=== PATIENT | male | born 1945 | race Caucasian/White ===

== ENCOUNTER 2016-12-04 13:04 | Observation (INO) | payer MEDICARE ==
[~2016-12-04] VITALS: Ht 175.3 cm; Wt 83.6 kg
[~2016-12-04 13:04] MED LIST: ASPI325T32 PO; CRES20T PO; FLUO20TA28 PO; LANS30TA4 PO; LOSA25TA21 PO; METH750T3 PO; METO25TA6 PO; NIAC500T21 PO; NITR0.4T6 SL; POTA2TAB5 PO; RIVA1PAT9 TRANSDERM
[2016-12-04] MEDS ORDERED: Haloperidol 5 mg/mL Inj ONE ×2 (13:51→15:28)
[2016-12-04 13:56] VITALS: BP 167/88; PULSE 69; RESP 20; O2SAT 98
[2016-12-04] MEDS ORDERED: 0.9% Sodium Chloride 1,000 ML IV ONE (14:05)
--- NOTE | 2016-12-04 14:23 | ED.REPORT ---
HPI-General Illness Date of Service Dec 04, 2016 ED Provider: Gary Villareal MD Pateint is a 71 year old male with a hx of dementia, CAD, AAA, hyperlipidemia, and HTN who presents to the ED s/p a found him walking down [address]. was unsure if the patient was at baseline and brought him here. was contacted and reports he is at baseline. Per , he has been slowly declining and has even become aggressive at home. He takes rivastigmine daily but was not given his medications today. Unable to obtain further history from this patient secondary to his mental status and dementia. Nursing Notes Stated Complaint: DEMENTIA Chief Complaint: Psychiatric Complaint Nursing Notes Reviewed: Yes Allergies: Coded Allergies: codeine (Verified Allergy, Unknown, 02/23/15) Scheduled Aspirin (Aspirin) 81 Mg Tablet 81 MG PO DAILY Fluoxetine (Fluoxetine) 20 Mg Tablet 40 MG PO DAILY Lansoprazole ODT (Prevacid ODT) 30 Mg Tab.rap.dr 30 MG PO DAILY Losartan Potassium (Losartan Potassium) 25 Mg Tablet 25 MG PO DAILY Metoprolol Succinate ER (Metoprolol Succinate ER) 50 Mg Tab.er.24h 50 MG PO DAILY Niacin ER (Niacin ER) 1,000 Mg Tablet 3,000 MG PO HS [place]-3/Dha/Epa/Fish Oil (Fish Oil 1,000 mg Softgel) 1 Each Capsule 1 EACH PO DAILY Potassium Gluconate (Potassium Gluconate) 90 Mg Tablet 270 MG PO DAILY Rivastigmine Patch (Exelon Patch) 9.5 Mg Patch 9.5 MG TRANSDERM DAILY Rosuvastatin Calcium (Crestor) 20 Mg Tablet 20 MG PO DAILY Scheduled PRN Methocarbamol (Methocarbamol) 750 Mg Tablet 750 MG PO QID PRN PRN For Spasm Nitroglycerin SL (Nitroglycerin SL) 0.4 Mg Tab.subl 0.4 MG SL Q5MIN PRN PRN For Chest Pain General Time Seen by MD: 14:04 Chief Complaint Altered mental status Hx Obtained From: Spouse, Police Arrived By: Police Sudden in Onset?: No Severity: Current: No pain currently Severity: Maximum: No pain Similar Sx Previous: Yes Past Medical History Past Medical History Notes: Patient states his chronic baseline heart rate is in the 40s. Past Medical History Coronary artery disease status post CABG for three-vessel disease in August 2009 at [facility]. Hypercholesterolemia Expressive aphasia Peripheral vascular disease history of AAA (unknown size, actively monitored by pcp) Mild dementia Reports: GERD, Hyperlipidemia, Hypertension Past Surgical History CABG 3 utilizing left internal mammary artery graft to left anterior descending, saphenous vein graft to the mus intermedius, radial artery graft to the right posterior descending in August 2009 Status post cardiac catheterization for possible ST segment elevation [place] - but it did not demonstrate any obvious acute ischemic substrate (he did have "mild to moderate distal left main disease and mild LAD disease, and PEREZ graft to his LAD was atretic probably related to a low-flow state chronically per the summary report") in August 2011 Retinal detachment repair Smoking History Former Smoker Social History Alcohol Use: "Social" Ambulatory Status Independent Unable to Obtain History Past medical history, Past surgical history, Family history, Smoking history, Social history, Occupation Review of Systems Unable to Obtain ROS Patient condition, Mental status Physical Exam Nursing note and vitals reviewed. Constitutional: Well-developed, well-nourished. Not diaphoretic. Head: Normocephalic and atraumatic. Mouth/Throat: Oropharynx is clear and moist. No oropharyngeal exudate. Eyes: Pupils are equal, round, and reactive to light. Neck: Supple, no tracheal deviation. Cardiovascular: Normal rate, regular rhythm. Equal and intact distal pulses throughout. Pulmonary/Chest: Effort normal and breath sounds normal. No respiratory distress. Abdominal: Soft. No distension. There is no tenderness, rebound, or guarding. Bowel sounds present. Musculoskeletal: Range of motion grossly intact, moving all extremities. No edema or tenderness appreciated. Neurological: Alert. Grossly nonfocal exam. Strength and sensation seems intact and equal to bilateral upper and lower extremities. Normal gait. Slurred speech (at baseline per ). Skin: Warm and dry, no rashes or pallor appreciated. Psychiatric: Unable to assess secondary to patient's mental status. Vital Signs Vital Signs Date Time Temp Pulse Resp B/P Pulse Ox O2 Delivery O2 Flow Rate FiO2 12/04/16 13:56 69 20 167/88 98 Room Air Interpretation & Diagnostics Lab Results Interpretation Result Diagram: 12/04/16 1423 12/04/16 1423 Test 12/04/16 14:23 White Blood Count 5.6th/mm3 (3.8-10.1) Red Blood Count 4.74mil/mm3 (4.40-5.80) Hemoglobin 15.2g/dL (13.8-17.2) Hematocrit 42.8% (41.0-50.0) Mean Corpuscular Volume 90.3fL (81-100) Mean Corpuscular Hemoglobin 32.1pg (27.0-35.0) Mean Corpuscular Hemoglobin Concent 35.5% (32.0-37.0) Red Cell Distribution Width 13.1% (12.3-15.4) Platelet Count 109bil/L (150-400) Neutrophils (%) (Auto) 71.2% (40-74) Lymphocytes (%) (Auto) 15.9% (14-46) Monocytes (%) (Auto) 10.8% (4-12) Eosinophils (%) (Auto) 1.3% (0-5) Basophils (%) (Auto) 0.4% (0-3) Sodium Level 138mEq/L (134-144) Potassium Level 4.2mEq/L (3.5-5.2) Chloride Level 99mEq/L (97-108) Carbon Dioxide Level 22mmol/L (18-29) Blood Urea Nitrogen 16mg/dL (8-27) Creatinine 0.91mg/dL (0.76-1.27) Estimat Glomerular Filtration Rate 87mL/min (>59) Glucose Level 125mg/dL (60-99) Lactic Acid Level 1.4mmol/L (0.4-2.0) Calcium Level 9.4mg/dL (8.5-10.1) Magnesium Level 1.7mg/dL (1.6-2.6) Total Bilirubin 0.9mg/dL (0.0-1.2) Aspartate Amino Transf (AST/SGOT) 22U/L (0-50) Alanine Aminotransferase (ALT/SGPT) 16U/L (0-44) Alkaline Phosphatase 74U/L (25-160) Total Protein 7.2g/dL (6.4-8.4) Albumin 4.9g/dL (3.4-5.0) Alcohols < 10mg/dL (0-10) ECG Interpretation ECG Interpretation: sinus rate 61 Nonspecific untraventricular conduciton delay Inferior infarct, old Time: 14:50 Interpreted by: ED physician X-Ray Chest Interpretation Chest Xray Interpretation: IMPRESSION: No acute pulmonary process. Right apex is obscured as above. Dictated by: Maryana Gurrola M.D. on 12/04/2016 at 14:27 Approved by: Maryana Gurrola M.D. on 12/04/2016 at 14:28 View: Portable, 1 view Interpretation / Wet Read by: Interpret - Radiologist CT Head Interpretation IMPRESSION: No acute intracranial abnormality. Dictated by: Shaggy Steel M.D. on 12/04/2016 at 15:08 Approved by: Shaggy Steel M.D. on 12/04/2016 at 15:09 Study: Head CT no contrast Interpretation / Wet Read by: Interpret - Radiologist Re-Eval/Medical Decision Med Decision/Clinical Course In summary, 71-year-old male with a history of dementia presenting to the ED after being found wandering in the streets and brought in by the Laboratory Technician after concerned that he would be an imminent threat to himself or others. arrives to the ED shortly after his arrival and states that he is at his baseline with respect to his neurologic status and slurred speech, however has been having some waxing and waning aggression and altered mental status over the past several days. Concern for delirium versus metabolic abnormality versus acute intracranial abnormality. Head CT negative for acute abnormality. Laboratory studies unremarkable, including a normal CMP, CBC (with the exception of platelets of 109) blood alcohol negative; urinalysis pending at this time. Chest x-ray with no evidence of a pneumonia. is concerned that she will no longer be able to care for him at home and he is not taking adequate care of himself. Given the above, plan admission for further management and evaluation of his delirium and failure to thrive. Of note, upon his arrival, he was not cooperative with staff, aggressive, and despite extensive verbal de-escalation, the patient required Haldol, Ativan, and Benadryl. He responded well to this and was sleeping afterwards. Family agreeable to the plan as stated, no further questions. Source of Hx: Old records Time of Eval: 14:30 Re-Evaluation/Progress Note: Discussed plan for admission with pt's . understands and agrees with plan. All questions addressed at this time. Consultation : Referral / Consult Name: Oswaldo Harris MD Consulted With: Hospitalist Call Returned at: 15:07 Roll Operator: Will see patient, Agrees with eval, Agrees with plan, Accepts admit Note: Discussed pt's case. Accepts admit. Counseled Regarding: Diagnosis, Need for admission Discharge & Departure Primary Impression: Delirium Additional Impression: Failure to thrive Failure to thrive age range: in adult Qualified Code: R62.7 - Adult failure to thrive Disposition: ADMITTED TO HOSPITAL Discharge Condition All VS Reviewed: Yes Condition: Stable Referrals: Lennox Nguyễn MD (PCP) Scribe Attestation Portions of this note were transcribed by Yana Kinsey. I, Dr. Villareal personally performed the history, physical exam and medical decision-making; I reviewed and confirmed the accuracy of the information in the transcribed note. Signed by: Av Elizondo, 12/04/16 copies to: Lennox Nguyễn MD, William B MD Dec 04, 2016 14:23 YANA KINSEY Dec 04, 2016 14:29
[2016-12-04 14:30] LABS: BASOPHILS % (AUTO) 0.4 % (0-3); EOSINOPHILS % (AUTO) 1.3 % (0-5); MONOCYTES % (AUTO) 10.8 % (4-12); Mean Corpuscular Hemoglobin 32.1 pg (27.0-35.0); Mean Corpuscular Volume 90.3 fL (81-100); NEUTROPHILS % (AUTO) 71.2 % (40-74); Platelet Count 109 bil/L (150-400)
--- NOTE | 2016-12-04 14:30 | DRSVH ---
PROCEDURE: X-RAY CHEST ONE VIEW, PORTABLE ([id number]) INDICATIONS: dementia, Altered mental status TECHNIQUE: One view of the chest was acquired. COMPARISON: [facility], , CHEST 1VW (PORTABLE), 07/28/2014, 16:09. FINDINGS: Surgical changes and devices: Sternal wires consistent with previous sternotomy. Lungs and pleura: No pleural effusions or pneumothorax. Lungs are clear. It is noted that the righ t apex remains obscured secondary to patient positioning. Mediastinum: Mediastinal contours appear normal. Heart size is normal. Bones and chest wall: No suspicious bony lesions. Overlying soft tissues appear unremarkable. IMPRESSION: No acute pulmonary process. Right apex is obscured as above. Dictated by: Maryana Gurrola M.D. on 12/04/2016 at 14:27 Approved by: Maryana Gurrola M.D. on 12/04/2016 at 14:28
[2016-12-04 14:54] LABS: Magnesium 1.7 mg/dL (1.6-2.6)
--- NOTE | 2016-12-04 15:10 | DRSVH ---
PROCEDURE: CT BRAIN WITHOUT CONTRAST ([id number]) INDICATIONS: AMS TECHNIQUE: Noncontrast 4.5 mm thick angled axial sections acquired from the foramen magnum to the vertex, with c oronal reformats. COMPARISON: [facility], CT, CT BRAIN WO CON, 02/23/2015, 16:59. FINDINGS: Image quality: Limited by positioning factors. CSF spaces: Basal cisterns are patent. No extra-axial fluid collections. The ventricles are symmet sunshine in size and shape. Brain: No intracranial bleeds or masses. There is cerebral volume loss for age, with resultant vent ricular and sulcal prominence. There are periventricular and deep white matter chronic small vessel ischemic changes. There is intracranial internal carotid artery atherosclerosis. Skull and face: Calvarium and visualized facial bones appear intact, without suspicious lesions. Sinuses: Visualized sinuses and mastoids are clear. IMPRESSION: No acute intracranial abnormality. Dictated by: Shaggy Steel M.D. on 12/04/2016 at 15:08 Approved by: Shaggy Steel M.D. on 12/04/2016 at 15:09
[2016-12-04] MEDS ORDERED: NIAC100045 PO (15:15)
[2016-12-04] MEDS ORDERED: METO-272 PO (15:15)
[2016-12-04] MEDS ORDERED: RIVA1PAT3 TRANSDERM (15:15)
[2016-12-04] MEDS ORDERED: OMEG-38 PO (15:15)
[2016-12-04] MEDS ORDERED: ASPI-973 PO (15:15)
[2016-12-04] MEDS ORDERED: Polyethylene Glycol (PEG) 17 Gm Powder PO PRN (15:40)
[2016-12-04] MEDS ORDERED: Ondansetron 2 mg/mL 2 mL Inj IVPUSH PRN (15:40)
[2016-12-04] MEDS ORDERED: Alum-Mag Hydrox-Simeth 30 mL Suspension PO PRN (15:40)
--- NOTE | 2016-12-04 16:13 | NUR ---
Arrival to Floor Patient arrives to floor from ED via gurney with two soft restraints in place. Patient non-verbal, kicking at staff with legs. Skin tear noted on left hand and arm. No IV access at this time, patient uncooperative with assessment. After 10 min time post transfer patient resting with the appearance of comfort. Sitter present at bedside, skin tears dressed by charge master specialist. Care is ongoing.
[2016-12-04 18:17] VITALS: BP 159/80; PULSE 54; RESP 14; O2SAT 95
--- NOTE | 2016-12-04 20:21 | PCM.HPMED ---
Subjective Date of Service Dec 04, 2016 Primary Provider: Admitting Physician: Oswaldo Harris MD Primary Care Physician: Lennox Nguyễn MD Attending Physician: Oswaldo Harris MD Chief Complaint: Altered mental status, brought in by police History of Present Illness: Mr. Niall De La Rosa is a 71-year-old male with a past medical history of CAD, AAA, hyperlipidemia, and HTN, progressive dementia and recent increase in aggressive activity at home, presenting to the ED after being found wandering [address] and brought in by the Administrative Analyst after concerned that he would be an imminent threat to himself or others. arrived to the ED shortly after his arrival and states that he is at his baseline with respect to his neurologic status and slurred speech. She reports however he has been having some waxing and waning aggression and altered mental status over the past several days. She states she cannot care for him any longer. Of note, upon his arrival, he was not cooperative with staff, aggressive, and despite extensive verbal de-escalation, the patient required Haldol, Ativan, and Benadryl. He responded well to this and was sleeping afterwards. Family agreeable to the plan as stated, no further questions. He has a rivastigmine patch on daily but was not given his medications today. Unable to obtain further history from this patient secondary to his mental status and dementia. In the ED patients vitals: T-36.2, HR-54, RR-14, BP-167/88, 98% RA. Head CT negative for acute abnormality. Chest x-ray with no evidence of a pneumonia. No notable lab abnormalities aside from CBC (with the exception of platelets of 109) blood alcohol negative; urinalysis pending at this time. Patient was admitted as an inpatient for delirium and failure to thrive. Review of Systems: A comprehensive review of systems was conducted with the patient and found to be negative except as above in the History of Present Illness. Allergies Coded Allergies: codeine (Verified Allergy, Unknown, 02/23/15) Home Medications Scheduled Aspirin (Aspirin) 81 Mg Tablet 81 MG PO DAILY Fluoxetine (Fluoxetine) 20 Mg Tablet 40 MG PO DAILY Lansoprazole ODT (Prevacid ODT) 30 Mg Tab.rap.dr 30 MG PO DAILY Losartan Potassium (Losartan Potassium) 25 Mg Tablet 25 MG PO DAILY Metoprolol Succinate ER (Metoprolol Succinate ER) 50 Mg Tab.er.24h 50 MG PO DAILY Niacin ER (Niacin ER) 1,000 Mg Tablet 3,000 MG PO HS [place]-3/Dha/Epa/Fish Oil (Fish Oil 1,000 mg Softgel) 1 Each Capsule 1 EACH PO DAILY Potassium Gluconate (Potassium Gluconate) 90 Mg Tablet 270 MG PO DAILY Rivastigmine Patch (Exelon Patch) 9.5 Mg Patch 9.5 MG TRANSDERM DAILY Rosuvastatin Calcium (Crestor) 20 Mg Tablet 20 MG PO DAILY Scheduled PRN Methocarbamol (Methocarbamol) 750 Mg Tablet 750 MG PO QID PRN PRN For Spasm Nitroglycerin SL (Nitroglycerin SL) 0.4 Mg Tab.subl 0.4 MG SL Q5MIN PRN PRN For Chest Pain PMH Coronary artery disease status post CABG for three-vessel disease in August 2009 at [facility]. Hypercholesterolemia Expressive aphasia Peripheral vascular disease history of AAA (unknown size, actively monitored by pcp) Mild dementia Reports: GERD, Hyperlipidemia, Hypertension Surgical History CABG 3 utilizing left internal mammary artery graft to left anterior descending, saphenous vein graft to the mus intermedius, radial artery graft to the right posterior descending in August 2009 Status post cardiac catheterization for possible ST segment elevation [place] - but it did not demonstrate any obvious acute ischemic substrate (he did have "mild to moderate distal left main disease and mild LAD disease, and PEREZ graft to his LAD was atretic probably related to a low-flow state chronically per the summary report") in August 2011 Retinal detachment repair Family History Unobtainable due to patient condition. Social History Hx Alcohol Use: Yes (occasional wine) Hx Substance Use: No Hx Tobacco Use: Yes (Quit) Smoking Status: Former Smoker Exam Vital Signs Vital Sign - Last Date Time Temp Pulse Resp B/P Pulse Ox O2 Delivery O2 Flow Rate FiO2 12/04/16 18:17 36.2 54 14 159/80 95 Room Air Exam Constitutional: Well-developed, well-nourished. Not diaphoretic. Head: Normocephalic and atraumatic. Mouth/Throat: Oropharynx is clear and moist. No oropharyngeal exudate. Eyes: Pupils are equal, round, and reactive to light. Neck: Supple, no tracheal deviation. Cardiovascular: Normal rate, regular rhythm. Equal and intact distal pulses throughout. Pulmonary/Chest: Effort normal and breath sounds normal. No respiratory distress. Abdominal: Soft. No distension. There is no tenderness, rebound, or guarding. Bowel sounds present. Musculoskeletal: Range of motion grossly intact, moving all extremities. No edema or tenderness appreciated. Neurological: Alert. Grossly nonfocal exam. Strength and sensation seems intact and equal to bilateral upper and lower extremities. Normal gait. Slurred speech (at baseline per ). Skin: Warm and dry, no rashes or pallor appreciated. Psychiatric: Unable to assess secondary to patient's mental status. Lab and Diagnostics Result Diagram: 12/04/16 1423 12/04/16 1423 X-Rays, CTs and MRIs CT BRAIN WITHOUT CONTRAST IMPRESSION: No acute intracranial abnormality. Approved by: Shaggy Steel M.D. on 12/04/2016 at 15:09 X-RAY CHEST ONE VIEW, PORTABLE IMPRESSION: No acute pulmonary process. Right apex is obscured as above. Dictated by: Maryana Gurrola M.D. on 12/04/2016 at 14:27 Assessment & Plan Mr. Niall De La Rosa is a 71-year-old male with a past medical history of CAD, AAA, hyperlipidemia, and HTN, progressive dementia and recent increase in aggressive activity at home, presenting to the ED after being found wandering [address] and brought in by the Administrative Analyst after concerned that he would be an imminent threat to himself or others. arrived to the ED shortly after his arrival and states that he is at his baseline with respect to his neurologic status and slurred speech. Patient was admitted as an inpatient for delirium and failure to thrive. Acute Delirium with underlying dementia with agitation,likely 2nd to progressive unspecified Dementia, present on admission. Active. - Not likely metabolic encephalopathy, normal labs, etoh negative. - reports this baseline. - CT brain as above. - CXR as above. - IV/IM Ativan 2mg Q4H prn mild to moderate anxiety/agitation, Haldol 1-5mg Q2H PRN severe anxiety/agitation. - Will consider Seroquel 25 mg BID, need to okay with family. - Continue home Exelon patch. Failure to thrive. - Social work referral. Coronary Artery Disease. - Continue home Aspirin 81 mg daily. - Continue home Sub lingual nitro prn chest pain. - Holding home [place]-3 1000mg daily. Hypertension - Continue home Losartan 25 mg daily. - Continue home Metoprolol succinate 50 mg daily. Hyperlipidemia - Continue home Rosuvastain 20 mg daily. - Continue home Niacin 3000 Mg HS. Depression. - Continue home History of spasms. - Holding home Methocarbamol 750 mg prn. GERD - Continue home Lansoprazole. At this point we have not gained IV access and patient is medicated. Will give PO medications when tolerated, and will switch to IV forms once we obtain IV access. Acetaminophen for mild pain when necessary. Bowel regimen Senna and MiraLAX scheduled and PRN. Zofran when necessary for nausea and vomiting. SubQ heparin held for now. SCDs in place. High-risk medications: IV/IM Haldol IV/IM Ativan Patient Status: Patient is admitted under inpatient status with expected length of stay greater than 2 midnights due to severity of presenting symptoms, risk of adverse event, and complexity of treatment plan. Pain Evaluation: Adequate Pain Control Resuscitation Status: CPR: Attempt Resuscitation Attending Statement patient seen and examined with the resident physician Dr. Hunter, I agree with the history, exam, assessment and plan as outlined above copies to: Lennox Nguyễn MD, COREY P DO Dec 04, 2016 20:21 Oswaldo Harris MD Dec 05, 2016 07:37
[2016-12-04] MEDS ORDERED: Haloperidol 5 mg/mL Inj IM PRN (20:25)
[2016-12-04 21:11] VITALS: BP 134/78; PULSE 44; RESP 16; O2SAT 96
[2016-12-05] VITALS (8 sets, daily range): BP systolic 124–143; BP diastolic 69–79; PULSE 41–75; RESP 16–20; O2SAT 95–98
--- NOTE | 2016-12-05 00:57 | NUR ---
HR/IV Pt HR mid to high 40's with sleep. Occasionally drops to high 30's. Has been as high as low 60's with activity. Gave IM Ativan once so far this shift. Pt on continuous pulse ox. No tele. IV access complete, right forearm. Pt tolerated very well. Per Dr. Pettit, new tele orders. If HR sustained below 35 contact Hospitalist.
[2016-12-05 06:37] LABS: BASOPHILS % (AUTO) 0.2 % (0-3); EOSINOPHILS % (AUTO) 3.1 % (0-5); MONOCYTES % (AUTO) 12.5 % (4-12); Mean Corpuscular Hemoglobin 32.5 pg (27.0-35.0); NEUTROPHILS % (AUTO) 58.8 % (40-74); Platelet Count 93 bil/L (150-400)
[2016-12-05 07:01] LABS: Magnesium 1.9 mg/dL (1.6-2.6)
--- NOTE | 2016-12-05 13:45 | NUR ---
LYNNETTE explained to pt's who is at bedside, she signed CHURCH. Copy of CHURCH given to pt's .
--- NOTE | 2016-12-05 15:42 | PCM.PNMED ---
Subjective Date of Service Dec 05, 2016 Subjective patient continues to be confused and agitated requiring restraint and a sitter Exam Vital Signs Vital Sign - Last Date Time Temp Pulse Resp B/P Pulse Ox O2 Delivery O2 Flow Rate FiO2 12/05/16 12:52 37.0 65 18 137/79 96 Nasal Cannula 1.00 Intake and Output 12/04/16 12/04/16 12/05/16 Cumulative From/Thru 15:00 23:00 07:00 12/04/16 13:56 - 12/05/16 05:23 Intake Total 0 ml 0 ml 0 ml Output Total 742 ml 742 ml Balance 0 ml -742 ml -742 ml Intake Oral 0 ml 0 ml 0 ml Output Urine Total 742 ml 742 ml # Voids 1 1 # Bowel Movements 0 0 Exam Constitutional: Well-developed, well-nourished. Not diaphoretic. Head: Normocephalic and atraumatic. Mouth/Throat: Oropharynx is clear and moist. No oropharyngeal exudate. Eyes: Pupils are equal, round, and reactive to light. Neck: Supple, no tracheal deviation. Cardiovascular: Normal rate, regular rhythm. Equal and intact distal pulses throughout. Pulmonary/Chest: Effort normal and breath sounds normal. No respiratory distress. Abdominal: Soft. No distension. There is no tenderness, rebound, or guarding. Bowel sounds present. Musculoskeletal: Range of motion grossly intact, moving all extremities. No edema or tenderness appreciated. Neurological: Alert. Grossly nonfocal exam. Strength and sensation seems intact and equal to bilateral upper and lower extremities. Normal gait. Slurred speech (at baseline per ). Skin: Warm and dry, no rashes or pallor appreciated. Psychiatric: Unable to assess secondary to patient's mental status. IVs and Medications Medications Reviewed: Medications were reviewed in detail Lab and Diagnostics Result Diagram: 12/05/16 0620 12/05/16 0620 X-Rays, CTs and MRIs CT BRAIN WITHOUT CONTRAST IMPRESSION: No acute intracranial abnormality. Approved by: Shaggy Steel M.D. on 12/04/2016 at 15:09 X-RAY CHEST ONE VIEW, PORTABLE IMPRESSION: No acute pulmonary process. Right apex is obscured as above. Dictated by: Maryana Gurrola M.D. on 12/04/2016 at 14:27 Assessment & Plan Mr. Niall De La Rosa is a 71-year-old male with a past medical history of CAD, AAA, hyperlipidemia, and HTN, progressive dementia and recent increase in aggressive activity at home, presenting to the ED after being found wandering [address] [address] and brought in by the Platform Sta[employer] after concerned that he would be an imminent threat to himself or others. arrived to the ED shortly after his arrival and states that he is at his baseline with respect to his neurologic status and slurred speech. Patient was admitted as an inpatient for delirium and failure to thrive. # Acute Delirium with underlying dementia with agitation,likely 2nd to progressive unspecified Dementia, present on admission. Active. - Not likely metabolic encephalopathy, normal labs, etoh negative. - Son states his father has been having progressive dementia for the last 5 years which worsened in the last 1 [address] - [address] brain as above. - CXR as above. - IV/IM Ativan 2mg Q4H prn mild to moderate anxiety/agitation, Haldol 1-5mg Q2H PRN severe anxiety/agitation. - Will start Seroquel 25 mg BID, spoke with and son and discussed prons and cons including FDA warning of increased risk of mortality . consented to use haldol and seroquel in attempt to take off restraint - Continue home Exelon patch. # Coronary Artery Disease. - Continue home Aspirin 81 mg daily. - Continue home Sub lingual nitro prn chest pain. - Holding home [place]-3 1000mg daily. # Hypertension - Continue home Losartan 25 mg daily. - Continue home Metoprolol succinate 50 mg daily. # Hyperlipidemia - Continue home Rosuvastain 20 mg daily. - Continue home Niacin 2000 Mg HS. # Depression. - Continue home # History of spasms. - Holding home Methocarbamol 750 mg prn. # GERD - Continue home Lansoprazole. At this point we have not gained IV access and patient is medicated. Will give PO medications when tolerated, and will switch to IV forms once we obtain IV access. Acetaminophen for mild pain when necessary. Bowel regimen Senna and MiraLAX scheduled and PRN. Zofran when necessary for nausea and vomiting. SubQ heparin held for now. SCDs in place. High-risk medications: IV/IM Haldol IV/IM Ativan Patient Status: Patient is admitted under observation status planning to place him to a dementia center . SW working with family VTE Mechanical Devices: Intermittant Pneumatic CD Resuscitation Status: CPR: Attempt Resuscitation Oswaldo Harris MD Dec 05, 2016 15:42
--- NOTE | 2016-12-05 16:31 | NUR ---
Status MD has discussed POC with spouse and son. Restraints continue w/o complication. Pt remains intermittently restless but stable, and only combative with cares. Eating and drinking with assistance from . Remains incontinent. Keeping clean and dry. Seroquel started. Will continue to monitor.
[2016-12-05] MEDS: Niacin SR 500 mg ER12 Tablet PO SCH (20:49)
[2016-12-06] VITALS (11 sets, daily range): BP systolic 113–140; BP diastolic 68–87; PULSE 61–102; RESP 18–22; O2SAT 94–96
--- NOTE | 2016-12-06 07:35 | NUR ---
Restraints Patient remains in 4 point restraints related to combativeness with care. Patient refused PO medications last night. Two attempts were made to give patient medications in apple sauce, but patient would not take them. Patient on 1L nasal canula at 94%. Receiving Ativan for anxiety and agitation. Patient incontinent and wearing brief. Patient combative with brief changes. Care continues.
[2016-12-06] MEDS ORDERED: POTASSIUM GLUCONATE PO SCH (08:30)
[2016-12-06] MEDS: Omega-3-Acid Ethyl Esters 1 Gm Capsule PO SCH (08:30)
[2016-12-06] MEDS: Lansoprazole 30 mg ODTablet PO SCH (08:30)
--- NOTE | 2016-12-06 09:00 | NUR ---
Social Work: Initial Assessment D: EMR reviewed. Please see Initial Assessment linked to this note for more information. Pt is a 71 y/o male admitted [facility] for delerium, failure to thrive per H&P. Pt has a readmit risk score of 2. SW met with pt at bedside to conduct initial assessment. Pt not alert and oriented - not an appropriate historian due to delirium. SW placed T/C to pt's spouse/DPOA Lela De La Rosa ([phone]) to complete initial assessment. SW explained role and provided phone number. SW confirmed with spouse that SW will leave [facility] Discharge Planning Checklist in pt's room and write phone number on white board. SW encouraged pt's spouse to contact SW for any discharge planning questions. Pt's insurance is [employer] and PCP is Lennox Nguyễn. Pt's spouse has copy of DPOA and will bring another copy to hospital today. Prior to coming to hospital, pt lived at home with spouse in [place]. Pt's spouse states pt's mentation has declined in the recent months and she is no longer able to care for him at home. Pt's spouse Lela states she has already set-up alternative placement for pt at [facility]. 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 Lela states [facility] will conduct assessment prior to pt's discharge and then accept pt. [facility] will pay for pt's LTC at [facility]. [facility] requires that Lela pay 1st month up-front and she will be reimbursed later. [facility] will pay all months there after. Lela states that she is able to pay the $4,500 (for shared room) or $7,500 for private room up-front. LEONOR will pay for private room if MD indicates medical necessity for private room. Based on pt's stay in hospital thus far - need for restraints, increased agitation, MELANIE will consult with MD regarding need for private room - if MD is agreeable, MELANIE will request MD write letter to LEONOR stating medical necessity for private room. MELANIE will follow-up with Lela and [facility] (Anjelica and Maria C are her main contacts at [facility]) after consulting with MD. MELANIE will continue to follow. A: Pt who is not independent at baseline and for whom [facility] LTC (private-pay) has been pre-arranged by spouse. P: SW to follow-up with MD regarding possible need for private room and request letter for [facility] if MD agreeable. SW to follow-up with [facility] regarding assessment and pt's readiness for discharge. SW will follow-up with spouse Lela regarding discharge plan and timeline after working with MD and [facility]. ALICIA Diaz Addendum: 12/06/16 at 0914 by MARCELINO BERNARD Amended: Links added.
--- NOTE | 2016-12-06 10:51 | NUR ---
Rounds MD notified that pt able to tolerate crushable meds this am. Spit out non crushable meds and capsules. Will attempt to collect UA with least invasive measures first. Pt a bit restless this am and pulling aware from cares. Restraints remain intact, MD aware. No skin/circulation/ROM complications. Will continue to monitor for ability to reduce sot restraint use.
[2016-12-06 14:18] LABS: APPEARANCE,URINE CLEAR (CLEAR,HAZY); COLOR,URINE YELLOW (YELLOW)
[2016-12-06 14:19] LABS: OCCULT BLOOD,URINE TRACE (NEGATIVE)
--- NOTE | 2016-12-06 14:27 | PCM.PNMED ---
Subjective Date of Service Dec 06, 2016 Subjective patient continues to be confused and agitated requiring restraint and a sitter Exam Vital Signs Vital Sign - Last Date Time Temp Pulse Resp B/P Pulse Ox O2 Delivery O2 Flow Rate FiO2 12/06/16 09:56 70 12/06/16 09:30 36.8 22 121/82 94 Nasal Cannula 1.00 Intake and Output 12/05/16 12/05/16 12/06/16 Cumulative From/Thru 15:00 23:00 07:00 12/04/16 13:56 - 12/06/16 06:28 Intake Total 550 ml 0 ml 550 ml Output Total 598 ml 1340 ml Balance 550 ml -598 ml -790 ml Intake Oral 550 ml 0 ml 550 ml Output Urine Total 598 ml 1340 ml # Voids 2 3 # Bowel Movements 0 0 0 Exam Constitutional: Well-developed, well-nourished. Not diaphoretic. Head: Normocephalic and atraumatic. Mouth/Throat: Oropharynx is clear and moist. No oropharyngeal exudate. Eyes: Pupils are equal, round, and reactive to light. Neck: Supple, no tracheal deviation. Cardiovascular: Normal rate, regular rhythm. Equal and intact distal pulses throughout. Pulmonary/Chest: Effort normal and breath sounds normal. No respiratory distress. Abdominal: Soft. No distension. There is no tenderness, rebound, or guarding. Bowel sounds present. Musculoskeletal: Range of motion grossly intact, moving all extremities. No edema or tenderness appreciated. Neurological: Alert. Grossly nonfocal exam. Strength and sensation seems intact and equal to bilateral upper and lower extremities. Normal gait Psychiatric: Confused aggressive and agitated. Requiring restraints IVs and Medications Medications Reviewed: Medications were reviewed in detail Lab and Diagnostics Result Diagram: 12/05/1661912/05/16619 X-Rays, CTs and MRIs CT BRAIN WITHOUT CONTRAST IMPRESSION: No acute intracranial abnormality. Approved by: Shaggy Steel M.D. on 12/04/2016 at 15:09 X-RAY CHEST ONE VIEW, PORTABLE IMPRESSION: No acute pulmonary process. Right apex is obscured as above. Dictated by: Maryana Gurrola M.D. on 12/04/2016 at 14:27 Assessment & Plan Mr. Niall De La Rosa is a 71-year-old male with a past medical history of CAD, AAA, hyperlipidemia, and HTN, progressive dementia and recent increase in aggressive activity at home, presenting to the ED after being found wandering [address] and brought in by the [employer] after concerned that he would be an imminent threat to himself or others. arrived to the ED shortly after his arrival and states that he is at his baseline with respect to his neurologic status and slurred speech. Patient was admitted as an inpatient for delirium and failure to thrive. # Acute Delirium with underlying dementia with agitation,likely 2nd to progressive unspecified Dementia, present on admission. Active. - Not likely metabolic encephalopathy, normal labs, etoh negative. - Son states his father has been having progressive dementia for the last 5 years which worsened in the last 1 [address] - [address] brain as above. - CXR as above. - IV/IM Ativan 2mg Q4H prn mild to moderate anxiety/agitation, Haldol 1-5mg Q2H PRN severe anxiety/agitation. - started Seroquel 25 mg BID, spoke with and son and discussed prons and cons including FDA warning of increased risk of mortality . consented to use haldol and seroquel to control behavior - Continue home Exelon patch. - Lela working with to place patient at [facility] # Coronary Artery Disease. - Continue home Aspirin 81 mg daily. - Continue home Sub lingual nitro prn chest pain. - Holding home [place]-3 1000mg daily. # Hypertension - Continue home Losartan 25 mg daily. - Continue home Metoprolol succinate 50 mg daily. # Hyperlipidemia - Continue home Rosuvastain 20 mg daily. - Continue home Niacin 2000 Mg HS. # Depression. - Continue home # History of spasms. - Holding home Methocarbamol 750 mg prn. # GERD - Continue home Lansoprazole. Acetaminophen for mild pain when necessary. Bowel regimen Senna and MiraLAX scheduled and PRN. Zofran when necessary for nausea and vomiting. SubQ heparin held for now. SCDs in place. High-risk medications: IV/IM Haldol IV/IM Ativan Patient Status: Patient is admitted under observation status Lela working with to place patient at [facility]. Personnel from [facility] to come and see patient to accept Possible discharge tomorrow discussed goals of care with DPOA Lela De La Rosa ,she signed POLST form DNR/DNI VTE Mechanical Devices: Intermittant Pneumatic CD Resuscitation Status: DNR/DNI:Do Not Resuscitate/Intubate Oswaldo Harris MD Dec 06, 2016 14:27
--- NOTE | 2016-12-06 16:43 | NUR ---
Status MD notified that pt HR in low 100s, 101-105, intermittently this afternoon, very little po intake today, and that ativan given once new PIV placed. Family currently at bedside. MD updated POLST with /POA this afternoon. No complications with restraints. Will continue to monitor.
[2016-12-06] MEDS: Niacin SR 500 mg ER12 Tablet PO SCH (20:50)
[2016-12-07] VITALS (9 sets, daily range): BP systolic 107–140; BP diastolic 66–98; PULSE 64–175; RESP 16–20; O2SAT 94–96
--- NOTE | 2016-12-07 04:48 | NUR ---
Care update Pt restless and agitated at start of shift, son at bedside, requested meds. PRN ativan given and Pt was able to relax, awake and mumbles when talking. Pt remains in restraints, ROM competed and Pt being positioned to off load pressure every 2hrs from left to right and flat on his back. Per son Pt has had low back pain for a long time. Pt appears comfortable, some resistance noted when giving care but no attempts to strike. Bed locked and low, remedios alarm on for safety. Care continues
[2016-12-07] MEDS: Omega-3-Acid Ethyl Esters 1 Gm Capsule PO SCH (09:09)
[2016-12-07] MEDS: Lansoprazole 30 mg ODTablet PO SCH (09:09)
--- NOTE | 2016-12-07 10:54 | NUR ---
Activity Pt able to follow commands. Needs cues to swallow and take pills. Pt ate some breakfast. Pt asked "why am I here, what happened?" while being tearful. Pt calm, left leg restraint removed. Q2 turns for comfort. Pt's at bedside. Pt positioned near nursing station. Care continues.
[2016-12-07] MEDS: Haloperidol 5 mg/mL Inj IVPUSH PRN ×2 (11:42→13:22)
--- NOTE | 2016-12-07 12:49 | PCM.PNMED ---
Subjective Date of Service Dec 07, 2016 Subjective patient continues to be confused and agitated requiring restraint but slightly calmer today and not as agitated as yesterday Exam Vital Signs Vital Sign - Last Date Time Temp Pulse Resp B/P Pulse Ox O2 Delivery O2 Flow Rate FiO2 12/07/16 12:13 36.7 114 140/98 94 Nasal Cannula 1.00 12/07/16 08:17 20 Intake and Output 12/06/16 12/06/16 12/07/16 Cumulative From/Thru 15:00 23:00 07:00 12/04/16 13:56 - 12/07/16 05:22 Intake Total 200 ml 0 ml 750 ml Output Total 850 ml 2190 ml Balance -650 ml 0 ml -1440 ml Intake Oral 200 ml 0 ml 750 ml Output Urine Total 850 ml 2190 ml # Voids 2 5 # Bowel Movements 0 0 Exam Constitutional: Well-developed, well-nourished. Not diaphoretic. Head: Normocephalic and atraumatic. Eyes: Pupils are equal, round, and reactive to light. Neck: Supple, no tracheal deviation. Cardiovascular: Normal rate, regular rhythm. Equal and intact distal pulses throughout. Pulmonary/Chest: Effort normal and breath sounds normal. No respiratory distress. Abdominal: Soft. No distension. There is no tenderness, rebound, or guarding. Bowel sounds present. Musculoskeletal: Range of motion grossly intact, moving all extremities. No edema or tenderness appreciated. Neurological: Alert. Grossly nonfocal exam. Strength and sensation seems intact and equal to bilateral upper and lower extremities. Normal gait Psychiatric: Confused aggressive and agitated. Requiring restraints IVs and Medications Medications Reviewed: Medications were reviewed in detail Lab and Diagnostics Result Diagram: 12/05/1661912/05/16 06 X-Rays, CTs and MRIs CT BRAIN WITHOUT CONTRAST IMPRESSION: No acute intracranial abnormality. Approved by: Shaggy Steel M.D. on 12/04/2016 at 15:09 X-RAY CHEST ONE VIEW, PORTABLE IMPRESSION: No acute pulmonary process. Right apex is obscured as above. Dictated by: Maryana Gurrola M.D. on 12/04/2016 at 14:27 Assessment & Plan Mr. Niall De La Rosa is a 71-year-old male with a past medical history of CAD, AAA, hyperlipidemia, and HTN, progressive dementia and recent increase in aggressive activity at home, presenting to the ED after being found wandering [employer] [address] and brought in by the Healthcare Advisory Services Manager after concerned that he would be an imminent threat to himself or others. arrived to the ED shortly after his arrival and states that he is at his baseline with respect to his neurologic status and slurred speech. Patient was admitted as an inpatient for delirium and failure to thrive. # Acute Delirium with underlying dementia with agitation,likely 2nd to progressive unspecified Dementia, present on admission. Active. - Not likely metabolic encephalopathy, normal labs, etoh negative. - Son states his father has been having progressive dementia for the last 5 years which worsened in the last [address] - [address] brain as above. - CXR as above. - IV/IM Ativan 2mg Q4H prn mild to moderate anxiety/agitation, Haldol 1-5mg Q2H PRN severe anxiety/agitation. - started Seroquel 25 mg BID, spoke with and son and discussed prons and cons including FDA warning of increased risk of mortality . consented to use haldol and seroquel to control behavior.increased to 25 in am and 50 hs . [facility] dementia center will not take patient if he is on restraint .will try to take off restraint 1 limb at time - Continue home Exelon patch. - Lela working with SW to place patient at [facility] # Coronary Artery Disease. - Continue home Aspirin 81 mg daily. - Continue home Sub lingual nitro prn chest pain. - Holding home [place]-3 1000mg daily. # Hypertension - Continue home Losartan 25 mg daily. - Continue home Metoprolol succinate 50 mg daily. # Hyperlipidemia - Continue home Rosuvastain 20 mg daily. - Continue home Niacin 2000 Mg HS. # Depression. - Continue home # History of spasms. - Holding home Methocarbamol 750 mg prn. # GERD - Continue home Lansoprazole. Acetaminophen for mild pain when necessary. Bowel regimen Senna and MiraLAX scheduled and PRN. Zofran when necessary for nausea and vomiting. SubQ heparin held for now. SCDs in place. High-risk medications: IV/IM Haldol IV/IM Ativan Patient Status: Patient is admitted under observation status Lela working with to place patient at [facility]. Personnel from [facility] to come and see patient to accept Possible discharge 1-2 days discussed goals of care with DPOA Lela Rj ,she signed POLST form DNR/DNI VTE Mechanical Devices: Intermittant Pneumatic CD Resuscitation Status: DNR/DNI:Do Not Resuscitate/Intubate Oswaldo Harris MD Dec 07, 2016 12:49
[2016-12-07] MEDS ORDERED: MeTOProlol XL 50 mg ER24 Tablet PO SCH (13:00)
--- NOTE | 2016-12-07 13:34 | NUR ---
Social Work- Continued D/C Planning Data: EMR reviewed. Pt is on day 3 of hospitalization for delirium, failure to thrive per H&P. Pt discussed in multidisciplinary rounds, pt is medically ready for d/c pending acceptance to [facility]. Maria C from [facility] completed assessment with pt at bedside. MELANIE provided clinical information to Maria C. Per Maria C, pt is not able to be accepted at [facility] if he is in restraints/requiring a sitter for combativeness. [facility] is a locked facility but they are not able to restrain patients and pt's agitation must be managed as [facility] does not have the staffing for a sitter. Maria C completed assessment at bedside regardless and ALICIA notified MD of restraint and sitter policy. MD is working to optimize pt's medications to assist in managing pt's agitation and working to d/c restraints. SW to follow up with Maria C regarding assessment and what else is necessary prior to pt arriving at [facility]. SW will continue to follow. Assessment: Pt who requires residential placement in a memory care facility Plan: Pt's d/c is pending [facility] acceptance. Pt cannot have restraints or a sitter at [facility]. MD is working to optimize pt's medications to assist in managing pt's agitation and working to d/c restraints. SW to follow up with Maria C regarding assessment and what else is necessary prior to pt arriving at [facility]. SW will continue to follow. ALICIA Padgett Addendum: 12/07/16 at 1618 by KELSIE SILVERIO T/T Maria C from [facility] regarding pt's goals prior to d/c to [facility]. Maria C outlined three goals. Pt must be out of restraints prior to d/c to [facility]. Pt cannot be combative or aggressive with personal care. Pt must be alert enough to feed himself or be fed. Pt does not need to be oriented but cannot be sedated. Pt is allowed to have a sitter to prevent him from wandering the acute floor as we are not a locked facility and wandering is not safe. When these are accomplished, Maria C will return to speak with pt and family at bedside and admit pt to [facility]. These goals communicated to farm supervisor and MD. All agreeable. SW will continue to follow. ALICIA Padgett
--- NOTE | 2016-12-07 15:07 | NUR ---
Medication Pt spit out part of his po metoprolol. Currently sinus 70s with a bp 107/66. pagecarlota.
--- NOTE | 2016-12-07 19:21 | NUR ---
Tele rfid technician called and pt was sinus 140s-150s. Pt was currently sleeping. MD notified and prn one time dose of metoprolol ordered for sustained tachycardia above 110 for 5 min. Talked with business technology architect again and while the pt was was in the 140s he converted to afib. Pt had another run of tachycardia and converted to afib. MD notified, and discharge planner ordered stat EKG. Pt asymptomatic of chest pain as he was resting comfortably in bed. Will continue to monitor.
--- NOTE | 2016-12-07 19:43 | NUR ---
Restraints Pt compliant with care. Family at bedside during the day and pt positioned near RN station. Removed second leg restraint. Medication given for agitation, and pt reoriented. Right wrist restraint removed. Will continue to monitor.
[2016-12-07] MEDS: Niacin SR 500 mg ER12 Tablet PO SCH ×2 (21:00→23:15)
--- NOTE | 2016-12-07 23:30 | NUR ---
Tachychardia Resolved HR at 160 at start of shift per tele- CPOX on is reporting HR in 50-60 range and is inaccurate. Per report patient had spit out earlier dose of metroprolol, PRN dose is available to be given for sustained HR above 110. Given 2029 scheduled dose of 50 mg metroprolol at 2003, HR of 105 at 2030 and sustaining Sinus Rythm, HR 64 at 2300. See emar for charting, PRN dose still available. Final wrist restraint removed at 2315, patient is sleeping comfortably with 1:1 sitter in room. Care continues
[2016-12-08] VITALS (8 sets, daily range): BP systolic 92–120; BP diastolic 59–84; PULSE 57–81; RESP 17–18; O2SAT 92–97
--- NOTE | 2016-12-08 00:56 | NUR ---
Care transferred to Mariana Agrawal RN
--- NOTE | 2016-12-08 01:17 | NUR ---
BOND TRADER; reports: sinus rhythm 61.
--- NOTE | 2016-12-08 01:42 | NUR ---
PSYCH; sleeping quietly at this time. No restraints on. Sitter at the bedside. BOILER TUBE BLOWER 97% on room air.
--- NOTE | 2016-12-08 06:03 | NUR ---
PSYCH; restless, repositioned, picking at things but not pulling. Ativan 1mg iv given with effectiveness.
--- NOTE | 2016-12-08 07:50 | NUR ---
Sitter Sitter at bedside to make sure that pt does not wander hallways unattended. Care conts
[2016-12-08] MEDS: Omega-3-Acid Ethyl Esters 1 Gm Capsule PO SCH (08:30)
[2016-12-08] MEDS: Lansoprazole 30 mg ODTablet PO SCH (09:41)
--- NOTE | 2016-12-08 10:45 | NUR ---
Social Work- Update Placed call to Maria C at [facility] and left message requesting return call to coordinate pt's bedside assessment. Awaiting return call. Malinda Laird MSW
--- NOTE | 2016-12-08 10:48 | NUR ---
Behavior update Spoke with sitter at bedside this AM after rounds. Pt has been appropriate; no outburst this AM. ASSURANCE ASSOCIATE/Sitter was able to assist cleaning him up and helping him shave. Pt independently ate 75% of his meal; ambulated to bathroom with a sba and was able to void and have BM. Resting comfortably in bed at this time. Care conts
--- NOTE | 2016-12-08 15:00 | NUR ---
Social Work- Readiness for D/C Data: EMR reviewed. Pt is on day 4 of hospitalization under observation. Pt discussed in multidisciplinary rounds. Pt is medically stable for d/c, awaiting placement. MELANIE placed another call to Maria C at [facility]. Maria C reports she is not able to assess pt today. Maria C is aware that this is pt's only barrier to d/c as he has met the goals necessary for d/c to [facility]. Pt is alert and communicative, appropriate for assessment. Maria C again confirms that she is not able to do the assessment today. Maria C is agreeable to assessment tomorrow morning. RN, MD and UR RN notified. MELANIE continues to follow. Assessment: Pt who is not capable of self-care who is awaiting placement at [facility]. Plan: Pt awaiting placement at [facility] pending bedside assessment. Maria C, security attendant at [facility], to assess patient tomorrow morning. MELANIE will continue to follow. ALICIA Padgett
--- NOTE | 2016-12-08 15:52 | NUR ---
NUTRITION ASSESSMENT: ASSESS: 71 YO male admitted for delirium. Pt continues to have confusion and agitation per notes. Pt has refused most meals now x 4 days but did eat fairly well at breakfast today so hopefully po intake will start improving. PMHx: CAD s/p CABG, AAA, hyperlipidemia, HTN, progressive dementia, hypercholesterolemia, Expressive aphasia, PVD, GERD. LABS: Reviewed. Alb 4.1 MEDS: Reviewed. GI: No BM reported since admit. CURRENT WT: 88.6 kg. DIET: General. PO intake refusal of most meals but has eaten 50-75% of 2 meals recently. EST. NEEDS: 2070-1102 kcals (25-30 kcals/kg BW), 90-105 g protein (1.0-1.2 g/kg BW) NUTRITION DIAGNOSIS: 1.) Inadequate oral intake related to decreased ability to consume sufficient energy as evidenced by current PO intake of 0-75% of meals x 4 days. NUTRITION INTERVENTION: 1.) Will add ensure to all trays to encourage increased po intake. 2.) If po intake remains inadequate, consider adding supplements between meals. MONITOR / EVAL: PO intake, labs, nutritional status. Follow per moderate nutritional risk guidelines.
--- NOTE | 2016-12-08 16:50 | PCM.PNMED ---
Subjective Date of Service Dec 08, 2016 Subjective patient calm today,taken off restraint last night .follows commands intermittently and mumbles Exam Vital Signs Vital Sign - Last Date Time Temp Pulse Resp B/P Pulse Ox O2 Delivery O2 Flow Rate FiO2 12/08/16 12:57 37.1 58 18 115/67 92 Room Air 12/07/16 20:34 2.00 Intake and Output 12/07/16 12/07/16 12/08/16 Cumulative From/Thru 15:00 23:00 07:00 12/04/16 13:56 - 12/08/16 06:30 Intake Total 100 ml 513 ml 1363 ml Output Total 452 ml 2642 ml Balance 100 ml 61 ml -1279 ml Intake Oral 100 ml 513 ml 1363 ml IV Total 0 ml 0 ml Output Urine Total 452 ml 2642 ml # Voids 2 1 8 # Bowel Movements 0 0 0 Exam Constitutional: Well-developed, well-nourished. Not diaphoretic. Head: Normocephalic and atraumatic. Eyes: Pupils are equal, round, and reactive to light. Neck: Supple, no tracheal deviation. Cardiovascular: Normal rate, regular rhythm. Equal and intact distal pulses throughout. Pulmonary/Chest: Effort normal and breath sounds normal. No respiratory distress. Abdominal: Soft. No distension. There is no tenderness, rebound, or guarding. Bowel sounds present. Musculoskeletal: Range of motion grossly intact, moving all extremities. No edema or tenderness appreciated. Neurological: Alert. Grossly nonfocal exam. Strength and sensation seems intact and equal to bilateral upper and lower extremities. Normal gait Psychiatric: Confused aggressive and agitated. Requiring restraints IVs and Medications Medications Reviewed: Medications were reviewed in detail Lab and Diagnostics Result Diagram: 12/05/1661912/05/16 06 X-Rays, CTs and MRIs CT BRAIN WITHOUT CONTRAST IMPRESSION: No acute intracranial abnormality. Approved by: Shaggy Steel M.D. on 12/04/2016 at 15:09 X-RAY CHEST ONE VIEW, PORTABLE IMPRESSION: No acute pulmonary process. Right apex is obscured as above. Dictated by: Maryana Gurrola M.D. on 12/04/2016 at 14:27 Assessment & Plan Mr. Niall De La Rosa is a 71-year-old male with a past medical history of CAD, AAA, hyperlipidemia, and HTN, progressive dementia and recent increase in aggressive activity at home, presenting to the ED after being found wandering [email or web address] drive and brought in by the [employer] Multi Sensor Operator after concerned that he would be an imminent threat to himself or others. arrived to the ED shortly after his arrival and states that he is at his baseline with respect to his neurologic status and slurred speech. Patient was admitted as an inpatient for delirium and failure to thrive. # Acute Delirium with underlying dementia with agitation,likely 2nd to progressive unspecified Dementia, present on admission. Active. - Not likely metabolic encephalopathy, normal labs, etoh negative. - Son states his father has been having progressive dementia for the last 5 years which worsened in the last [address] - [address] brain as above. - CXR as above. - IV/IM Ativan 2mg Q4H prn mild to moderate anxiety/agitation, Haldol 1-5mg Q2H PRN severe anxiety/agitation. - started Seroquel 25 mg BID, spoke with and son and discussed prons and cons including FDA warning of increased risk of mortality . consented to use haldol and seroquel to control behavior . [facility] dementia center will not take patient if he is on restraint . taken off restraint 12/07 night .lowered seroquel 25 bid to 12.5 am and 25 hs .may need to consider to lower dose further outpatient - at home on Exelon patch. discontinued due to bradycardia due to combination of exelon and metoprolol - Lela working with SW to place patient at [facility] # Coronary Artery Disease. - Continue home Aspirin 81 mg daily. - Continue home Sub lingual nitro prn chest pain. - Holding home [place]-3 1000mg daily. # Hypertension - Continue home Losartan 25 mg daily. - Continue home Metoprolol succinate 50 mg daily. XR switched to tartarate as we had to give crushed meds during agitated state and XR meds not to be crushed # Hyperlipidemia - Continue home Rosuvastain 20 mg daily. - Continue home Niacin 2000 Mg HS. # Depression. - Continue home # History of spasms. - Holding home Methocarbamol 750 mg prn. # GERD - Continue home Lansoprazole. Acetaminophen for mild pain when necessary. Bowel regimen Senna and MiraLAX scheduled and PRN. Zofran when necessary for nausea and vomiting. SubQ heparin held for now. SCDs in place. High-risk medications: IV/IM Haldol IV/IM Ativan Patient Status: Patient is admitted under observation status Lela working with SW to place patient at [facility]. Personnel from [facility] came and saw patient .asked us to take off restraint and manage medically Possible discharge tomorrow once [facility] personel come to do bed side sharri noonan discussed goals of care with DPOA Lela De La Rosa ,she signed POLST form DNR/DNI VTE Mechanical Devices: Intermittant Pneumatic CD Resuscitation Status: DNR/DNI:Do Not Resuscitate/Intubate Oswaldo Harris MD Dec 08, 2016 16:50
[2016-12-08] MEDS: Haloperidol 5 mg/mL Inj IVPUSH PRN (17:05)
--- NOTE | 2016-12-08 18:00 | NUR ---
Agitation- Patient became agitated and starting to strike out at staff when getting him into the bathroom. He was unable to follow directions and needed 3 people to guide him back from bathroom. He continued to be agitated and grabbing and pulling at staff. Haldol 5mg IV given.Patient assisted back to chair. He has calmed down and is cooperative. Taking diet and fluids. Sitter at bedside.
[2016-12-08] MEDS: Niacin SR 500 mg ER12 Tablet PO SCH (20:39)
[2016-12-09] VITALS (8 sets, daily range): BP systolic 124–133; BP diastolic 67–80; PULSE 48–82; RESP 16–18; O2SAT 92–95
--- NOTE | 2016-12-09 00:02 | NUR ---
Restlessness Pt continued to be very restless, trying to get out of bed. Able to walk to BR to void with 2 max assist, does not follow directions well. Took all of his evening PO meds including quetiapine without improvement in restlessness. IV ativan given, pt able to sleep. Sitter remains in attendance for safety and to protect lines.
[2016-12-09] MEDS: Lansoprazole 30 mg ODTablet PO SCH (08:30)
[2016-12-09] MEDS: Omega-3-Acid Ethyl Esters 1 Gm Capsule PO SCH (08:30)
--- NOTE | 2016-12-09 10:26 | PCM.PNMED ---
Subjective Date of Service Dec 09, 2016 Subjective Patient seen and examined. Alert, not oriented. vitals noted. Exam Vital Signs Vital Sign - Last Date Time Temp Pulse Resp B/P Pulse Ox O2 Delivery O2 Flow Rate FiO2 12/09/16 07:48 36.1 56 18 127/79 93 Room Air 12/07/16 20:34 2.00 Intake and Output 12/08/16 12/08/16 12/09/16 Cumulative From/Thru 15:00 23:00 07:00 12/04/16 13:56 - 12/09/16 06:53 Intake Total 1480 ml 100 ml 2943 ml Output Total 200 ml 100 ml 2942 ml Balance 1280 ml 0 ml 1 ml Intake Oral 1480 ml 100 ml 2943 ml IV Total 0 ml Output Urine Total 200 ml 100 ml 2942 ml # Voids 1 9 # Bowel Movements 1 0 1 Exam Constitutional: Well-developed, well-nourished. Not diaphoretic. Head: Normocephalic and atraumatic. Eyes: Pupils are equal, round, and reactive to light. Neck: Supple, no tracheal deviation. Cardiovascular: Normal rate, regular rhythm. Equal and intact distal pulses throughout. Pulmonary/Chest: Effort normal and breath sounds normal. No respiratory distress. Lab and Diagnostics Result Diagram: 12/05/1661912/05/16619 X-Rays, CTs and MRIs CT BRAIN WITHOUT CONTRAST IMPRESSION: No acute intracranial abnormality. Approved by: Shaggy Steel M.D. on 12/04/2016 at 15:09 X-RAY CHEST ONE VIEW, PORTABLE IMPRESSION: No acute pulmonary process. Right apex is obscured as above. Dictated by: Maryana Gurrola M.D. on 12/04/2016 at 14:27 Assessment & Plan Mr. Niall De La Rosa is a 71-year-old male with a past medical history of CAD, AAA, hyperlipidemia, and HTN, progressive dementia and recent increase in aggressive activity at home, presenting to the ED after being found wandering [address] and brought in by the Iv Therapy Nurse after concerned that he would be an imminent threat to himself or others. arrived to the ED shortly after his arrival and states that he is at his baseline with respect to his neurologic status and slurred speech. Patient was admitted as an inpatient for delirium and failure to thrive. # Acute Delirium with underlying dementia with agitation,likely 2nd to progressive unspecified Dementia, present on admission. Active. - Not likely metabolic encephalopathy, normal labs, etoh negative. - Son states his father has been having progressive dementia for the last 5 years which worsened in the last [address] - [address] brain as above. - CXR as above. - IV/IM Ativan 2mg Q4H prn mild to moderate anxiety/agitation, Haldol 1-5mg Q2H PRN severe anxiety/agitation. - started Seroquel 25 mg BID, spoke with and son and discussed prons and cons including FDA warning of increased risk of mortality . consented to use haldol and seroquel to control behavior . [facility] dementia center will not take patient if he is on restraint . taken off restraint 12/07 night .lowered seroquel to 12.5 BID - at home on Exelon patch. discontinued due to bradycardia due to combination of exelon and metoprolol - Lela working with to place patient at [facility] # Coronary Artery Disease. - Continue home Aspirin 81 mg daily. - Continue home Sub lingual nitro prn chest pain. - Holding home [place]-3 1000mg daily. # Hypertension - Continue home Losartan 25 mg daily. - Continue home Metoprolol succinate 50 mg daily. XR switched to tartarate as we had to give crushed meds during agitated state and XR meds not to be crushed # Hyperlipidemia - Continue home Rosuvastain 20 mg daily. - Continue home Niacin 2000 Mg HS. # Depression. - Continue home # History of spasms. - Holding home Methocarbamol 750 mg prn. # GERD - Continue home Lansoprazole. Acetaminophen for mild pain when necessary. Bowel regimen Senna and MiraLAX scheduled and PRN. Zofran when necessary for nausea and vomiting. SubQ heparin held for now. SCDs in place. High-risk medications: IV/IM Haldol IV/IM Ativan Patient Status: Patient is admitted under observation status Dispo: Working on placement. VTE Mechanical Devices: Intermittant Pneumatic CD Resuscitation Status: DNR/DNI:Do Not Resuscitate/Intubate Time spent 35 mins Joseph Coronado MD Dec 09, 2016 10:26
--- NOTE | 2016-12-09 13:01 | NUR ---
Social Work- Update Note Maria C from [facility] is on her way to assess patient at this time. Malinda Laird MSW
--- NOTE | 2016-12-09 17:32 | NUR ---
Medication Refusal, Bradycardia, Mentation Patient refused many morning medications, hospitalist made aware. Patient sinus bradycardia, as low as 47 per manager monitoring. Hospitalist made aware, no new orders received at this time. As of this time, patient not combative towards staff this shift. Patient not oriented, but occasionally able to follow simple commands or answer simple questions. Patient did require frequent reorientation while ambulating in [place], with the patient attempting to walk out exit of [place]. Patient was able to be coaxed into room with staff help. Patient intermittently pulling off tele leads. Care is ongoing.
--- NOTE | 2016-12-09 17:37 | NUR ---
Social Work- Continued D/C Planning Data: EMR reviewed. Pt is on day 5 of hospitalization under observation status for delirium, failure to thrive per H&P. Pt discussed in multidisciplinary rounds, pt is medically stable for d/c, awaiting placement. Pt's agitation continues to be a concern, HIGH SCHOOL PRINCIPAL discussed with potential Psych consult strictly for medication management. MD agreeable to this, consulting Psych. Maria C, tag stringer, from [facility] assessed pt today and does not feel that pt's behavior, agitation, and medications are optimized and managed well enough for [facility]. Maria C will not be able to assess pt again until Wednesday. HIGH SCHOOL PRINCIPAL spoke with pt's Lela regarding placement and discharge planning. Discussed goals and priorities related to placement, including goodness of fit and stability. Discussed resources, including pt's comprehensive LTC plan through [facility]. Shared Senior Resource Guide with pt's and discussed different memory care facilities in the area including [facility], [facility], and [facility] in [place]. Pt's is uncertain about [place] as it is difficult for pt's son's to visit. Pt's is agreeable to investigating [facility] and [facility]. Pt's agreeable to HIGH SCHOOL PRINCIPAL faxing clinicals to facilitate placement. Pt's agrees to call facilities tomorrow and potentially tour. T/C to Isis at [facility] regarding availability of bed and potential referral. Isis agreeable, clinicals faxed. Isis will review pt and await 's call tomorrow morning. T/C to Yisel and Tatyana at [facility] regarding availability of bed and potential referral. Both agreeable, clinicals faxed for Tatyana to review. Tatyana will review pt and await 's call tomorrow morning. Pt continues to have sitter at bedside. SW will continue to follow and facilitate placement. Assessment: Pt who requires placement. Plan: Psych consult requested. HIGH SCHOOL PRINCIPAL faxed clinicals to [facility] for review. Pt's to call and tour tomorrow. [facility] will reassess pt on Wednesday if placement is not found. All agreeable to plan, SW will continue to follow. ALICIA Padgett
[2016-12-09] MEDS: Niacin SR 500 mg ER12 Tablet PO SCH ×2 (20:52→21:00)
[2016-12-09] MEDS: Haloperidol 5 mg/mL Inj IVPUSH PRN (22:49)
--- NOTE | 2016-12-09 23:50 | NUR ---
Restraints Pt placed in soft restraints on both upper extremities as he was being very combative and aggressive, attempting to injure the sitter, climbing out of bed, swinging punches at every staff member nearby. At 2119 pt got out of bed, 2 staff members attempted to assist him to the BR but he became combative and aggressive, very unsteady on his feet, at high risk of falling. Al kilgore called to get him back into bed safely; pt responded very well to security officers, patted their badges and cooperated with them. No IV access at that time, allowed one time IM shot of Ativan for agitation. Pt was relaxed for about one hour and IV access was reestablished. Then pt became extremely aggressive and combative again, officer came and calmed him down some but pt continued to attempt to punch and hit. Haldol given via IV, restraints applied at 2255 for ongoing safety. Pt fell asleep, restraints in place for future safety. Sitter remains at beside.
[2016-12-10] VITALS (8 sets, daily range): BP systolic 108–152; BP diastolic 68–85; PULSE 66–97; RESP 15–20; O2SAT 93–96
--- NOTE | 2016-12-10 05:12 | NUR ---
Behavior / restraints Pt has been sleeping since shortly after restraints applied; however, will leave them in place until he is awake and exhibiting safe, non-combative behavior. As pt has been medically stable, will not complete deferred assessment related to agitation. Sitter remains at bedside.
--- NOTE | 2016-12-10 08:53 | PCM.PNMED ---
Subjective Date of Service Dec 10, 2016 Subjective Patient seen and examined. Sound asleep. Was agitated last night needing four point restraints with IV sedatives. Vitals stable. Exam Vital Signs Vital Sign - Last Date Time Temp Pulse Resp B/P Pulse Ox O2 Delivery O2 Flow Rate FiO2 12/10/16 08:42 69 12/10/16 06:25 36.6 20 94 Room Air 12/09/16 20:22 127/80 12/07/16 20:34 2.00 Intake and Output 12/09/16 12/09/16 12/10/16 Cumulative From/Thru 15:00 23:00 07:00 12/04/16 13:56 - 12/10/16 06:25 Intake Total 700 ml 10 ml 3653 ml Output Total 1125 ml 0 ml 4067 ml Balance -425 ml 10 ml -414 ml Intake Oral 700 ml 10 ml 3653 ml IV Total 0 ml Output Urine Total 1125 ml 0 ml 4067 ml # Voids 9 # Bowel Movements 1 0 2 Exam Constitutional: Well-developed, well-nourished. Not diaphoretic. Head: Normocephalic and atraumatic. Eyes: Pupils are equal, round, and reactive to light. Neck: Supple, no tracheal deviation. Cardiovascular: Normal rate, regular rhythm. Equal and intact distal pulses throughout. Pulmonary/Chest: Effort normal and breath sounds normal. No respiratory distress. Lab and Diagnostics Result Diagram: 12/05/16 0620 12/05/16 0620 X-Rays, CTs and MRIs CT BRAIN WITHOUT CONTRAST IMPRESSION: No acute intracranial abnormality. Approved by: Shaggy Steel M.D. on 12/04/2016 at 15:09 X-RAY CHEST ONE VIEW, PORTABLE IMPRESSION: No acute pulmonary process. Right apex is obscured as above. Dictated by: Maryana Gurrola M.D. on 12/04/2016 at 14:27 Assessment & Plan Mr. Niall De La Rosa is a 71-year-old male with a past medical history of CAD, AAA, hyperlipidemia, and HTN, progressive dementia and recent increase in aggressive activity at home, presenting to the ED after being found wandering [address] and brought in by the High Wire Artist after concerned that he would be an imminent threat to himself or others. arrived to the ED shortly after his arrival and states that he is at his baseline with respect to his neurologic status and slurred speech. Patient was admitted as an inpatient for delirium and failure to thrive. # Acute Delirium with underlying dementia with agitation,likely 2nd to progressive unspecified Dementia, present on admission. Active. - Not likely metabolic encephalopathy, normal labs, etoh negative. - Son states his father has been having progressive dementia for the last 5 years which worsened in the last [address] brain as above. - CXR as above. - IV/IM Ativan 2mg Q4H prn mild to moderate anxiety/agitation, Haldol 1-5mg Q2H PRN severe anxiety/agitation. - started Seroquel 25 mg BID, spoke with and son and discussed prons and cons including FDA warning of increased risk of mortality . consented to use haldol and seroquel to control behavior . [facility] dementia center will not take patient if he is on restraint . taken off restraint 12/07 night .lowered seroquel to 12.5 BID - at home on Exelon patch. discontinued due to bradycardia due to combination of exelon and metoprolol - will get psych consult to help with med management # Coronary Artery Disease. - Continue home Aspirin 81 mg daily. - Continue home Sub lingual nitro prn chest pain. # Hypertension - Continue home Losartan 25 mg daily. - metoprolol dc'd # Hyperlipidemia - Continue home Rosuvastain 20 mg daily. - Continue home Niacin 2000 Mg HS. # Depression. - Continue home meds # History of spasms. - continue home Methocarbamol 750 mg prn. # GERD - Continue home Lansoprazole. Acetaminophen for mild pain when necessary. Bowel regimen Senna and MiraLAX scheduled and PRN. Zofran when necessary for nausea and vomiting. SubQ heparin held for now. SCDs in place. High-risk medications: IV/IM Haldol IV/IM Ativan Patient Status: Patient is admitted under observation status Dispo: Working on placement. VTE Mechanical Devices: Intermittant Pneumatic CD Resuscitation Status: DNR/DNI:Do Not Resuscitate/Intubate Time spent 35 mins Joseph Coronado MD Dec 10, 2016 08:53
[2016-12-10] MEDS: Lansoprazole 30 mg ODTablet PO SCH (11:37)
[2016-12-10] MEDS: Omega-3-Acid Ethyl Esters 1 Gm Capsule PO SCH (11:37)
--- NOTE | 2016-12-10 11:41 | NUR ---
Restraints/AM meds Pt sleeping very soundly, behavior appropriate. Restraints dc/d at 0910. Woke pt at 1130 to give AM meds, very sleepy still, follows directions, but not opening eyes. 1:[address], continue to monitor.
--- NOTE | 2016-12-10 14:20 | NUR ---
Social Work- Continued D/C Planning Data: EMR reviewed. Pt is on day 6 of hospitalization under observation status for delirium, failure to thrive per H&P. Pt discussed in multidisciplinary rounds, pt is medically stable for d/c, awaiting placement. Pt had a difficult night last night, require restraints. Restraints were d/c this morning, however sitter remains at bedside. Psychiatry has been consulted for medication management. SW met with pt's at the hospital regarding d/c plan. Pt's has spoken to [facility] and is touring their facility today. feels that it would be a good match if pt is accepted. Pt will have to be assessed prior to admission. SW placed call to Isis, [employer] Worker, awaiting return call. Pt's proposed that home caregivers be explored. SW discussed agencies vs. private caregivers and the difference between them. Pt's chose three companies from the Senior Resource Guide and requested that DEPUTY CORONER INVESTIGATOR place calls to coordinate meetings. SW placed call to 1) [facility] (which does not service pt's home area), 2) [facility] and 3) [facility]. SW connected [facility] and [facility] to pt's and meetings are scheduled at 2 and 3 pm between companies, pt, and pt's . Assessment: Pt who requires placement or / in home care Plan: Psych consult pending. SW awaiting return call from Isis at [facility]. Pt's meeting with in-home care providers today. [facility] will reassess pt on Wednesday if placement is not found. All agreeable to plan, SW will continue to follow. ALICIA Padgett
[2016-12-10] MEDS: risperiDONE 1 mg Tablet PO SCH (21:18)
[2016-12-10] MEDS: Niacin SR 500 mg ER12 Tablet PO SCH (21:19)
--- NOTE | 2016-12-10 23:52 | CONS ---
[address] [address] CONSULTATION REPORT PATIENT: RENETTA BLACK : 1945 MR#: [id number] ADMIT: 12/04/2016 JOB ID: [id number] DATE OF SERVICE: INPATIENT PSYCHIATRIC CONSULTATION: REFERRING PHYSICIAN: Joseph Coronado MD. IDENTIFYING DATA: The patient is a 71-year-old male with a history of major neurocognitive disorder, coronary artery disease, abdominal aortic aneurysm, hyperlipidemia and hypertension, who has had worsening aggressive activity in the home and presented to the emergency department after being found wandering [address] and was brought in by the searchlight operator after concerns regarding threat to himself or others. CHIEF COMPLAINT: The patient is unarousable, but according to family members has expressive aphasia and it is difficult to understand anything spoken. HISTORY OF PRESENT ILLNESS: According to documents and the patient's , she reported that in the emergency department he was at neurological baseline with slurred speech. She did report that he had been having waxing and waning aggression over the last several days prior to admission. She believes that she cannot care for him any longer. According to notes, he has been uncooperative with staff, aggressive, and has been unresponsive to verbal redirection. He has received haloperidol, lorazepam and diphenhydramine. The patient's reports that following these medications today he has been sleeping and difficult to arouse. According to the patient's , the patient had a coronary artery bypass graft x3 in 2009 and began having a gradual decline; example, he changed the oil in the car and then forgot to replace the oil, ruining the engine. He also had a gradual decrease in function and began to experience expressive aphasia. He was seen by Dr. Francois and placed on rivastigmine. They returned to the [facility] eight years ago and moved to [facility] last month in order to be closer to a more urban setting in case he needed a memory care facility. She reported that he started doing escape behaviors and this resulted in his wandering onto [address]. She reports that previously he has reported believing that others are in the house and thinking he could hear the neighbors talk when they were quite some distance away. He has also been treated with fluoxetine for depression for the last 16 years. She is unaware of any manic or panic symptoms. PAST PSYCHIATRIC HISTORY: He has been treated with fluoxetine for depression for the last 16 years and has been provided this medication by Dr. Nguyễn. There is no history of inpatient psychiatric hospitalization. There is a family psychiatric history of a father in his late 70s or early 80s developing dementia. There is no known suicide attempt history. PAST MEDICAL HISTORY: 1. The patient had a CABG x3 as noted above in August 2009. 2. Hypercholesterolemia. 3. Expressive aphasia. 4. Peripheral vascular disease. 5. History of AAA. 6. History of GERD. 7. Hyperlipidemia. 8. Hypertension. 9. He is also status post cardiac catheterization. 10. Reportedly retinal detachment repair, although the denies this is true or has no recollection of it. 11. He also had a partial knee replacement last April. OUTPATIENT MEDICATIONS: Include: 1. Aspirin. 2. Fluoxetine. 3. Lansoprazole. 4. Losartan. 5. Metoprolol. 6. Niacin. 7. [place]-3 fish oil. 8. Potassium. 9. Rivastigmine patch. 10. Rosuvastatin. 11. Calcium. 12. Methocarbamol. 13. Nitroglycerin. While hospitalized he has received haloperidol 5 mg IV push, lorazepam 2 mg IV up to q.2 h., and was receiving earlier quetiapine 25 mg twice daily which was reduced to 12.5 mg twice daily. SUBSTANCE USE: The patient has occasional alcohol and has no history of drug use. SOCIAL HISTORY: The patient has an 11th grade education and a GED. He was in the [employer] and discharged honorably. 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 He has been three times and twice, and has been to his current for 16 years. There are two children from outside the marriage and they are both in their 30s. His is 61 and retired, is a retired lead producer. She retired in 2007. MENTAL STATUS EXAMINATION: Appearance: The patient was adequately dressed and groomed, lying in bed. Behavior: He was unable to be aroused calling his name or shaking his leg. The remainder of the mental status exam could not be completed due to lack of cooperation. IMPRESSION: The patient is a 71-year-old male with a history of progressing neurocognitive disorder who has been treated with rivastigmine. The patient's behavior has gradually worsened recently and he has began wandering from the home and was becoming aggressive in the hospital. The patient also appears to have been experiencing a combination of auditory hallucinations and paranoia. The risks of using antipsychotics in individuals with dementia were discussed with his , including increased risk of stroke, as well as the potential for tardive dyskinesia and metabolic syndrome, and she agreed to continue. The patient's excessive sedation is likely due to the higher doses of haloperidol and should IV haloperidol be used it should be limited to 1-2 mg. Likewise, the patient has received a fair amount of lorazepam in the last several days which can cause disinhibition. The sedation from quetiapine may also be problematic and he may respond better to a high potency neuroleptic such as risperidone. The patient currently is on fluoxetine 40 mg a day and this could be potentially causing agitation, although it is unclear at this time. DIAGNOSES: Major neurocognitive disorder, depression, unspecified by history, see past medical history. RECOMMENDATIONS: 1. Discontinue quetiapine, lorazepam and haloperidol. 2. Risperidone 0.5 mg nightly and 0.5 mg twice daily for severe agitation. 3. Should the patient require IV, would recommend haloperidol 1-2 mg IV q.6 h. p.r.n. 4. Lorazepam 0.5 mg IV q.4 h. p.r.n. anxiety or agitation. 5. If patient stabilizes on the above combination would recommend potentially reducing fluoxetine to 20 mg daily given age and neurocognitive decline. 6. Would recommend follow up with his outpatient neurology provider. 7. Please feel free to contact Psychiatry should you have any further questions. MTDD
[2016-12-11] VITALS (8 sets, daily range): BP systolic 108–157; BP diastolic 71–85; PULSE 61–122; RESP 17–20; O2SAT 90–97
--- NOTE | 2016-12-11 05:42 | NUR ---
Behavior Pt was lightly drowsy and pleasant and the beginning of this shift. No s/s of pain noted. No acute resp distress and/or SOB noted. 1:1 throughout this shift. Around 2200 pt observed with some behavioral issue of restless, agitation and trying to climb out of bed. This Ln and two NACs talked to pt and bring to calmness w/out punching or hitting anyone and 0.25ml of ativan administered with good effect. 1:1 sitter continues, pt check and change, inct and repositioned every two hours and as tolerated. Slept for few hours and around 0500, sitter called this LN and said pt is getting restless and pt said he is seeing things. Upoon LN assessment, pt was restless, agitated, didn't try to get out of bed but fidgety and sweaty. Pt afebrile and ativan 0.25ml administered. At this current moment, pt resting calmly in bed, sitter at bedside and call light w/in reach. Care continues.
[2016-12-11] MEDS: Omega-3-Acid Ethyl Esters 1 Gm Capsule PO SCH (08:30)
--- NOTE | 2016-12-11 08:34 | PCM.PNMED ---
Subjective Date of Service Dec 11, 2016 Subjective Patient seen and examined. Alert, not oriented. Vitals noted. Exam Vital Signs Vital Sign - Last Date Time Temp Pulse Resp B/P Pulse Ox O2 Delivery O2 Flow Rate FiO2 12/11/16 05:54 110 12/11/16 04:38 36.8 20 120/85 94 Room Air 12/07/16 20:34 2.00 Intake and Output 12/10/16 12/10/16 12/11/16 Cumulative From/Thru 15:00 23:00 07:00 12/04/16 13:56 - 12/11/16 05:09 Intake Total 137 ml 200 ml 3990 ml Output Total 4067 ml Balance 137 ml 200 ml -77 ml Intake Oral 137 ml 200 ml 3990 ml IV Total 0 ml Output Urine Total 4067 ml # Voids 2 1 12 # Bowel Movements 0 0 2 Exam Constitutional: Well-developed, well-nourished. Not diaphoretic. Head: Normocephalic and atraumatic. Eyes: Pupils are equal, round, and reactive to light. Neck: Supple, no tracheal deviation. Cardiovascular: Normal rate, regular rhythm. Equal and intact distal pulses throughout. Pulmonary/Chest: Effort normal and breath sounds normal. No respiratory distress. Lab and Diagnostics Result Diagram: 12/05/1661912/05/16 06 X-Rays, CTs and MRIs CT BRAIN WITHOUT CONTRAST IMPRESSION: No acute intracranial abnormality. Approved by: Shaggy Steel M.D. on 12/04/2016 at 15:09 X-RAY CHEST ONE VIEW, PORTABLE IMPRESSION: No acute pulmonary process. Right apex is obscured as above. Dictated by: Maryana Gurrola M.D. on 12/04/2016 at 14:27 Assessment & Plan Mr. Niall De La Rosa is a 71-year-old male with a past medical history of CAD, AAA, hyperlipidemia, and HTN, progressive dementia and recent increase in aggressive activity at home, presenting to the ED after being found wandering [address] and brought in by the Crisis Nurse after concerned that he would be an imminent threat to himself or others. arrived to the ED shortly after his arrival and states that he is at his baseline with respect to his neurologic status and slurred speech. Patient was admitted as an inpatient for delirium and failure to thrive. # Acute Delirium with underlying dementia with agitation,likely 2nd to progressive unspecified Dementia, present on admission. Active. - Not likely metabolic encephalopathy, normal labs, etoh negative. - Son states his father has been having progressive dementia for the last 5 years which worsened in the last [address] - [address] brain as above. - CXR as above. - Psycho consulted, recs appreciated: . # Risperidone 0.5 mg nightly and 0.5 mg twice daily for severe agitation. # Should the patient require IV, would recommend haloperidol 1-2 mg IV q.6 h. p.r.n. # Lorazepam 0.5 mg IV q.4 h. p.r.n. anxiety or agitation. # If patient stabilizes on the above combination would recommend potentially reducing fluoxetine to 20 mg daily given age and neurocognitive decline. # Tachycardia - metoprolol dc'd when patient went into jose j with metoprolol 12.5 bid, he was also receiving seroquel with ativan and haledol - HR upto 110s, will restart metoprolol 12.5 bid, since lots of sedatives have been taken off. # Coronary Artery Disease. - Continue home Aspirin 81 mg daily. - Continue home Sub lingual nitro prn chest pain. # Hypertension - Continue home Losartan 25 mg daily. - metoprolol dc'd # Hyperlipidemia - Continue home Rosuvastain 20 mg daily. - Continue home Niacin 2000 Mg HS. # Depression. - Continue home meds # History of spasms. - continue home Methocarbamol 750 mg prn. # GERD - Continue home Lansoprazole. Acetaminophen for mild pain when necessary. Bowel regimen Senna and MiraLAX scheduled and PRN. Zofran when necessary for nausea and vomiting. SubQ heparin held for now. SCDs in place. Patient Status: Patient is admitted under observation status Dispo: Working on placement. VTE Mechanical Devices: Intermittant Pneumatic CD Resuscitation Status: DNR/DNI:Do Not Resuscitate/Intubate Time spent 35 mins Joseph Coronado MD Dec 11, 2016 08:34
[2016-12-11] MEDS ORDERED: Haloperidol 5 mg/mL Inj IVPUSH ONE (09:15)
[2016-12-11] MEDS: risperiDONE 1 mg Tablet PO PRN (09:17)
[2016-12-11] MEDS: Lansoprazole 30 mg ODTablet PO SCH ×2 (09:18→10:55)
--- NOTE | 2016-12-11 15:29 | NUR ---
Tele Pt had 5 beats vtach per classroom monitor. notified. New orders received. Metoprolol po given. Pt currently sinus tach with occasional PVCs. Will continue to monitor.
--- NOTE | 2016-12-11 15:58 | NUR ---
NUTRITION FOLLOW UP ASSESS: 71 YO male admitted for delirium. Pt seen by psych noted to have major neurocognitive disorder, medication recommendations made, remains alert but not oriented. Pt continues with minimal po intake of bites-25% x 3-4d PMHx: CAD s/p CABG, AAA, hyperlipidemia, HTN, progressive dementia, hypercholesterolemia, Expressive aphasia, PVD, GERD. LABS: Reviewed. Alb 4.1 (no new labs since 12/05) MEDS: Reviewed. GI: 1 BM 12/09 CURRENT WT: 84.6 kg. Admit: 91.0kg : WT LOSS of 6.4kg x 1wk DIET: General. PO bites-25% EST. NEEDS: 0993-6310 kcals (25-30 kcals/kg BW), 90-105 g protein (1.0-1.2 g/kg BW) NUTRITION DIAGNOSIS: 1.) Inadequate oral intake related to decreased ability to consume sufficient energy as evidenced by current PO intake of average ~15-25% x 7days, weight loss 6.4kg x 1week. NUTRITION INTERVENTION: 1.) Continue with supplements, will add snacks between meals, promote adequate kcal/protein intake. 2.) Consider nutrition support, ?eval from ST with pt decreased po intake. MONITOR / EVAL: PO intake, labs, nutritional status. Follow per high nutritional risk guidelines.
--- NOTE | 2016-12-11 16:06 | NUR ---
Social Work: Continued Discharge Planning/Multidisciplinary Rounds D: EMR reviewed. Pt is on day 7 of hospitalization/ Pt discussed in multidisciplinary rounds, pt is medically stable for discharge pending placement. Pt had a difficult night last night, required restraints and has a 1:1. Restraints were discharged this morning, however sitter remains at bedside. Psychiatry has been consulted for medication management. T/C from pt's spouse regarding placement. Pt's spouse stated she doesn't want to rule out [facility] at this time. She prefers [place] and would only choose [facility] as a back-up option. SW discussed private caregivers - spouse states she met with Lilian Issa and determined 24/7 care would cost more than [facility] or [facility]. Spouse stated her first preference is [place]. Spouse stated that she met with pt today and thinks pt is too tired/somnolent for an assessment at this time. SW discussed pt's appropriateness for bedside assessment during multidisciplinary rounds. Per medical team, pt is not appropriate for bedside assessment at this time. T/C from Boat Hoist Operator Isis Mnédez at [facility]. Isis wanted to know pt's status and discharge timeline. SW confirmed that pt is not appropriate for bedside assessment at this time. Isis confirmed bedside assessments can only be done Wednesday - Wednesday and that she will follow-up with SW on Wednesday to determine pt's readiness for bedside assessment. Assessment: Pt who requires placement or 24/7 in-home care P: Psych saw pt and adjusted medications. Pt not appropriate for bedside assessment for placement at [facility] at this time. Pt's spouse has ruled-out private pay caregivers due to cost. Pt's spouse first choice/preference is [facility], second is [facility]. SW to follow-up with [facility] Wednesday regarding pt's readiness for bedside assessment. Pt continues to have 1:1 sitter. SW to follow-up with spouse on Wednesday regarding progress with discharge plan (e.g. readiness for bedside assessment). SW will continue to follow. ALICIA Diaz
--- NOTE | 2016-12-11 17:34 | NUR ---
Activity Pt able to ambulate apx 3/4 of a half loop on the unit. Tolerated well. 2 person assist as he is confused about how to use the walker. Takes cues from his son very well. Will encourage ambulation as a way to decrease agitation. Care continues.
[2016-12-11] MEDS: risperiDONE 1 mg Tablet PO SCH (20:56)
[2016-12-11] MEDS: Niacin SR 500 mg ER12 Tablet PO SCH (20:56)
[2016-12-12] VITALS (8 sets, daily range): BP systolic 95–125; BP diastolic 57–74; PULSE 54–90; RESP 16–18; O2SAT 92–95
--- NOTE | 2016-12-12 05:02 | NUR ---
General Pt alert and responsive, non combative and smiled a bit upon assessment. No s/s of pain noted. No acute resp distress and/or SOB noted. Some restlessness and agitation noted on this shift. Attempted to climbed out of bed, Ativan admin x1 with some relief and pt response well to calm approach and safe reassurance. 1:1 sitter continues. Will continue to monitor.
--- NOTE | 2016-12-12 05:06 | NUR ---
GI Pt c/o nausea at the beginning of this shift. PRN Phenergan IV drip admin x1 with great relief. No further episode of nausea reported. Pt slept well this shift. No report of pain. Will continue to monitor.
[2016-12-12] MEDS: Omega-3-Acid Ethyl Esters 1 Gm Capsule PO SCH (08:30)
--- NOTE | 2016-12-12 08:44 | PCM.PNMED ---
Subjective Date of Service Dec 12, 2016 Subjective Patient seen and examined. Lying in bed. Calm. Vitals noted. Exam Vital Signs Vital Sign - Last Date Time Temp Pulse Resp B/P Pulse Ox O2 Delivery O2 Flow Rate FiO2 12/12/16 06:02 90 12/12/16 05:12 36.5 18 102/57 93 Room Air 12/07/16 20:34 2.00 Intake and Output 12/11/16 12/11/16 12/12/16 Cumulative From/Thru 15:00 23:00 07:00 12/04/16 13:56 - 12/12/16 06:32 Intake Total 300 ml 100 ml 4390 ml Output Total 4067 ml Balance 300 ml 100 ml 323 ml Intake Oral 300 ml 100 ml 4390 ml IV Total 0 ml 0 ml Output Urine Total 4067 ml # Voids 1 2 15 # Bowel Movements 2 Exam Constitutional: Well-developed, well-nourished. Not diaphoretic. Head: Normocephalic and atraumatic. Eyes: Pupils are equal, round, and reactive to light. Neck: Supple, no tracheal deviation. Cardiovascular: Normal rate, regular rhythm. Equal and intact distal pulses throughout. Pulmonary/Chest: Effort normal and breath sounds normal. No respiratory distress. Lab and Diagnostics X-Rays, CTs and MRIs CT BRAIN WITHOUT CONTRAST IMPRESSION: No acute intracranial abnormality. Approved by: Shaggy Steel M.D. on 12/04/2016 at 15:09 X-RAY CHEST ONE VIEW, PORTABLE IMPRESSION: No acute pulmonary process. Right apex is obscured as above. Dictated by: Maryana Gurrola M.D. on 12/04/2016 at 14:27 Assessment & Plan Mr. Niall De La Rosa is a 71-year-old male with a past medical history of CAD, AAA, hyperlipidemia, and HTN, progressive dementia and recent increase in aggressive activity at home, presenting to the ED after being found wandering [address] and brought in by the High Man after concerned that he would be an imminent threat to himself or others. arrived to the ED shortly after his arrival and states that he is at his baseline with respect to his neurologic status and slurred speech. Patient was admitted as an inpatient for delirium and failure to thrive. # Acute Delirium with underlying dementia with agitation,likely 2nd to progressive unspecified Dementia, present on admission. Active. - Not likely metabolic encephalopathy, normal labs, etoh negative. - Son states his father has been having progressive dementia for the last 5 years which worsened in the last [address] brain as above. - CXR as above. - Psycho consulted, recs appreciated: . # Risperidone 0.5 mg nightly and 0.5 mg twice daily for severe agitation. ( preferred) # Should the patient require IV, would recommend haloperidol 1-2 mg IV q.6 h. p.r.n. # Lorazepam 0.5 mg IV q.4 h. p.r.n. anxiety or agitation. (3rd choice) # If patient stabilizes on the above combination would recommend potentially reducing fluoxetine to 20 mg daily given age and neurocognitive decline. # Tachycardia - metoprolol dc'd when patient went into jose j with metoprolol 12.5 bid, he was also receiving seroquel with ativan and haledol - HR upto 110s, will restart metoprolol 12.5 bid, since lots of sedatives have been taken off. # Coronary Artery Disease. - Continue home Aspirin 81 mg daily. - Continue home Sub lingual nitro prn chest pain. # Hypertension - Continue home Losartan 25 mg daily. - metoprolol dc'd # Hyperlipidemia - Continue home Rosuvastain 20 mg daily. - Continue home Niacin 2000 Mg HS. # Depression. - Continue home meds # History of spasms. - continue home Methocarbamol 750 mg prn. # GERD - Continue home Lansoprazole. Acetaminophen for mild pain when necessary. Bowel regimen Senna and MiraLAX scheduled and PRN. Zofran when necessary for nausea and vomiting. SubQ heparin held for now. SCDs in place. Patient Status: Patient is admitted under observation status Dispo: Working on placement. VTE Mechanical Devices: Intermittant Pneumatic CD Resuscitation Status: DNR/DNI:Do Not Resuscitate/Intubate Time spent 35 mins Joseph Coronado MD Dec 12, 2016 08:44
[2016-12-12] MEDS: risperiDONE 1 mg Tablet PO PRN ×2 (10:45→18:20)
[2016-12-12] MEDS: Lansoprazole 30 mg ODTablet PO SCH (10:45)
--- NOTE | 2016-12-12 15:53 | NUR ---
Activity Pt up to BRP as needed with 1-2PA with FWW, requiring frequent cueing. Pt with minimal verbal responses - tends to repeat what you say. Sitting upright in bed smiling. Pt sleeping after morning medications given. Gave dose Risperdal as pt getting restless just prior to getting up to BR. at bedside this afternoon. After nap, pt again to BR and sitting up in recliner chair. remains at bedside. Sitter remains present - posted outside. No issues thus far. Care continues.
[2016-12-12] MEDS: Niacin SR 500 mg ER12 Tablet PO SCH (21:00)
[2016-12-12] MEDS: risperiDONE 1 mg Tablet PO SCH (21:42)
[2016-12-13] VITALS (8 sets, daily range): BP systolic 92–128; BP diastolic 59–74; PULSE 52–80; RESP 16–19; O2SAT 94–99
--- NOTE | 2016-12-13 02:52 | NUR ---
Behavior/BP/Meds/ Pharmacy Behavior/Meds:At beginning of shift patient was agitated and was trying to crawl out of bed as well as swing his arms and legs at sitter. .5mg Ativan given IVP, and upon reassessment patient had calmed down. Evening medications attempted to be given in applesauce, but patient would spit out the medication, and started to get agitated. BP: Patients BP was 95/59. MD aware of BP and medication non-compliance; no new orders at this time. Currently patient is sleeping and appears comfortable, sitter is in the room. Will continue to monitor and continue Q1 hour checks. Pharm: Per pharmacy Niacin PO is not to be crushed since it is an ER, but can be cut in half. Addendum: 12/13/16 at 0425 by SIGRID FLEMING RN Ativan was given at beginning of shift, instead of Haldol because vial stated that it was only to be given IM, while the EMAR had ordered IV. Charge nurse consulted regarding this decision. Pharmacy contacted to clarify this discrepancy. Pharmacist states that it is OK for the Haldol to be given IVP even though it does not specifically state on the vial. Will share this with the oncoming nurse so that they are aware. Care continues.
[2016-12-13] MEDS: Lansoprazole 30 mg ODTablet PO SCH (08:30)
[2016-12-13] MEDS: Omega-3-Acid Ethyl Esters 1 Gm Capsule PO SCH (08:30)
--- NOTE | 2016-12-13 08:45 | PCM.PNMED ---
Subjective Date of Service Dec 13, 2016 Subjective Patient sitting up in chair. Smiling. Alert, but not oriented. Vitals stable. Exam Vital Signs Vital Sign - Last Date Time Temp Pulse Resp B/P Pulse Ox O2 Delivery O2 Flow Rate FiO2 12/13/16 06:21 52 12/13/16 05:15 36.2 18 100/62 96 Room Air 12/07/16 20:34 2.00 Intake and Output 12/12/16 12/12/16 12/13/16 Cumulative From/Thru 15:00 23:00 07:00 12/04/16 13:56 - 12/13/16 06:36 Intake Total 1000 ml 60 ml 5450 ml Output Total 300 ml 167 ml 4534 ml Balance 700 ml -107 ml 916 ml Intake Oral 1000 ml 60 ml 5450 ml IV Total 0 ml Output Urine Total 300 ml 167 ml 4534 ml # Voids 2 17 # Bowel Movements 1 0 3 Exam Constitutional: Well-developed, well-nourished. Not diaphoretic. Head: Normocephalic and atraumatic. Eyes: Pupils are equal, round, and reactive to light. Neck: Supple, no tracheal deviation. Cardiovascular: Normal rate, regular rhythm. Equal and intact distal pulses throughout. Pulmonary/Chest: Effort normal and breath sounds normal. No respiratory distress. Lab and Diagnostics X-Rays, CTs and MRIs CT BRAIN WITHOUT CONTRAST IMPRESSION: No acute intracranial abnormality. Approved by: Shaggy Steel M.D. on 12/04/2016 at 15:09 X-RAY CHEST ONE VIEW, PORTABLE IMPRESSION: No acute pulmonary process. Right apex is obscured as above. Dictated by: Maryana Gurrola M.D. on 12/04/2016 at 14:27 Assessment & Plan Mr. Niall De La Rosa is a 71-year-old male with a past medical history of CAD, AAA, hyperlipidemia, and HTN, progressive dementia and recent increase in aggressive activity at home, presenting to the ED after being found wandering [address] and brought in by the Resin Painter after concerned that he would be an imminent threat to himself or others. arrived to the ED shortly after his arrival and states that he is at his baseline with respect to his neurologic status and slurred speech. Patient was admitted as an inpatient for delirium and failure to thrive. # Acute Delirium with underlying dementia with agitation,likely 2nd to progressive unspecified Dementia, present on admission. Active. - Not likely metabolic encephalopathy, normal labs, etoh negative. - Son states his father has been having progressive dementia for the last 5 years which worsened in the last [address] brain as above. - CXR as above. - Psycho consulted, recs appreciated: . # Risperidone 0.5 mg nightly and 0.5 mg twice daily for severe agitation. ( preferred) # Should the patient require IV, would recommend haloperidol 1-2 mg IV q.6 h. p.r.n. # Lorazepam 0.5 mg IV q.4 h. p.r.n. anxiety or agitation. (3rd choice) # If patient stabilizes on the above combination would recommend potentially reducing fluoxetine to 20 mg daily given age and neurocognitive decline. # Tachycardia - metoprolol dc'd when patient went into jose j with metoprolol 12.5 bid, he was also receiving seroquel with ativan and haledol - HR upto 110s, will restart metoprolol 12.5 bid, since lots of sedatives have been taken off. # Coronary Artery Disease. - Continue home Aspirin 81 mg daily. - Continue home Sub lingual nitro prn chest pain. # Hypertension - Continue home Losartan 25 mg daily. - metoprolol dc'd # Hyperlipidemia - Continue home Rosuvastain 20 mg daily. - Continue home Niacin 2000 Mg HS. # Depression. - Continue home meds # History of spasms. - continue home Methocarbamol 750 mg prn. # GERD - Continue home Lansoprazole. Acetaminophen for mild pain when necessary. Bowel regimen Senna and MiraLAX scheduled and PRN. Zofran when necessary for nausea and vomiting. SubQ heparin held for now. SCDs in place. Patient Status: Patient is admitted under observation status Dispo: Working on placement. VTE Mechanical Devices: Intermittant Pneumatic CD Resuscitation Status: DNR/DNI:Do Not Resuscitate/Intubate Joseph Coronado MD Dec 13, 2016 08:45
[2016-12-13] MEDS: Haloperidol 5 mg/mL Inj IVPUSH PRN ×3 (10:23→16:41)
--- NOTE | 2016-12-13 11:22 | NUR ---
Patients spouse at the bedside, provided nail care to the patient. Addendum: 12/13/16 at 1122 by MAXIM DURBIN CNA Amended: Links added.
[2016-12-13] MEDS: risperiDONE 1 mg Tablet PO PRN ×2 (12:27→18:08)
--- NOTE | 2016-12-13 12:27 | NUR ---
ACTIVITY Pt pleasant and calm, anxious up and down OOB to BR. Refused morning medications. Talkative, mumbled but carrying on conversation with self - talked on the phone with his who encouraged him to take his medications. Medications crushed and mixed with applesauce. Pt refusing to take bite, attempted to distract pt and even placed in drawer to give pt time and reattempt medications administration. Pt refused. Attempted to mix with vanilla pudding, again refused. Eventually, medications disintegrated and liquid-like. Medication drawn up into syringe and attempted to admin that way, pt spit medications out. Medications were then not saved in [facility] and were later documented as Nonadminstered. Pt still trying to get OOB. Will be trying to get out and then the next calm. Pt received IV Haldol after refusing PO Risperdal. Sitter remains in place. Care continues.
--- NOTE | 2016-12-13 18:31 | NUR ---
Restlessness Patient climbing out of bed decided he did not want to go back in so decided to just sit down so patient eased down onto a pillow and a few minutes later was cooperative with staff. Patient helped back to bed and is currently resting
[2016-12-13] MEDS: Niacin SR 500 mg ER12 Tablet PO SCH (21:00)
[2016-12-13] MEDS: risperiDONE 1 mg Tablet PO SCH (21:00)
[2016-12-14 00:05] VITALS: BP 121/57; PULSE 75; RESP 16; O2SAT 93
[2016-12-14] MEDS: Haloperidol 5 mg/mL Inj IVPUSH PRN ×2 (01:08→18:48)
--- NOTE | 2016-12-14 04:01 | NUR ---
Medication Administration At 2030 when evening medications were due, patient was resting and appeared comfortable. Night hospitalist contacted regarding med times, and stated that it would be ok to give medications later in the shift once the patient woke up, so that he could continue to rest. At approx 0000 medication administration was attempted, but patient was unable to follow any commands, and spit out the medication. Shortly after patient became restless, upset, and agitated. 2mg Haldol IVP was given and patient was able to calm down. Patient is currently sleeping and appears comfortable. Sitter is in the room. Will continue to monitor and continue Q1 hour checks.
[2016-12-14 07:01] VITALS: BP 161/81; PULSE 69; RESP 16; O2SAT 93
[2016-12-14] MEDS: risperiDONE 1 mg Tablet PO PRN ×2 (08:23→17:50)
[2016-12-14] MEDS: Lansoprazole 30 mg ODTablet PO SCH (08:25)
[2016-12-14] MEDS: Omega-3-Acid Ethyl Esters 1 Gm Capsule PO SCH (08:30)
--- NOTE | 2016-12-14 08:52 | PCM.PNMED ---
Subjective Date of Service Dec 14, 2016 Subjective Patient is doing much better. Sitting up, eating. Alert, but not oriented. Vitals noted. Exam Vital Signs Vital Sign - Last Date Time Temp Pulse Resp B/P Pulse Ox O2 Delivery O2 Flow Rate FiO2 12/14/16 07:01 36.9 69 16 161/81 93 Room Air Intake and Output 12/13/16 12/13/16 12/14/16 Cumulative From/Thru 15:00 23:00 07:00 12/04/16 13:56 - 12/14/16 06:24 Intake Total 1136 ml 275 ml 6861 ml Output Total 850 ml 450 ml 5834 ml Balance 286 ml -175 ml 1027 ml Intake Oral 1136 ml 275 ml 6861 ml IV Total 0 ml Output Urine Total 850 ml 450 ml 5834 ml # Voids 17 # Bowel Movements 1 4 Exam Constitutional: Well-developed, well-nourished. Not diaphoretic. Head: Normocephalic and atraumatic. Eyes: Pupils are equal, round, and reactive to light. Neck: Supple, no tracheal deviation. Cardiovascular: Normal rate, regular rhythm. Equal and intact distal pulses throughout. Pulmonary/Chest: Effort normal and breath sounds normal. No respiratory distress. Lab and Diagnostics X-Rays, CTs and MRIs CT BRAIN WITHOUT CONTRAST IMPRESSION: No acute intracranial abnormality. Approved by: Shaggy Steel M.D. on 12/04/2016 at 15:09 X-RAY CHEST ONE VIEW, PORTABLE IMPRESSION: No acute pulmonary process. Right apex is obscured as above. Dictated by: Maryana Gurrola M.D. on 12/04/2016 at 14:27 Assessment & Plan Mr. Niall De La Rosa is a 71-year-old male with a past medical history of CAD, AAA, hyperlipidemia, and HTN, progressive dementia and recent increase in aggressive activity at home, presenting to the ED after being found wandering [address] and brought in by the [employer]ulator after concerned that he would be an imminent threat to himself or others. arrived to the ED shortly after his arrival and states that he is at his baseline with respect to his neurologic status and slurred speech. Patient was admitted as an inpatient for delirium and failure to thrive. # Acute Delirium with underlying dementia with agitation,likely 2nd to progressive unspecified Dementia, present on admission. Active. - Not likely metabolic encephalopathy, normal labs, etoh negative. - Son states his father has been having progressive dementia for the last 5 years which worsened in the last [address] brain as above. - CXR as above. - Psycho consulted, recs appreciated: . # Risperidone 0.5 mg nightly and 0.5 mg twice daily for severe agitation. ( preferred) # Should the patient require IV, would recommend haloperidol 1-2 mg IV q.6 h. p.r.n. # Lorazepam 0.5 mg IV q.4 h. p.r.n. anxiety or agitation. (3rd choice) # If patient stabilizes on the above combination would recommend potentially reducing fluoxetine to 20 mg daily given age and neurocognitive decline. # Tachycardia - metoprolol dc'd when patient went into jose j with metoprolol 12.5 bid, he was also receiving seroquel with ativan and haledol - HR upto 110s, will restart metoprolol 12.5 bid, since lots of sedatives have been taken off. # Coronary Artery Disease. - Continue home Aspirin 81 mg daily. - Continue home Sub lingual nitro prn chest pain. # Hypertension - Continue home Losartan 25 mg daily. - metoprolol dc'd # Hyperlipidemia - Continue home Rosuvastain 20 mg daily. - Continue home Niacin 2000 Mg HS. # Depression. - Continue home meds # History of spasms. - continue home Methocarbamol 750 mg prn. # GERD - Continue home Lansoprazole. Acetaminophen for mild pain when necessary. Bowel regimen Senna and MiraLAX scheduled and PRN. Zofran when necessary for nausea and vomiting. SubQ heparin held for now. SCDs in place. Patient Status: Patient is admitted under observation status Dispo: Working on placement. VTE Mechanical Devices: Intermittant Pneumatic CD Resuscitation Status: DNR/DNI:Do Not Resuscitate/Intubate Time spent 35 mins Joseph Coronado MD Dec 14, 2016 08:52
--- NOTE | 2016-12-14 09:26 | NUR ---
Behavior Pt alert and fidgeting in bed, pleasant though. Smiling and clapping his hands while sitter/CLERICAL DENTIST ASSISTANT at bedside talking to him. Pt assisted 1-2PA to chair for breakfast. Requiring redirection, but muscle strength present and did follow commands to sit down in chair. Hand-eye coordination seems improved in comparison to previous day. Continues to have issue with holding utensils. Using hands to eat breakfast sandwich and potatoes. Took medications this AM without issue, minus his uncrushed EC Aspirin. Spoke with re: possibly changing aspirin to chewable tablet. Pt continues to be pleasant, just received shave from CLERICAL DENTIST ASSISTANT, tolerated without issue. Care continues.
[2016-12-14 10:28] VITALS: PULSE 83
[2016-12-14 12:27] VITALS: BP 94/60; PULSE 70; RESP 18; O2SAT 96
--- NOTE | 2016-12-14 12:54 | NUR ---
Mobility Pt up to ambulate hallway 3 times this shift with and 1-2 staff assisting. Tends to drift, but holds hands with his or puts his arm around her and steadies gait. Gait belt in place; INTEGRATED CIRCUIT LAYOUT DESIGNER performing CGA. Pt wanting to be able to walk alone with his and mildly irritated that he had a staff person at his other side. Pt ambulated ~3.5 loops around hallway. Required redirection upon return to the room. At this time at 1310, pt in bed and sleepy. at bedside and Sitter present. Care continues.
--- NOTE | 2016-12-14 13:09 | NUR ---
PT NOTE-- Patient up amb'ing with nrsg assist. No PT eval needed per MD at [facility] rounds.
[2016-12-14 17:00] VITALS: BP 109/69; PULSE 78; RESP 18; O2SAT 97
--- NOTE | 2016-12-14 17:07 | NUR ---
Social Work: Continued Discharge Planning/Multidisciplinary Rounds D: EMR reviewed. Pt is on day 10 of hospitalization. Pt discussed in multidisciplinary rounds and is medically stable for discharge to a memory care facility. SW met with spouse at bedside and per conversation, requesting Isis Méndez, Trust Vault Clerk, at [facility] to assess pt. Isis agreed to meet with pt and spouse at 1500 today for assessment. T/C from Isis regarding assessment: Isis stated that pt was up ambulating - not re-directable on command - eyes set on moving but nothing to stop him. Isis stated that due to pt's level of need/care pt will require higher staffing ratio than [facility] can provide at this time. Isis spoke with pt's spouse and recommended [facility]. Isis called [facility] to help referral process. Pt's spouse left to visit [facility]. Per Isis, [facility] has a room available at this time for pt but will need to work with spouse and do assessment to determine if they can assist with level of care necessary for pt. Isis stated that if [facility] doesn't work out, [facility] will reconsider - Isis requested SW to call her directly if this is the case - cell [phone]. Assessment: Pt who requires placement or 24/7 in-home care P: SW to follow-up with spouse and [facility] regarding placement/assessment tomorrow. SW to follow up with Isis if [facility] is not an option. Isis stated that if [facility] doesn't work out, [facility] will reconsider - Isis requested SW to call her directly if this is the case - cell [phone]. ALICIA Diaz
--- NOTE | 2016-12-14 19:24 | NUR ---
Al Stevenson At 1830, pt up ambulating with CENTER PUNCH OPERATOR/Sitter. Can become fixated on something and is stubborn to change his mind. Pt up to room 1001 and insisting on going into the room (his room is 1024). This RN was in with another pt and was called and instructed to come to the front of the unit. Al Stevenson called in case of possible aggressive movements. Pt heard yelling (making loud groans) and wanting to continue going into the wrong room. Otherwise pt remained calm. After ~10minutes of trying to get the pt to walk back to his room, staffing was able to get him into bed. PRN IVP Haldol given. While administering dose, pt tearful and upset. Wiping his eyes and mumbling (unable to make out clear words) and even folded his hands as though he was praying. Phone call to Lela to try and calm patient. Pt seeming happy to hear 's voice on the phone. Laying in bed. 3 rails up. Sitter at bedside. Care continues.
[2016-12-14] MEDS: risperiDONE 1 mg Tablet PO SCH (20:35)
[2016-12-14] MEDS: Niacin SR 500 mg ER12 Tablet PO SCH (20:35)
[2016-12-14 20:48] VITALS: BP 126/81; PULSE 80; RESP 18; O2SAT 93
--- NOTE | 2016-12-15 05:48 | NUR ---
Agitation / sleep Pt continued to be restless and agitated for first several hours of shift, ambulated again in hallway but did not resist return to own room. Became agitated again when receiving HS medications, refused to take all of them. Ativan given for agitation, pt able to sleep rest of night. Sitter d/c'd; bed alarm on for safety. Frequent rounding ongoing, staff near room as often as feasible.
[2016-12-15 06:06] VITALS: BP 120/75; PULSE 69; RESP 16; O2SAT 96
--- NOTE | 2016-12-15 08:38 | NUR ---
Social Work: Continued Discharge Planning/Multidisciplinary Rounds D: EMR reviewed. Pt is on day 11 of hospitalization. Received T/C from pt's Lela De La Rosa. Discussed [facility]. Pt's declined assessment [facility] at this time. Toured [facility] yesterday and she prefers that facility at this time. SW agreed to make referral and coordinate bedside assessment. Discussed that pt's memory care options in [facility] are limited and we are running out of options. If pt is not accepted at any facility then [facility] should be re-contacted for re-assessment. If [facility] is still unable to accept pt at that time then other [facility] should be explored, including [place]. Pt's aware. T/C to [facility] regarding referral and bedside assessment. Bedside ditch cleaner unavailable for conversation at time of call, requested return call after review of clinicals to coordinate assessment. RISK CONTROL ANALYST requested to fax clinicals to [facility] this AM. SW will continue to follow. Assessment: Pt who requires placement or 09/11 in-home care P: Pt's clinicals faxed to [facility] for consideration. Pt's spouse prefers [facility] at this time. SW awaiting return call from [facility] regarding assessment. SW will continue to follow. ALICIA Padgett Addendum: 12/15/16 at 1039 by KELSIE SILVERIO SS Discussed with pt's the importance of exploring all placement options at this time, including [facility]. T/C to Denise at [facility] regarding beside assessment. Denise is agreeable to assessing pt today at 11:30 am. Clinicals faxed to [phone]. Pt's updated and agreeable. Malinda Silverio MSW
--- NOTE | 2016-12-15 09:11 | NUR ---
POST HOSPITAL FOLLOW UP: Faxed clinicals to [facility] per [facility] [employer]
[2016-12-15] MEDS: risperiDONE 1 mg Tablet PO PRN (10:19)
[2016-12-15] MEDS: Omega-3-Acid Ethyl Esters 1 Gm Capsule PO SCH (10:29)
[2016-12-15] MEDS: Lansoprazole 30 mg ODTablet PO SCH (10:36)
--- NOTE | 2016-12-15 11:08 | NUR ---
NUTRITION FOLLOW UP: ASSESS: 71 YO male admitted for delirium. Pt seen by psych noted to have major neurocognitive disorder, medication recommendations made. Pt po intake has improved over the past 48 hours with pt eating 50-100% of meals. PMHx: CAD s/p CABG, AAA, hyperlipidemia, HTN, progressive dementia, hypercholesterolemia, Expressive aphasia, PVD, GERD. LABS: Reviewed. MEDS: Reviewed. GI: BM x 1 (12/13) CURRENT WT: 83.6 kg. Admit: 91.0 kg : WT LOSS of 7.4 kg (8.1%) x 11 days DIET: General, Ensure all trays, snacks between meals. PO 50-100% x 48 hours. EST. NEEDS: 6066-3943 kcals (25-30 kcals/kg BW), 90-105 g protein (1.0-1.2 g/kg BW) NUTRITION DIAGNOSIS: 1.) Inadequate oral intake related to decreased ability to consume sufficient energy as evidenced by current PO intake of average ~15-25% x 7 days, weight loss since admit--IMPROVING, PO 50-100% of meals x 48 hours. NUTRITION INTERVENTION: 1.) Continue to send ensure all trays and snacks TID between meals to promote adequate kcal/protein intake. MONITOR / EVAL: PO intake, labs, nutritional status. Follow per high nutritional risk guidelines.
--- NOTE | 2016-12-15 11:25 | PCM.PNMED ---
Subjective Date of Service Dec 15, 2016 Subjective Patient seen and examined. Smiling sitting on chair. Not agitated. Vitals noted Exam Vital Signs Vital Sign - Last Date Time Temp Pulse Resp B/P Pulse Ox O2 Delivery O2 Flow Rate FiO2 12/15/16 06:06 36.6 69 16 120/75 96 Room Air Intake and Output 12/14/16 12/14/16 12/15/16 Cumulative From/Thru 15:00 23:00 07:00 12/04/16 13:56 - 12/15/16 06:05 Intake Total 2262 ml 0 ml 9123 ml Output Total 270 ml 6104 ml Balance 1992 ml 0 ml 3019 ml Intake Oral 2262 ml 0 ml 9123 ml IV Total 0 ml Output Urine Total 270 ml 6104 ml # Voids 2 19 # Bowel Movements 0 4 Exam Constitutional: Well-developed, well-nourished. Not diaphoretic. Head: Normocephalic and atraumatic. Eyes: Pupils are equal, round, and reactive to light. Neck: Supple, no tracheal deviation. Cardiovascular: Normal rate, regular rhythm. Equal and intact distal pulses throughout. Pulmonary/Chest: Effort normal and breath sounds normal. No respiratory distress. Lab and Diagnostics X-Rays, CTs and MRIs CT BRAIN WITHOUT CONTRAST IMPRESSION: No acute intracranial abnormality. Approved by: Shaggy Steel M.D. on 12/04/2016 at 15:09 X-RAY CHEST ONE VIEW, PORTABLE IMPRESSION: No acute pulmonary process. Right apex is obscured as above. Dictated by: Maryana Gurrola M.D. on 12/04/2016 at 14:27 Assessment & Plan Mr. Niall De La Rosa is a 71-year-old male with a past medical history of CAD, AAA, hyperlipidemia, and HTN, progressive dementia and recent increase in aggressive activity at home, presenting to the ED after being found wandering [address] and brought in by the Powder Carrier after concerned that he would be an imminent threat to himself or others. arrived to the ED shortly after his arrival and states that he is at his baseline with respect to his neurologic status and slurred speech. Patient was admitted as an inpatient for delirium and failure to thrive. # Acute Delirium with underlying dementia with agitation,likely 2nd to progressive unspecified Dementia, present on admission. Active. - Not likely metabolic encephalopathy, normal labs, etoh negative. - Son states his father has been having progressive dementia for the last 5 years which worsened in the last [address] brain as above. - CXR as above. - Psycho consulted, recs appreciated: . # Risperidone 0.5 mg nightly and 0.5 mg twice daily for severe agitation. ( preferred) # Should the patient require IV, would recommend haloperidol 1-2 mg IV q.6 h. p.r.n. # Lorazepam 0.5 mg IV q.4 h. p.r.n. anxiety or agitation. (3rd choice) # If patient stabilizes on the above combination would recommend potentially reducing fluoxetine to 20 mg daily given age and neurocognitive decline. - will change Risperidone from bedtime to with dinner, as patient tends to be agitated mostly at around 17:00 # Tachycardia, resolved - metoprolol dc'd when patient went into jose j with metoprolol 12.5 bid, he was also receiving seroquel with ativan and haledol - HR upto 110s, on metoprolol 12.5 bid # Coronary Artery Disease. - Continue home Aspirin 81 mg daily. - Continue home Sub lingual nitro prn chest pain. # Hypertension - Continue home Losartan 25 mg daily. - metoprolol dc'd # Hyperlipidemia - Continue home Rosuvastain 20 mg daily. - Continue home Niacin 2000 Mg HS. # Depression. - Continue home meds # History of spasms. - continue home Methocarbamol 750 mg prn. # GERD - Continue home Lansoprazole. Acetaminophen for mild pain when necessary. Bowel regimen Senna and MiraLAX scheduled and PRN. Zofran when necessary for nausea and vomiting. SubQ heparin held for now. SCDs in place. Patient Status: Patient is admitted under observation status Dispo: Working on placement. VTE Mechanical Devices: Intermittant Pneumatic CD Resuscitation Status: DNR/DNI:Do Not Resuscitate/Intubate Time spent 35 mins Joseph Coronado MD Dec 15, 2016 11:25
--- NOTE | 2016-12-15 13:45 | NUR ---
Social Work: Update Per Denise Smiley, Senior Telephone Exchange Operator at [facility], [facility] is able to accept pt at this time. [facility] is going to assess pt this afternoon around 3 pm. SW updated at bedside. understands that if [facility] is not able to accept pt then pt will have to d/c to [facility] as they have a bed and they are able to meet pt's needs. Pt's understands possibility of HIN in the future. Pt's agreeable to d/c to [facility] if [facility] is not able to accept pt. MELANIE will continue to follow. ALICIA Padgett Addendum: 12/15/16 at 1650 by KELSIE SILVERIO SS Spoke to Mallorie FINCH, fish and game club manager from [facility], at 1630 and she was not assigned to evaluate this patient. T/C to Cassandra at [facility] regarding assessment delay, Cassandra states that Susi, director of memory care, will be evaluating pt tonight but not until 1730. Pt's updated of delay and is agreeable to assessment tonight. ALICIA Padgett
[2016-12-15 14:10] VITALS: BP 109/81; PULSE 70; RESP 16; O2SAT 96
[2016-12-15] MEDS ORDERED: risperiDONE 1 mg Tablet PO SCH (17:30)
--- NOTE | 2016-12-15 19:55 | NUR ---
Mood/Activity Pt. given a.m. PRN respirdol per MD orders at 1000. Pt. has remained absolutely calm and relaxed today. He has had a very good appetite, and has remained cooperative with sitter and health care team. Pts. was in the room for most of the afternoon. He was able to take almost all morning meds, and evening respirdol dose as well.
[2016-12-15] MEDS: Haloperidol 5 mg/mL Inj IVPUSH PRN (20:00)
[2016-12-15] MEDS: Niacin SR 500 mg ER12 Tablet PO SCH (21:00)
[2016-12-15 22:15] VITALS: BP 117/72; PULSE 75; RESP 20; O2SAT 98
--- NOTE | 2016-12-15 23:00 | NUR ---
AGITATION Patient was up to use the toilet, became agitated with following directions and refused to return to bed. Became quite agitated and pushed his way into the hallway. Al kilgore called to get patient back into his room. Haldol IV was administered to help with agitation. Patient was able to get back in bed with some help from staff. However, he continued with agitation and restlessness, attempting to exit the bed and struggle with his 1:1 sitter. Ativan administered for ongoing agitation. Patient became more manageable but continued with restlessness. Patient finally able to fall asleep and appears to be resting comfortably at this time. Sitter remains at the bedside.
--- NOTE | 2016-12-16 03:36 | NUR ---
Assumed Care Received report and assumed patient care at approx 2320. Upon initial assessment patient was sleeping, and did not appear to be in any distress; No S/S of CP or SOB. Sitter in the room. Patient is currently sleeping and appears comfortable. Will continue to monitor and continue Q1 hour checks. Addendum: 12/16/16 at 0414 by SIGRID FLEMING RN At approx 0340 patient became more restless. 2mg Haldol IVP given. Care continues
[2016-12-16] MEDS: Haloperidol 5 mg/mL Inj IVPUSH PRN (03:45)
[2016-12-16] MEDS: Omega-3-Acid Ethyl Esters 1 Gm Capsule PO SCH (08:30)
[2016-12-16] MEDS: Lansoprazole 30 mg ODTablet PO SCH (10:41)
--- NOTE | 2016-12-16 11:51 | NUR ---
Social Work: Readiness for Discharge/Multidisciplinary Rounds D: EMR reviewed. Pt is on day 12 of hospitalization. Pt discussed in rounds, pt is medically stable for discharge. Pt has been accepted at , will discharge today after completion of orders. Emily reportedly assessed pt last night, is unable to accept pt at this time. is the only accepting facility at this time. Spoke with pt's Lela regarding obligation to d/c pt to accepting facility. Lela upset but understanding. T/T Yisel at regarding admission. Admission orders have been faxed over, provided to MD. NAVARRO awaiting completion of orders. Assessment: Pt who requires memory care placement P: is only accepting facility at this time. updated and agreeable to d/c plan. Admission orders have been faxed over, provided to MD. NAVARRO awaiting completion of orders. MELANIE will continue to follow. ALICIA Padgett
[2016-12-16 13:43] VITALS: BP 104/71; PULSE 69; RESP 20; O2SAT 96
[2016-12-16] MEDS ORDERED: RISP1TAB90 PO ×2 (14:07→15:33)
[2016-12-16] MEDS ORDERED: METO25TA6 PO (14:07)
--- NOTE | 2016-12-16 14:10 | PCM.DIMED ---
Discharge Instructions Date of Service Dec 16, 2016 Dates of Hospitalization Dec 04, 2016 at 15:44 Discharge Diagnosis Discharge Diagnosis Acute Delirium with underlying dementia with agitation,likely 2nd to progressive unspecified Dementia, present on admission HTN HLP GERD Diet Discharge Diet: Heart Healthy Patient Instructions Follow-up with PCP in: 1 week Carlos Rodríguez MD Dec 16, 2016 14:10
--- NOTE | 2016-12-16 14:33 | NUR ---
Social Work: Discharge D: EMR reviewed. Pt is on day 12 of hospitalization. Doctor has completed admission orders for [facility]. T/C to Denise Smiley regarding pt's discharge. Denise coordinated wheelchair van transportation for 1530, pt to be picked up in his room. Denise confirms receipt of admission orders. Lela and pt updated at bedside regarding discharge plan and transportation. RN updated as well. All updated and agreeable to plan. No additional d/c needs. Assessment: Pt who requires memory care placement P: Pt to discharge to [facility] via their wheelchair van at 1530. Orders are complete and have been faxed. Pt, , UC, and RN all updated and agreeable to plan. No additional d/c planning needs. Malinda Laird MSW
--- NOTE | 2016-12-16 15:42 | NUR ---
Discharge Pt d/c'd to [facility] room 1024 @ [id number]. IV d/c'd intact. All discharge instructions done with at bedside. All questions and concerns addressed. Pt's requested prescription for prn medication for agitation. notified. Pt dressed and ready to go with and 1:1 sitter. Pt got agitated waiting for the ride as he didn't understand why he could not leave. Pt redirected and ride came. and 1:1 helped pt into the ride. All hard copy of RX with . No items in the safe or pharmacy.
--- NOTE | 2016-12-16 16:49 | PCM.DC.MED ---
Discharge Summary Date of Service Dec 16, 2016 Dates of Hospitalization Date of Hospital Admission Dec 04, 2016 at 15:44 Date of Discharge: Dec 16, 2016 Providers: Admitting Physician: Oswaldo Harris MD Primary Care Physician: Lennox Nguyễn MD Attending Physician: Carlos Rodríguez MD Diagnosis at Time of Discharge Diagnosis at Time of Discharge Acute Delirium with underlying dementia with agitation,likely 2nd to progressive unspecified Dementia, present on admission HTN HLP GERD Procedures XRay, CTs & MRIs CT BRAIN WITHOUT CONTRAST IMPRESSION: No acute intracranial abnormality. Approved by: Shaggy Steel M.D. on 12/04/2016 at 15:09 X-RAY CHEST ONE VIEW, PORTABLE IMPRESSION: No acute pulmonary process. Right apex is obscured as above. Dictated by: Maryana Gurrola M.D. on 12/04/2016 at 14:27 Hospital Course Mr. Niall De La Rosa is a 71-year-old male with a past medical history of CAD, AAA, hyperlipidemia, and HTN, progressive dementia and recent increase in aggressive activity at home, presented to the ED after being found wandering [address] and brought in by the L[employer] Grinding Machine Operator after concerned that he would be an imminent threat to himself or others. arrived to the ED shortly after his arrival and stated that he is at his baseline with respect to his neurologic status and slurred speech. She reported however he has been having some waxing and waning aggression and altered mental status over the past several days. She could not care for him any longer. Upon his arrival, he was not cooperative with staff, aggressive, and despite extensive verbal de- escalation, the patient required Haldol, Ativan, and Benadryl. He responded well to this. Family asked to find a placement for the patient. Head CT negative for acute abnormality. Chest x-ray with no evidence of a pneumonia. No notable lab abnormalities aside from CBC (with the exception of platelets of 109) blood alcohol negative; urinalysis pending at this time. Patient was treated in the hospital with Resperidal. CM/SW found a placement for him. Psychiatry was consulted and recommended Risperidone by mouth scheduled and PRN. After patient improved he was discharged to the facility in good condition. Unfortunately he will have intermittent episodes of agitation. Family agreed to continue with antipsychotic medications, family was aware about possible side effects and risks involved. Patient was seen and examined the day of discharge TIME SPENT IN DISCHARGE ACTIVITY: Face to face activity greater then 30 minutes spent in discharge activity. 1. Discussed with patient re: discharge plan of care/treatment, and follow up care/services. 2. Patient agreed with discharge plan and further plan of care, all questions were answered/addressed, no further questions at the time of discharge. Exam Vital Signs (Last) Date Time Temp Pulse Resp B/P Pulse Ox O2 Delivery O2 Flow Rate FiO2 12/16/16 13:43 36.6 69 20 104/71 96 Room Air Test 12/04/16 14:23 12/05/16 06:20 12/06/16 12:35 12/06/16 13:05 Lactic Acid Level 1.4mmol/L (0.4-2.0) Alcohols < 10mg/dL (0-10) White Blood Count 4.6th/mm3 (3.8-10.1) Red Blood Count 4.43mil/mm3 (4.40-5.80) Hemoglobin 14.4g/dL (13.8-17.2) Hematocrit 40.3% (41.0-50.0) Mean Corpuscular Volume 91.0fL (81-100) Mean Corpuscular Hemoglobin 32.5pg (27.0-35.0) Mean Corpuscular Hemoglobin Concent 35.7% (32.0-37.0) Red Cell Distribution Width 13.1% (12.3-15.4) Platelet Count 93bil/L (150-400) Neutrophils (%) (Auto) 58.8% (40-74) Lymphocytes (%) (Auto) 25.4% (14-46) Monocytes (%) (Auto) 12.5% (4-12) Eosinophils (%) (Auto) 3.1% (0-5) Basophils (%) (Auto) 0.2% (0-3) Sodium Level 139mEq/L (134-144) Potassium Level 4.0mEq/L (3.5-5.2) Chloride Level 101mEq/L (97-108) Carbon Dioxide Level 27mmol/L (18-29) Blood Urea Nitrogen 12mg/dL (8-27) Creatinine 0.93mg/dL (0.76-1.27) Estimat Glomerular Filtration Rate 85mL/min (>59) Glucose Level 99mg/dL (60-99) Calcium Level 9.4mg/dL (8.5-10.1) Magnesium Level 1.9mg/dL (1.6-2.6) Total Bilirubin 1.0mg/dL (0.0-1.2) Aspartate Amino Transf (AST/SGOT) 28U/L (0-50) Alanine Aminotransferase (ALT/SGPT) 15U/L (0-44) Alkaline Phosphatase 66U/L (25-160) Total Protein 6.3g/dL (6.4-8.4) Albumin 4.1g/dL (3.4-5.0) Hold Urine Received (Received) Urine Color Yellow (YELLOW) Urine Appearance Clear (CLEAR,HAZY) Urine pH 6.0 (5.0-8.0) Urine Specific [place] 1.015 (1.003-1.035) Urine Protein Negativemg/dL (NEG,TRACE) Urine Glucose (UA) Negativemg/dL (NEGATIVE) Urine Ketones 15mg/dL (NEGATIVE) Urine Occult Blood Trace (NEGATIVE) Urine Nitrite Negative (NEGATIVE) Urine Bilirubin Negative (NEGATIVE) Urine Urobilinogen 1.0mg/dL (NORMAL) Urine Leukocyte Esterase Negative (NEGATIVE) Urine RBC 0-2/hpf (0-2) Urine WBC 0-5/hpf (0-5) Urine Epithelial Cells None/hpf (NONE-MOD) Urine Crystals None seen (NONE SEEN) Urine Bacteria None/hpf (NONE-FEW) Urine Hyaline Casts None/lpf (NONE) Urine Granular Casts None seen (NONE SEEN) Urine Waxy Casts None seen (NONE SEEN) Urine Red Blood Cell Casts None seen (NONE SEEN) Urine White Blood Cell Casts None seen (NONE SEEN) Urine Mucus None seen (None Seen) Urine Trichomonas None seen (NONE SEEN) Urine Yeast None (NONE SEEN) Urinalysis Comment None Urine Culture Reflexed Not indicated Discharge Medications Discharge Medications Aspirin (Aspirin) 81 Mg Tablet 81 MG PO DAILY (Reported) Fluoxetine (Fluoxetine) 20 Mg Tablet 40 MG PO DAILY (Reported) Lansoprazole ODT (Prevacid ODT) 30 Mg Tab.rap.dr 30 MG PO DAILY (Reported) Losartan Potassium (Losartan Potassium) 25 Mg Tablet 25 MG PO DAILY (Reported) Metoprolol Tartrate (Metoprolol Tartrate) 25 Mg Tablet 12.5 MG PO BID Prescribed by: NATHALY HERCULES MD Niacin ER (Niacin ER) 1,000 Mg Tablet 3,000 MG PO HS (Reported) [place]-3/Dha/Epa/Fish Oil (Fish Oil 1,000 mg Softgel) 1 Each Capsule 1 EACH PO DAILY (Reported) Risperidone (Risperdal) 1 Mg Tablet 0.5 MG PO DAILYWD Prescribed by: NATHALY HERCULES MD Rosuvastatin Calcium (Crestor) 20 Mg Tablet 20 MG PO DAILY (Reported) As needed Methocarbamol (Methocarbamol) 750 Mg Tablet 750 MG PO QID PRN PRN For Spasm ( Reported) Nitroglycerin SL (Nitroglycerin SL) 0.4 Mg Tab.subl 0.4 MG SL Q5MIN PRN PRN For Chest Pain (Reported) Risperidone (Risperdal) 1 Mg Tablet 0.5 MG PO BID PRN PRN Severe agitation Prescribed by: NATHALY HERCULES MD Followup Plan Discharge Diet: Heart Healthy Follow-up with PCP in: 1 week Carlos Rodríguez MD Dec 16, 2016 16:49 None seen (NONE SEEN) Urine White Blood Cell Casts None seen (NONE SEEN) Urine Mucus None seen (None Seen) Urine Trichomonas None seen (NONE SEEN) Urine Yeast None (NONE SEEN) Urinalysis Comment None Urine Culture Reflexed Not indicated Discharge Medications Discharge Medications Aspirin (Aspirin) 81 Mg Tablet 81 MG PO DAILY (Reported) Fluoxetine (Fluoxetine) 20 Mg Tablet 40 MG PO DAILY (Reported) Lansoprazole ODT (Prevacid ODT) 30 Mg Tab.rap.dr 30 MG PO DAILY (Reported) Losartan Potassium (Losartan Potassium) 25 Mg Tablet 25 MG PO DAILY (Reported) Metoprolol Tartrate (Metoprolol Tartrate) 25 Mg Tablet 12.5 MG PO BID Prescribed by: NATHALY HERCULES MD Niacin ER (Niacin ER) 1,000 Mg Tablet 3,000 MG PO HS (Reported) [place]-3/Dha/Epa/Fish Oil (Fish Oil 1,000 mg Softgel) 1 Each Capsule 1 EACH PO DAILY (Reported) Risperidone (Risperdal) 1 Mg Tablet 0.5 MG PO DAILYWD Prescribed by: NATHALY HERCULES MD Rosuvastatin Calcium (Crestor) 20 Mg Tablet 20 MG PO DAILY (Reported) As needed Methocarbamol (Methocarbamol) 750 Mg Tablet 750 MG PO QID PRN PRN For Spasm ( Reported) Nitroglycerin SL (Nitroglycerin SL) 0.4 Mg Tab.subl 0.4 MG SL Q5MIN PRN PRN For Chest Pain (Reported) Risperidone (Risperdal) 1 Mg Tablet 0.5 MG PO BID PRN PRN Severe agitation Prescribed by: NATHALY HERCULES MD Followup Plan Discharge Diet: Heart Healthy Follow-up with PCP in: 1 week Carlos Rodríguez MD Dec 16, 2016 16:49
== END 2016-12-16 15:30 ==
LOC: SED 13:04 → OSC 15:44 → INTOOBSV 15:44 → OSC 15:45
PROVIDERS: ADMIT Internal Medicine; ATTEND Internal Medicine
DX: F03.91 Unspecified dementia, unspecified severity, with behavioral disturbance (principal); F05 Delirium due to known physiological condition; Z91.83 Wandering in diseases classified elsewhere; R62.7 Adult failure to thrive; I25.10 Atherosclerotic heart disease of native coronary artery without angina pectoris; I10 Essential (primary) hypertension; F32.9 Major depressive disorder, single episode, unspecified; E78.5 Hyperlipidemia, unspecified; I73.9 Peripheral vascular disease, unspecified; K21.9 Gastro-esophageal reflux disease without esophagitis; I71.4 Abdominal aortic aneurysm, without rupture; Z87.891 Personal history of nicotine dependence; Z79.82 Long term (current) use of aspirin; Z95.1 Presence of aortocoronary bypass graft; Z66 Do not resuscitate; R00.0 Tachycardia, unspecified
CPT/HCPCS: 36415; 70450; 71010; 80053; 81000; 83605; 83735; 85025; 93005; 96372; 96374; 96375; 96376; 99285; G0378; G0480; J1200; J1630; J2060

== ENCOUNTER 2016-12-18 23:00 | Inpatient (IN) | payer MEDICARE ==
[~2016-12-18] VITALS: Ht 180.3 cm; Wt 88.6 kg
[~2016-12-18 23:00] MED LIST changes: +ASPI-973 PO; -ASPI325T32 PO; +NIAC100045 PO; -NIAC500T21 PO; +NITR0.4T38 SL; -NITR0.4T6 SL; +OMEG-38 PO; -POTA2TAB5 PO; +RISP1TAB90 PO; -RIVA1PAT9 TRANSDERM
[2016-12-18 23:05] VITALS: BP 132/71; PULSE 85; RESP 20; O2SAT 98
--- NOTE | 2016-12-18 23:07 | ED.REPORT ---
HPI-Trauma Minor / Fall Date of Service Dec 18, 2016 ED Provider: Sung West DO Pt is a demented 71 year old male with a history of HTN, hyperlipidemia, expressive aphasia, CAD, dementia, and GERD who presents to the ED via EMS for an unwitnessed ground level fall today. HPI is difficult to obtain secondary to pt's dementia. He is unable to answer questions. Nursing Notes Stated Complaint: GLF Chief Complaint: General Complaint Nursing Notes Reviewed: Yes Allergies: Coded Allergies: codeine (Verified Allergy, Unknown, 02/23/15) Scheduled Aspirin (Aspirin) 81 Mg Tablet 81 MG PO DAILY Fluoxetine (Fluoxetine) 20 Mg Tablet 40 MG PO DAILY Lansoprazole ODT (Prevacid ODT) 30 Mg Tab.rap.dr 30 MG PO DAILY Losartan Potassium (Losartan Potassium) 25 Mg Tablet 25 MG PO DAILY Metoprolol Tartrate (Metoprolol Tartrate) 25 Mg Tablet 12.5 MG PO BID Niacin ER (Niacin ER) 1,000 Mg Tablet 3,000 MG PO HS [place]-3/Dha/Epa/Fish Oil (Fish Oil 1,000 mg Softgel) 1 Each Capsule 1 EACH PO DAILY Risperidone (Risperdal) 1 Mg Tablet 0.5 MG PO DAILYWD Rosuvastatin Calcium (Crestor) 20 Mg Tablet 20 MG PO DAILY Scheduled PRN Methocarbamol (Methocarbamol) 750 Mg Tablet 750 MG PO QID PRN PRN For Spasm Nitroglycerin SL (Nitroglycerin SL) 0.4 Mg Tab.subl 0.4 MG SL Q5MIN PRN PRN For Chest Pain Risperidone (Risperdal) 1 Mg Tablet 0.5 MG PO BID PRN PRN Severe agitation General Time Seen by MD: 23:06 Chief Complaint Fall Hx Obtained From: EMS Arrived By: Ambulance Onset Occurred: Just prior to arrival Symptom Duration: Since onset Quality: Painful Severity: Current: Moderate Severity: Maximum: Moderate Recent Healthcare: Recent doctor visit Similar Sx Previous: No Past Medical History Past Medical History Notes: Patient states his chronic baseline heart rate is in the 40s. Past Medical History Coronary artery disease status post CABG for three-vessel disease in August 2009 at [facility]. Hypercholesterolemia Expressive aphasia Peripheral vascular disease history of AAA (unknown size, actively monitored by pcp) Reports: GERD, Hyperlipidemia, Hypertension Past Surgical History CABG 3 utilizing left internal mammary artery graft to left anterior descending, saphenous vein graft to the mus intermedius, radial artery graft to the right posterior descending in August 2009 Status post cardiac catheterization for possible ST segment elevation [place] - but it did not demonstrate any obvious acute ischemic substrate (he did have "mild to moderate distal left main disease and mild LAD disease, and PEREZ graft to his LAD was atretic probably related to a low-flow state chronically per the summary report") in August 2011 Retinal detachment repair Smoking History Former Smoker Social History Alcohol Use: "Social" Drug Use: Denies drug use Ambulatory Status Independent Review of Systems Unable to Obtain ROS Mental status Physical Exam Initial Vital Signs Vital Signs (First) Date Time Temp Pulse Resp B/P Pulse Ox O2 Delivery O2 Flow Rate FiO2 12/18/16 23:05 36.8 85 20 132/71 98 Room Air Initial VS: Reviewed Respiratory: Breath sounds normal, Clear to auscultation, No respiratory distress Cardiovascular: Regular rate & rhythm, Heart sounds normal, Intact distal pulses Abdomen / GI: Soft, Non-tender Extremities: Vascular intact, Neuro intact Skin: Warm, Dry, No cyanosis General/Constitutional: Well developed, Well nourished Alertness: Positive: Somnolent (but arousable) Mumbles when he talks to me and closes his eyes. Neck: Atraumatic, Full range of motion HEAD: Laceration across forehead ENT: Airway patent Laceration across the bridge of his nose Lower Extremity / Pelvis / MS: Neurologic intact, Vascular intact Screams out when I move his right leg. Strong pulses. Leg is externally rotated. Interpretation & Diagnostics Lab Results Interpretation Result Diagram: 12/19/16 0120 12/19/16 0120 Test 12/19/16 01:20 White Blood Count 7.3th/mm3 (3.8-10.1) Red Blood Count 4.62mil/mm3 (4.40-5.80) Hemoglobin 14.8g/dL (13.8-17.2) Hematocrit 41.4% (41.0-50.0) Mean Corpuscular Volume 89.6fL (81-100) Mean Corpuscular Hemoglobin 32.0pg (27.0-35.0) Mean Corpuscular Hemoglobin Concent 35.7% (32.0-37.0) Red Cell Distribution Width 12.9% (12.3-15.4) Platelet Count 160bil/L (150-400) Neutrophils (%) (Auto) 67.9% (40-74) Lymphocytes (%) (Auto) 19.5% (14-46) Monocytes (%) (Auto) 10.3% (4-12) Eosinophils (%) (Auto) 1.5% (0-5) Basophils (%) (Auto) 0.4% (0-3) Prothrombin Time 11.2sec (8.1-12.5) Prothromb Time International Ratio 1.05ratio Sodium Level 144mEq/L (134-144) Potassium Level 5.1mEq/L (3.5-5.2) Chloride Level 103mEq/L (97-108) Carbon Dioxide Level 25mmol/L (18-29) Blood Urea Nitrogen 15mg/dL (8-27) Creatinine 0.96mg/dL (0.76-1.27) Estimat Glomerular Filtration Rate 82mL/min (>59) Glucose Level 102mg/dL (60-99) Calcium Level 9.8mg/dL (8.5-10.1) Total Bilirubin 0.7mg/dL (0.0-1.2) Aspartate Amino Transf (AST/SGOT) 24U/L (0-50) Alanine Aminotransferase (ALT/SGPT) 20U/L (0-44) Alkaline Phosphatase 70U/L (25-160) Total Protein 7.0g/dL (6.4-8.4) Albumin 4.4g/dL (3.4-5.0) Hold [place] Top Tube Received (Received) ECG Interpretation ECG Interpretation: Sinus rhythm with a rate of 79 Atrial premature complex Nonspecific intraventricular conduction delay Inferior infarct, old Time: 01:45 Interpreted by: ED physician X-Ray Interpretation Xray Interpretation: Broken right hip that appears to be at the surgical neck X-Ray Ordered: Hip right Interpretation / Wet Read by: Wet read ED physician CT Head Interpretation Impression: No acute intracranial traumatic abnormality. Transmitted to the ED at 00:05 by Ilana Okeefe M.D. Study: Head CT no contrast Interpretation / Wet Read by: Interpret - Radiologist CT C-Spine Interpretation IMPRESSION: No acture fractures or malalignment in the cervical spine. Transmitted to the ED at 00:06 by Ilana Okeefe M.D Study type: CT no contrast Interpretation / Wet Read by: Interpret - Radiologist Re-Eval/Medical Decision Med Decision/Clinical Course Unwitnessed ground-level fall resulting in right femoral neck fracture. Signs of head injury as well. CT scan head and neck were without signs of traumatic injury. Pelvis x-ray shows the fracture. Laboratory work reviewed. Case discussed with Dr. Silvestre. She recommends cardiology clearance prior operative intervention due to this gentleman's complex medical history. Plan to admit to the hospitalist service. Source of Hx: Old records Re-Evaluation/Progress : Time of Eval: 01:14 Re-Evaluation/Progress Note: Pt rechecked. Informed pt of plan for admission. Consultation #1: Referral / Consult Name: Jaziel Garcia MD Consulted With: Hospitalist Call Returned at: 02:00 [employer] Hand Engraver: Will see patient, Agrees with eval, Agrees with plan, Accepts admit Consultation #2: Referral / Consult Name: Kermit Silvestre MD Consulted With: Orthopedic Requested Call at: 01:30 Note: Paged Dr. Silvestre. Consultation #3: Referral / Consult Name: Kermit Silvestre MD Consulted With: Orthopedic Requested Call at: 01:44 Call Returned at: 01:48 [employer] Hand Engraver: Agrees with eval, Agrees with plan Note: Left a message for Dr. Silvestre. Consulted with Dr. Silvestre. Recommends consultation with library science instructor. Counseled Regarding: Diagnosis, Lab results, Need for admission Discharge & Departure Impression: Primary Impression: Closed right hip fracture Encounter type: initial encounter Qualified Code: S72.001A - Fracture of unspecified part of neck of right femur, initial encounter for closed fracture Additional Impressions: Blunt head injury Encounter type: initial encounter Qualified Code: S09.8XXA - Other specified injuries of head, initial encounter Dementia Dementia type: unspecified type Dementia behavioral disturbance: with behavioral disturbance Qualified Code: F03.91 - Unspecified dementia with behavioral disturbance Disposition: ADMITTED TO HOSPITAL Discharge Condition All VS Reviewed: Yes Condition: Stable Referrals: Lennox Nguyễn MD (PCP) Av Attestation Portions of this note were transcribed by Kaycee Cazares. I, Dr. West personally performed the history, physical exam and medical decision-making; I reviewed and confirmed the accuracy of the information in the transcribed note. Signed by : Av Ochoa, 12/18/16. copies to: Lennox Nguyễn MD, Todd P DO Dec 18, 2016 23:07 Kaycee Umanzor Dec 18, 2016 23:30
[2016-12-19] VITALS (9 sets, daily range): BP systolic 104–149; BP diastolic 57–78; PULSE 55–85; RESP 16–22; O2SAT 93–98
[2016-12-19 01:24] LABS: BASOPHILS % (AUTO) 0.4 % (0-3); EOSINOPHILS % (AUTO) 1.5 % (0-5); MONOCYTES % (AUTO) 10.3 % (4-12); Mean Corpuscular Volume 89.6 fL (81-100); NEUTROPHILS % (AUTO) 67.9 % (40-74); Platelet Count 160 bil/L (150-400)
[2016-12-19 01:47] LABS: INR 1.05 ratio
[2016-12-19] MEDS: HYDROmorphone 0.5 mg/0.5 mL iSecure Syringe IVPUSH PRN ×5 (02:09→17:56)
[2016-12-19] MEDS ORDERED: Ondansetron 2 mg/mL 2 mL Inj IVPUSH PRN (02:35)
[2016-12-19] MEDS ORDERED: Alum-Mag Hydrox-Simeth 30 mL Suspension PO PRN (02:35)
[2016-12-19] MEDS ORDERED: Polyethylene Glycol (PEG) 17 Gm Powder PO PRN (02:35)
--- NOTE | 2016-12-19 02:44 | PCM.HPMED ---
Subjective Date of Service Dec 19, 2016 Primary Provider: Admitting Physician: Jaziel Garcia MD Primary Care Physician: Lennox Nguyễn MD Attending Physician: Jaziel Garcia MD Admit Status: From the Emergency Department Chief Complaint: Ground-level fall, unwitnessed History of Present Illness: Niall De La Rosa is a demented 71-year-old male with past medical history significant for CAD, AAA, hyperlipidemia, hypertension that presented to the ED via EMS due to an unwitnessed ground-level fall on 12/18/2016. He was recently hospitalized here for progressive dementia, agitation, and failure to thrive. At that time, he was moved from home into the [facility] as his could not care for him. Further HPI unobtainable due to the patient's dementia. He is unable to answer any questions or interact in any meaningful way. Review of Systems: Unable to obtain due to patient condition. Allergies Coded Allergies: codeine (Verified Allergy, Unknown, 02/23/15) Home Medications Aspirin (Aspirin) 81 Mg Tablet 81 MG PO DAILY (Reported) Fluoxetine (Fluoxetine) 20 Mg Tablet 40 MG PO DAILY (Reported) Lansoprazole ODT (Prevacid ODT) 30 Mg Tab.rap.dr 30 MG PO DAILY (Reported) Losartan Potassium (Losartan Potassium) 25 Mg Tablet 25 MG PO DAILY (Reported) Metoprolol Tartrate (Metoprolol Tartrate) 25 Mg Tablet 12.5 MG PO BID Niacin ER (Niacin ER) 1,000 Mg Tablet 3,000 MG PO HS (Reported) [place]-3/Dha/Epa/Fish Oil (Fish Oil 1,000 mg Softgel) 1 Each Capsule 1 EACH PO DAILY (Reported) Risperidone (Risperdal) 1 Mg Tablet 0.5 MG PO DAILYWD Rosuvastatin Calcium (Crestor) 20 Mg Tablet 20 MG PO DAILY (Reported) As needed Methocarbamol (Methocarbamol) 750 Mg Tablet 750 MG PO QID PRN PRN For Spasm ( Reported) Nitroglycerin SL (Nitroglycerin SL) 0.4 Mg Tab.subl 0.4 MG SL Q5MIN PRN PRN For Chest Pain (Reported) Risperidone (Risperdal) 1 Mg Tablet 0.5 MG PO BID PRN PRN Severe agitation PMH Coronary artery disease status post CABG for three-vessel disease in August 2009 at [facility]. Hypercholesterolemia Expressive aphasia Peripheral vascular disease history of AAA (unknown size, actively monitored by pcp) GERD Hyperlipidemia Hypertension Surgical History CABG 3 utilizing left internal mammary artery graft to left anterior descending, saphenous vein graft to the mus intermedius, radial artery graft to the right posterior descending in August 2009 Status post cardiac catheterization for possible ST segment elevation [place] - but it did not demonstrate any obvious acute ischemic substrate (he did have "mild to moderate distal left main disease and mild LAD disease, and PEREZ graft to his LAD was atretic probably related to a low-flow state chronically per the summary report") in August 2011 Retinal detachment repair Family History Unable to obtain due to patient condition. Social History Hx Alcohol Use: Yes (occasional wine) Hx Substance Use: No Hx Tobacco Use: Yes (Quit) Smoking Status: Former Smoker Exam Vital Signs Vital Sign - Last Date Time Temp Pulse Resp B/P Pulse Ox O2 Delivery O2 Flow Rate FiO2 12/19/16 01:50 36.9 82 20 125/78 98 Room Air Exam General: Elderly man laying comfortably in no acute distress. He does not interact with his surroundings but intermittently mumbles incoherently due to his aphasia. HEENT: Lacerations across his forehead and across his nasal bridge. External ears without defect. Pupils equal, round, and reactive to light and accommodation.Oropharynx free of erythema and cobble stoning with moist mucosa. Neck: Supple with full range of motion. No jugular venous distension or thyromegaly. Cardiovascular: Regular rate and rhythm with no murmurs, rubs, or gallops appreciated Pulmonary: Clear to auscultation bilaterally with no crackles, wheezes, or rhonchi. Normal respiratory effort with no use of accessory muscles. Abdomen: Bowel tones present. Soft, nontender, nondistended. No hepatosplenomegaly or masses appreciated. Extremities: No clubbing, cyanosis, edema. His right leg is externally rotated and visibly shorter than his left. Pulses intact bilaterally. Skin: Normal temperature, turgor, and texture. Head lacerations as above. No ecchymoses on his right hip. Neurological: Unable to assess due to patient condition. Psychiatric: Unable to assess due to patient condition. Lab and Diagnostics Result Diagram: 12/19/1611912/19/16119 X-Rays, CTs and MRIs Right hip x-ray 12/18/16 Broken right hip that appears to be at the surgical neck Brain CT 12/18/16 Impression: No acute intracranial traumatic abnormality. Transmitted to the ED at 00:05 by Ilana Okeefe M.D. Cervical spine CT 12/18/16 IMPRESSION: No acture fractures or malalignment in the cervical spine. Transmitted to the ED at 00:06 by Ilana Okeefe M.D 12-lead ECG ECG Interpretation: Sinus rhythm with a rate of 79 Atrial premature complex Nonspecific intraventricular conduction delay Inferior infarct, old Time: 01:45 Interpreted by: ED physician Assessment & Plan Niall De La Rosa is a demented 71-year-old male with past medical history significant for CAD, AAA, hyperlipidemia, hypertension that presented to the ED via EMS due to an unwitnessed ground-level fall on 12/18/2016. He recently moved from home to [facility] as his was unable to care for his increasing dementia and agitation. Right Fracture of the femoral head, present on admission. Acute. Ongoing. - XRay of the hip show fracture likely due to GLF; formal femoral XR pending at this time - Dr. Silvestre of Ortho consulted from ED; will take patient to OR for fixation pending clearance by Cardiology - Cardiology consult ordered; day team to officially contact - Dilaudid IV 0.5mg prn q4 for pain; monitor BP/HR to assess pain as patient is uncommunicative - Limit movement as possible to avoid aggravating injury - Repeat CBC to assess for bleeding Dementia with agitation, present on admission. Chronic. Ongoing. - Pt recently moved to [facility] due to decline in function and increased agitation - Brain CT negative - Continue Risperidal 0.5mg daily for agitation - Continue PRN agitation regimen per last admission: IV/IM Ativan 2mg q4h for mild/moderate anxiety/agitation IV/IM Haldol 1-5 mg q2h for severe agitation Coronary Artery Disease s/p 3 vessel CABG, present on admission. Chronic. - Continue home Aspirin 81 mg daily. - Continue home Sub lingual nitro prn chest pain. Hypertension, present on admission. Chronic. - Continue Losartan 25 mg daily. - Continue Metoprolol succinate 12.5 mg twice daily. Hyperlipidemia , present on admission. Chronic. - Continue Rosuvastain 20 mg daily. - Continue Niacin 3000 Mg HS. Depression, present on admission. Chronic. - Continue fluoxetine 40 mg daily GERD, present on admission. Chronic. - Continue Lansoprazole 30 mg daily PRN Medications - Acetaminophen as needed for mild pain/fever/headache - Bowel regimen as needed - Antiemetic as needed - SubQ heparin prophylactically Patient status: Patient is admitted under inpatient status with expected length of stay greater than 2 midnights due to severity of presenting symptoms, risk of adverse event, and complexity of treatment plan. GI Prophylaxis: Proton Pump Inhibitor VTE Prophylaxis: Sub-Q Heparin (Unfractionated) Resuscitation Status: CPR: Attempt Resuscitation Attending Statement The patient was seen and examined together with Dr. Arora on 12/19 and I agree with the history, exam and plan as outlined in the note above. copies to: Lennox Nguyễn MD, Jeffery S DO Dec 19, 2016 02:44 Jaziel Garcia MD Dec 19, 2016 04:53
[2016-12-19] MEDS ORDERED: risperiDONE 1 mg Tablet PO PRN (03:15)
--- NOTE | 2016-12-19 03:37 | NUR ---
admit note: pt. admitted from [facility] for falling while walking with a walker and broke right hip, pt. was just here recently for dementia/altheimers. pt. given 0.5mg dilaudid for hip pain prior to turning and changing brief, pt. appears comfortable and is sleeping now.
[2016-12-19] MEDS ORDERED: LORA1TAB PO (06:03)
[2016-12-19] MEDS ORDERED: QUET25TA73 PO (06:03)
[2016-12-19] MEDS ORDERED: ACET325T51 PO (06:03)
[2016-12-19] MEDS ORDERED: LORA10CA9 PO (06:03)
[2016-12-19] MEDS ORDERED: BISA10SU61 RC (06:03)
[2016-12-19] MEDS ORDERED: METH750T3 PO (06:03)
[2016-12-19] MEDS ORDERED: MAGN400O4 PO (06:03)
--- NOTE | 2016-12-19 07:52 | DRSVH ---
PROCEDURE: CT BRAIN WITHOUT CONTRAST ([id number]) INDICATIONS: fall, head injury TECHNIQUE: Noncontrast 4.5 mm thick angled axial sections acquired from the foramen magnum to the vertex, with c oronal reformats. COMPARISON: [facility], CT, CT BRAIN WO CON, 12/04/2016, 14:59. FINDINGS: Image quality: Excellent. CSF spaces: Basal cisterns are patent. No extra-axial fluid collections. The ventricles are symmet sunshine in size and shape. Brain: No intracranial bleeds or masses. There is cerebral volume loss for age, with resultant vent ricular and sulcal prominence. There are periventricular and deep white matter chronic small vessel ischemic changes. There is intracranial internal carotid artery atherosclerosis. Skull and face: Calvarium and visualized facial bones appear intact, without suspicious lesions. Sinuses: Mild ethmoid sinus mucosal thickening. IMPRESSION: 1. No acute intracranial process. 2. Moderate atrophy and chronic microvascular ischemic changes. Dictated by: Maryana Gurrola M.D. on 12/19/2016 at 7:49 Approved by: Maryana Gurrola M.D. on 12/19/2016 at 7:50
--- NOTE | 2016-12-19 07:57 | DRSVH ---
PROCEDURE: CT CERVICAL SPINE WITHOUT CONTRAST ([id number]) INDICATIONS: fall, head injury TECHNIQUE: Noncontrast 3 mm thick sections acquired from the skull base to the T4 level. Sagittal and coronal r eformats were then constructed. For radiation dose reduction, the following was used: automated exp osure control, adjustment of mA and/or kV according to patient size. COMPARISON: S right [facility], CT, CT ANGIO BRAIN AND NECK, 02/23/2015, 19:51. FINDINGS: Image quality: Excellent. Bones: No fractures or dislocations. Visualized superior ribs are intact. Multilevel degenerative changes are present. Soft tissues: Prevertebral soft tissues are normal in thickness. No paravertebral hematomas. No ap ical pneumothoraces. Inferior right thyroid pole low attenuation focus, slightly more prominent when compared to 02/23/15. IMPRESSION: 1. Multilevel degenerative changes without visualized fracture. 2. Right inferior thyroid pole focus, slightly more prominent when compared to 02/23/15. This may repr esent an enlarging cyst versus adenoma. Ultrasound may be obtained as clinically indicated for additional evaluation. Dictated by: Maryana Gurrola M.D. on 12/19/2016 at 7:50 Approved by: Maryana Gurrola M.D. on 12/19/2016 at 7:56
--- NOTE | 2016-12-19 09:02 | DRSVH ---
PROCEDURE: X-RAY CHEST ONE VIEW, PORTABLE ([id number]) INDICATIONS: fall, right leg short and rotated at hip TECHNIQUE: One view of the chest was acquired. COMPARISON: [facility], CR, XR CHEST 1VW (PORTABLE), 12/04/2016, 14:02. FINDINGS: Surgical changes and devices: Sternal wires are present. Lungs and pleura: No pleural effusions or pneumothorax. Lungs are clear. Mediastinum: Mediastinal contours appear normal. Heart size is normal. Bones and chest wall: No suspicious bony lesions. Overlying soft tissues appear unremarkable. IMPRESSION: No acute pulmonary process. Dictated by: Maryana Gurrola M.D. on 12/19/2016 at 9:00 Approved by: Maryana Gurrola M.D. on 12/19/2016 at 9:01
--- NOTE | 2016-12-19 09:02 | DRSVH ---
PROCEDURE: X-RAY PELVIS W/LAT HIP (RT) ([id number]) INDICATIONS: fall, right leg short and rotated at hip TECHNIQUE: AP pelvis with lateral view(s) of the right hip(s). COMPARISON: None. FINDINGS: Bones: There is a mildly angulated right intertrochanteric hip fracture. Significant degenerative bethany rowing is present within the left hip and moderate to severe on the right. Degenerative changes are p resent within the lower lumbar spine. Soft tissues: The visualized bowel gas pattern is normal. No suspicious soft tissue calcifications. IMPRESSION: Mildly angulated right intertrochanteric fracture. Dictated by: Maryana Gurrola M.D. on 12/19/2016 at 8:59 Approved by: Maryana Gurrola M.D. on 12/19/2016 at 9:00
--- NOTE | 2016-12-19 09:03 | PCM.PNMED ---
Subjective Date of Service Dec 19, 2016 Subjective Patient was seen and examined. Labs, tests results were reviewed and discussed with the patient. Home meds, current hospital meds were reviewed, possible side effects discussed with the patient. Plan of care was discussed with the patient. Patient agreed with plan of care. For more details see H&P dictated by admitting physician. Exam Vital Signs Vital Sign - Last Date Time Temp Pulse Resp B/P Pulse Ox O2 Delivery O2 Flow Rate FiO2 12/19/16 08:15 76 12/19/16 06:50 37.1 22 135/78 93 Room Air Lab and Diagnostics Result Diagram: 12/19/16 0120 12/19/16 0120 X-Rays, CTs and MRIs Right hip x-ray 12/18/16 Broken right hip that appears to be at the surgical neck Brain CT 12/18/16 Impression: No acute intracranial traumatic abnormality. Transmitted to the ED at 00:05 by Ilana Okeefe M.D. Cervical spine CT 12/18/16 IMPRESSION: No acture fractures or malalignment in the cervical spine. Transmitted to the ED at 00:06 by Ilana Okeefe M.D 12-lead ECG ECG Interpretation: Sinus rhythm with a rate of 79 Atrial premature complex Nonspecific intraventricular conduction delay Inferior infarct, old Time: 01:45 Interpreted by: ED physician Assessment & Plan Niall De La Rosa is a demented 71-year-old male with past medical history significant for CAD, AAA, hyperlipidemia, hypertension that presented to the ED via EMS due to an unwitnessed ground-level fall on 12/18/2016. He recently moved from home to [facility] as his was unable to care for his increasing dementia and agitation. Right Fracture of the femoral head, present on admission. Acute. Ongoing. - XRay of the hip show fracture likely due to GLF; formal femoral XR pending at this time - Dr. Silvestre of Ortho consulted from ED; will take patient to OR for fixation pending clearance by Cardiology - Cardiology consult ordered - Dilaudid IV 0.5mg prn q4 for pain; monitor BP/HR to assess pain as patient is uncommunicative - Limit movement as possible to avoid aggravating injury Dementia with agitation, present on admission. Chronic. Ongoing. - Pt recently moved to [facility] due to decline in function and increased agitation - Brain CT negative - Continue Risperidal 0.5mg daily for agitation - Continue PRN agitation regimen per last admission: Coronary Artery Disease s/p 3 vessel CABG, present on admission. Chronic. - Continue home Aspirin 81 mg daily. - Continue home Sub lingual nitro prn chest pain. Hypertension, present on admission. Chronic. - Continue Losartan 25 mg daily. - Continue Metoprolol succinate 12.5 mg twice daily. Hyperlipidemia , present on admission. Chronic. - Continue Rosuvastain 20 mg daily. - Continue Niacin 3000 Mg HS. Depression, present on admission. Chronic. - Continue fluoxetine 40 mg daily GERD, present on admission. Chronic. - Continue Lansoprazole 30 mg daily Patient status: Patient is admitted under inpatient status with expected length of stay greater than 2 midnights due to severity of presenting symptoms, risk of adverse event, and complexity of treatment plan. GI Prophylaxis: Proton Pump Inhibitor VTE Prophylaxis: Sub-Q Heparin (Unfractionated) Resuscitation Status: CPR: Attempt Resuscitation Carlos Rodríguez MD Dec 19, 2016 09:03
--- NOTE | 2016-12-19 09:07 | DRSVH ---
PROCEDURE: X-RAY RIGHT FEMUR, TWO VIEWS ([id number]) INDICATIONS: fall, hip fracture TECHNIQUE: 2 views of the femur were acquired. COMPARISON: [facility], CR, XR PELVIS W LATERAL HIP RT, 12/18/2016, 23:31. FINDINGS: Bones: Angulated intertrochanteric right hip fracture. Right knee hemiarthroplasty is present. Soft tissues: No suspicious soft tissue calcifications or masses. IMPRESSION: Angulated right intertrochanteric fracture. Dictated by: Maryana Gurrola M.D. on 12/19/2016 at 9:05 Approved by: Maryana Gurrola M.D. on 12/19/2016 at 9:05
[2016-12-19 09:44] LABS: BASOPHILS % (AUTO) 0.1 % (0-3); EOSINOPHILS % (AUTO) 1.2 % (0-5); MONOCYTES % (AUTO) 8.5 % (4-12); Mean Corpuscular Hemoglobin 32.1 pg (27.0-35.0); Mean Corpuscular Volume 90.4 fL (81-100); NEUTROPHILS % (AUTO) 79.5 % (40-74); Platelet Count 133 bil/L (150-400)
[2016-12-19] MEDS: Heparin 5,000 Unit/mL Inj SUBQ SCH ×2 (10:04→16:55)
[2016-12-19] MEDS: Pantoprazole 40 mg ER24 Tablet PO SCH (10:04)
--- NOTE | 2016-12-19 13:05 | CONS ---
[address] [address] CONSULTATION REPORT PATIENT: RENETTA BLACK : 1945 MR#: [id number] ADMIT: 12/19/2016 JOB ID: [id number] DATE OF SERVICE: 12/19/2016 ORTHOPEDIC CONSULTATION: CHIEF COMPLAINT: This is a severely demented 71-year-old retirement male who fell from a ground level fall on December 18, 2016. He was seen in the emergency department and admitted early this morning with a right femoral neck fracture. Radiographic reading indicated it was an intertrochanteric fracture but he does have some abnormal bone and is probably a basicervical femoral neck fracture. The patient is unable to respond appropriately to any questions. He has multiple medical problems including history of coronary artery disease, prior coronary artery bypass grafting in 2009, abdominal aortic aneurysm, hyperlipidemia and hypertension. REVIEW OF SYSTEMS: Unable to obtain since the patient is not able to express himself appropriately. ALLERGIES: To CODEINE. CURRENT MEDICATIONS: Include: 1. Aspirin. 2. Fluoxetine. 3. Lansoprazole. 4. Prevacid. 5. Losartan. 6. Potassium. 7. Metoprolol. 8. Niacin extended release. 9. Jeffrey-3. 10. Risperdal. 11. Crestor. 12. P.r.n. basis methocarbamol, nitroglycerin and Risperdal. PAST MEDICAL HISTORY/PRIOR SURGERIES: 1. Coronary artery bypass graft x3 August of 2009 at [facility] in [place]. 2. Hypercholesterolemia. 3. Expressive aphasia. 4. Peripheral vascular disease. 5. History of abdominal aortic aneurysm, size unknown at this time. 6. Gastric reflux. 7. Hyperlipidemia. 8. Hypertension. PRIOR SURGERIES: 1. Coronary artery bypass grafting. 2. Retinal detachment repair. FAMILY HISTORY: Unobtainable. SOCIAL HISTORY: The patient drinks occasional wine. He quit smoking. He currently is a resident at [facility] since his is not been able to care for him. PHYSICAL EXAMINATION: Vital signs: Temperature 36.2, pulse 78, respiration 20, blood pressure 142/57. The patient is lying in bed. He is lethargic. He does not respond to questions. Peripheral pulses are diminished but intact. Skin is intact. He does have some facial and head lacerations from the fall. X-rays performed included CT of the brain showing no intracranial bleeding, CT of the neck, no fractures noted. X-rays of the right femur and right hip show he has a right femoral neck fracture with some abnormality in the bone. 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 He has also had a unicompartmental knee in the past. LABORATORY TESTING: White count 7300, hemoglobin 14.8, hematocrit 41.4, platelet count 160,000. Repeat labs today this morning, white count 9300, hematocrit 40.5, hemoglobin 14.4, platelet count 133,000. Sodium 144, potassium elevated at 5.1, chloride 103, CO2 25, BUN 15, creatinine 0.96. Glucose random at 1:02. PT 11.2, INR of 1.05. IMPRESSION: 1. Displaced right femoral neck fracture. 2. 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 3. History of coronary artery disease. 4. Abdominal aortic aneurysm. PLAN: We will order a CT of the pelvis and the right hip to further evaluate the extent of the bony pathology. CT of the pelvis may also shows some of the abdominal aorta. If need be, we will also do a CT scan of the abdomen to further evaluate the abdominal aorta. We will discuss with the surgical treatment options. There is a risk for bleeding, infection, pain, and stiffness, possibility for damage to surrounding neurovascular structures, potential for DVT, pulmonary emboli, PR, stroke and possible severe or fatal cardiopulmonary event. Will have the sign the papers if she has power of mergers and acquisitions attorney. The patient will need preoperative medical clearance from Cardiology since he has a significant cardiac history.
--- NOTE | 2016-12-19 13:09 | NUR ---
Behavior Pt having increasing pain and restlessness this AM. Pulling at brief, removed tele. Pain medications given earlier and then 1mg of Ativan given for restlessness. Pt refused medications and was grabbing and yelling out when moved for changing his brief. MD aware. Continue to monitor.
[2016-12-19 13:30] LABS: TROPONIN T < 0.010 ug/L (0.0-0.011)
[2016-12-19 13:39] LABS: Creatine Kinase 131 U/L (21-232)
--- NOTE | 2016-12-19 15:03 | NUR ---
CT scan Pt pre-medicated prior to CT scan. Able to tolerate movement and scan with only minimal yelling. Pt not overly sedated. Continue to monitor.
[2016-12-19] MEDS: Dextrose 5% 0.9% NaCl 1,000 ML IV SCH (15:05)
--- NOTE | 2016-12-19 15:21 | DRSVH ---
[facility] [address] [place] [address] Echocardiogram Report Name: RENETTA BLACK Bunny e: 12/19/2016 Height: 71 in Hospital Exam Location: [facility] Weight: 193 lb Gender: Male BSA: 2.1 m2 : 1945 Age: 71 yrs BP: 104/64 mm Hg Reason For Study: CAD/Pre-op evaluation for right hip fracture Ordering Physician: JOAN [facility] Performed By: Kaila Castanon Referring Physician: Refugio Oscar Interpretation Summary The study quality was technically difficult. The left ventricle is mildly dilated. Left ventricular ejection fraction is estimated to be 45 +/- 5%. There has been no significant change in LV EF since the previous study. The right ventricle is moderately dilated. Right ventricular systolic function is mildly reduced. This is improved compared to the previous study. There is mild mitral regurgitation. Compared to the prior echo study, there has been no change in the severity of mitral regurgitation. There is mild tricuspid regurgitation. The right ventricular systolic pressure is estimated at 29 mmHg assuming a right atrial pressure of 3 mm Hg. Compared to the prior echo exam, there has been no change in TR severity. Procedure: A two-dimensional transthoracic echocardiogram with color flow and Doppler was performed. (Patient was unable to be repositioned and had a difficult time tolerating the exam). The subcostal views were difficult to obtain and are suboptimal in quality. Comparison is made with the echocardiogram of 09/01/2011. The study quality was technically difficult. The heart rate ranged between 72-107 bpm during the study. Rhythm is not clear. Artifacts seen as well. Left Ventricle: The left ventricle is mildly dilated. Left ventricular wall thickness is mildly increased. Left ventricular ejection fraction is estimated to be 45 +/- 5%. There has been no significant change since the previous study. There appears to be hypokinetic inferoposterior wall and the inferoseptum, however they were not well visualized. Diastolic function could not be accurately assessed due to unobtainable data. Right Ventricle: The right ventricle is moderately dilated. Right ventricular systolic function is mildly reduced. This is improved compared to the previous study. Atria: The left atrium grossly appears normal in size. Both atria have mildly decreased in size since the prior echo exam. The right atrium grossly appears normal in size. Mitral Valve: The mitral valve leaflets appear mildly thickened, but open well. There is mild mitral annular calcification. The mitral valve leaflets are mildly calcified. No significant mitral valve stenosis. There is mild mitral regurgitation. Compared to the prior echo study, there has been no change in the severity of mitral regurgitation. Aortic Valve: The aortic valve is trileaflet. The aortic valve is slightly calcified. There is no hemodynamically significant valvular aortic stenosis. There is trace aortic regurgitation. Tricuspid Valve: The tricuspid valve is not well visualized, but is grossly normal. There is mild tricuspid regurgitation. The right ventricular systolic pressure is estimated at 29 mmHg assuming a right atrial pressure of 3 mm Hg. Compared to the prior echo exam, there has been no change in TR severity. Compared to the prior echo exam, there has been no change in the severity of pulmonary hypertension. Pulmonic Valve: The pulmonic valve is not well visualized. There is trace pulmonic regurgitation. Great Vessels: The aortic root is mildly dilated. The ascending aorta is mild-moderately enlarged. There has been no significant change since the previous study. The IVC is of normal diameter and collapses greater than 50% with a sniff. This suggests a low right atrial pressure of 3 mm Hg. Pericardium/ Pleura There is no pericardial effusion. There is an anterior echo-free space consistent with a fat pad. There is no pleural effusion. MMode/2D Measurements & Calculations LVIDd: 6.0 cm RA long axis LVOT diam LVIDs: 4.7 cm LA A2 area: 21.0 cm FS: 21.8 % LA A4 area: 17.5 cm RA area asc Aorta IVSd: 1.1 cm LA length (vol): 5.2 cm Diam: 4.0 cm LVPWd: 1.3 cm LA vol: 60.2 ml : 15.0 cm LA vol index RA vol: 38.7 ml RA : 29.0 ml/m2 : 18.6 mm2 LV ochoa. diameter/BSA LV sys. diameter/BSA TAPSE: 1.7 cm (cm/m^2): 2.9 (cm/m^2): 2.3 Doppler Measurements & Calculations Ao V2 max Med Peak E' Jonas TR max jonas Ao V2 mean : 124.8 cm/sec : 256.3 cm/sec : 90.4 cm/sec Ao max PG Lat Peak E' Jonas TR max PG Ao V2 VTI : 6.2 mmHg : 14.6 cm/sec : 26.3 mmHg Ao mean PG VIELKA(V,D): 3.5 cm2 LVOT Max Jonas : 89.4 cm/sec VIELKA(I,D): 3.8 cm sev ratio LV V1 max PG VIELKA indexed to BSA (cm^2/m^2): 1.8 LV V1 VTI: 17.7 cm Reading Physician:ALTON
--- NOTE | 2016-12-19 15:38 | DRSVH ---
PROCEDURE: CT ABDOMEN AND PELVIS WITH CONTRAST ([id number]) INDICATIONS: right hip fracture, history of aneurysm TECHNIQUE: After the administration of intravenous contrast, 5 mm thick sections acquired from the diaphragm to the symphysis. 5 mm coronal and sagittal reformats were acquired. For radiation dose reduction, the following was used: automated exposure control, adjustment of mA and/or kV according to patient siz e. COMPARISON: None. FINDINGS: Image quality: Excellent. ABDOMEN: Lung bases: Lung bases are clear. Heart size is normal. Solid organs: Liver and spleen are normal in size and enhancement. 18 mm posterior right hepatic cys t is present. Gallbladder demonstrates normal appearance of hyperdensity within the dependent portion suggestive of sludge. Biliary system is non dilated. Pancreas enhances normally. No adrenal nodul es. Kidneys demonstrate normal size and enhancement, without hydronephrosis. Left renal cyst is pre sent. Peritoneum and bowel: Bowel loops demonstrate normal wall thickness and caliber. No free fluid or a ir. Nodes and vessels: No retroperitoneal or mesenteric adenopathy by size criteria. Aorta demonstrates ectasia measuring 36 mm in greatest transverse dimension. Miscellaneous: No ventral hernias. PELVIS: Genitourinary: Bladder wall thickness is normal. Miscellaneous: No inguinal hernias or adenopathy. Bones: There is an intertrochanteric right of the femoral neck fracture with appearance of posterior angulation/displacement of the distal segment in relation to the proximal. There is approximate 10 mm overlap of proximal and distal fragments. The femoral head remains within the acetabulum without dis location. Remaining osseous structures demonstrate no acute fractures. There is appearance of likely left femoral fracture. However, there is a mildly anterior angulated appearance of the left femoral n gerson. No vertebral body compression fractures. IMPRESSION: 1. Right intertrochanteric femoral neck fracture as described above. Dictated by: Maryana Gurrola M.D. on 12/19/2016 at 15:30 Approved by: Maryana Gurrola M.D. on 12/19/2016 at 15:36
--- NOTE | 2016-12-19 16:31 | CONS ---
[address] [address] CONSULTATION REPORT PATIENT: RENETTA BLACK : 1945 MR#: [id number] ADMIT: 12/19/2016 JOB ID: [id number] CARDIOLOGY CONSULTATION: DATE OF SERVICE: 12/19/2016 REASON FOR CONSULTATION: For preop evaluation. CHIEF COMPLAINT: Patient is not able to provide history. Most of the information I gathered through the current chart, talking to his , as well as reviewing the old chart. The patient had ground level fall and had right femoral neck displaced fracture. He is being planned to have surgery. PRESENT HISTORY: This is a 71-year-old, male who underwent three-vessel bypass surgery in August 2009 (PEREZ graft to LAD, SVG graft to ramus and radial artery graft to the right posterior descending artery), status post repeat left heart catheterization August 2011. At that time, PEREZ graft to LAD was nonfunctioning, left main about 50%, noncritical LAD, occluded ramus and right coronary artery without any critical disease of circumflex and patent SVG graft to ramus and radial graft to PDA, LV ejection fraction 45% to 50% based on left heart catheterization in August 2011, moderate RV dysfunction without any critical valvular pathology, small abdominal aortic aneurysm, essential hypertension, hyperlipidemia, progressively worsening Alzheimer dementia which has worsened so much that patient is not communicating and at present living in [facility]. Had a ground level fall and broke his right hip. Patient being planned to have right hip surgery. Cardiology consult was sought. At present, patient is lying on bed. He does not appear to be in any significant distress. He is not communicative. He has expressive aphasia. According to the , his memory is so bad that he does not remember her sometimes. He is losing ability to communicate. However he does not complain of any active chest pain. He is not in respiratory distress. No palpitation. No obvious cardiovascular symptoms. The patient is totally dependent for day-to-day care. PAST MEDICAL HISTORY: CAD, status post three-vessel bypass surgery in August 2009, details is as stated above, mild abdominal aortic aneurysm, status post CT abdomen today which revealed size is about 3.6 cm. History of essential hypertension, hyperlipidemia, advanced dementia, expressive aphasia, GERD. PAST SURGICAL HISTORY: CABG and retinal detachment repair. ALLERGIES: The patient is allergic to CODEINE. MEDICATIONS: Home medications: 1. Aspirin 81 mg daily. 2. Fluoxetine 40 mg daily. 3. Lansoprazole 30 mg daily. 4. Losartan 25 mg daily. 5. Metoprolol tartrate 25 mg tablet, 12.5 mg b.i.d. 6. Niacin 1000 mg tablet, 3000 mg q.h.s. 7. Risperdal 0.5 mg daily. 8. Crestor 20 mg daily. 9. [place]-3. 10. Methocarbamol. 11. Nitroglycerin on p.r.n. basis. FAMILY HISTORY: Unable to obtain. SOCIAL HISTORY: He is an ex-smoker. No active alcohol abuse. REVIEW OF SYSTEMS: Unobtainable. I tried to tried to get comprehensive review of system but unable to get it from the patient. PHYSICAL EXAMINATION: Blood pressure 104/64, heart rate 60 respiratory rate 18, oxygen saturation 98%. Head: No significant jaundice. Neck: No apparent JVP. I do not appreciate any significant carotid bruit. Chest: Decreased air entry at the bases. CVS: Clinically S1, S2 normal. No S3, no S4. Very soft ejection systolic murmur at the base. Abdomen: No obvious pulsatile mass or hepatosplenomegaly. Extremities: Trace bilateral pedal edema. Vascular: No evidence of critical limb ischemia. RETORT PRESS OPERATOR: Unable to obtain detailed examination. LABORATORY DATA: WBC 9.3, hemoglobin 14.4, platelets 133, polymorphs 79.5. INR 1.05. Sodium 144, potassium 5.1, BUN 15, creatinine 0.96. Magnesium 1.9. Normal AST, ALT. CPK 131, MB 2.7. Troponin T less than 0.010. Echocardiogram done today which revealed LV ejection fraction 45+/- 5% without any significant change from the previous study. Old inferior posterior wall as well as inferior septum hypokinesis. Right ventricle function mildly reduced, mild MR, mild TR and pulmonary artery systolic pressure about 29 mmHg. EKG today revealed sinus rhythm with evidence of old inferior wall VA, intermittent PVCs, some nonspecific ST-T changes and QTc interval 431 msec. IL interval [address] new significant ST-T changes. ASSESSMENT AND PLAN: This 71-year-old, male who has a very advanced dementia, underlying coronary artery disease, status post three-vessel bypass surgery in August 2009, underlying ischemic heart disease with ischemic cardiomyopathy with LV ejection fraction 45+/- 5% without any critical valvular pathology or pulmonary hypertension based on today echocardiogram, small abdominal aortic aneurysm, being planned to have right hip surgery. Clinically he does not appear to be in gross volume overload or congestive heart failure. He is lying down flat. No significant right atrial pressure on 2D echocardiogram. No new significant EKG changes. Troponin normal. Hence, at this point of time he is not high risk for perioperative cardiovascular complications. Right hip surgery is kind of urgent surgery. He may undergo this surgery as planned. RECOMMENDATIONS: Will recommend the following recommendations: Consider close hemodynamic monitoring. Avoid major fluid shift. Consider pulmonary embolism and GI prophylaxis. I will recommend holding losartan 24 hours prior to the surgery to avoid any blood pressure drop. Discussed the plan with the patient's . She understood. She is willing to have him have this surgery. Cardiology service will be available. Please feel free to call us if he needs any further assistance. TIME SPENT: Total time spent today including reviewing old records, about 75 minutes.
[2016-12-19] MEDS: risperiDONE 1 mg Tablet PO SCH (18:05)
[2016-12-20] MEDS: Heparin 5,000 Unit/mL Inj SUBQ SCH ×4 (00:27→23:52)
[2016-12-20 00:57] VITALS: BP 129/67; PULSE 81; RESP 18; O2SAT 94
[2016-12-20] MEDS: HYDROmorphone 0.5 mg/0.5 mL iSecure Syringe IVPUSH PRN ×6 (01:24→23:15)
[2016-12-20 04:24] VITALS: BP 134/65; PULSE 80; RESP 18; O2SAT 94
--- NOTE | 2016-12-20 05:23 | NUR ---
Pain, pt is alert and responsive with baseline dementia. No acute resp dsitress and/or SOB. Noted with some restlessness and crying out in pain while guarding right hip area. Ativan and prn dilaudid administered this shift with some relief. No attempt to get out of bed so far. Care continues.
[2016-12-20] MEDS: Pantoprazole 40 mg ER24 Tablet PO SCH (08:30)
[2016-12-20 08:37] VITALS: BP 114/61; PULSE 54; RESP 15; O2SAT 95
--- NOTE | 2016-12-20 08:38 | NUR ---
Medications held BP 114/61, pulse 54. Notified Dr. Duckworth and metoprolol held due to pulse less than 60. Patient has been NPO for surgery and all morning PO medications held due to NPO for noon surgery per Dr. Duckworth orders. patient is sleeping with eyes closed and no acute respiratory or cardiac distress noted.
[2016-12-20] MEDS: Dextrose 5% 0.9% NaCl 1,000 ML IV SCH (10:26)
[2016-12-20 12:31] VITALS: BP 130/90; PULSE 80; RESP 20; O2SAT 92
--- NOTE | 2016-12-20 13:30 | PCM.PNMED ---
Subjective Date of Service Dec 20, 2016 Subjective Sleeping in bed, present. Did just receive a pain shot. Did sleep OK last night. Surgery canceled for today, tentative for tomorrow AM. Exam Vital Signs Vital Sign - Last Date Time Temp Pulse Resp B/P Pulse Ox O2 Delivery O2 Flow Rate FiO2 12/20/16 12:31 36.9 80 20 130/90 92 Room Air Intake and Output 12/19/16 12/19/16 12/20/16 Cumulative From/Thru 15:00 23:00 07:00 12/18/16 23:05 - 12/20/16 06:39 Intake Total 0 ml 179 ml 578 ml 757 ml Balance 0 ml 179 ml 578 ml 757 ml Intake Oral 0 ml 0 ml 0 ml 0 ml IV Total 179 ml 578 ml 757 ml # Voids 1 3 4 8 # Bowel Movements 0 0 0 0 Exam Skin; warm and dry, no rash HENT; adequate hydration, no lesion Eyes; alysa, CV; regular, no overt murmur Resp; clear anteriorly GI; soft non acute benign Neuro; mostly sleeping, CN 2-12 intact no other gross neuro defects Lab and Diagnostics Result Diagram: 12/19/16 0925 12/19/16 0120 X-Rays, CTs and MRIs Right hip x-ray 12/18/16 Broken right hip that appears to be at the surgical neck Brain CT 12/18/16 Impression: No acute intracranial traumatic abnormality. Transmitted to the ED at 00:05 by Ilana Okeefe M.D. Cervical spine CT 12/18/16 IMPRESSION: No acture fractures or malalignment in the cervical spine. Transmitted to the ED at 00:06 by Ilana Okeefe M.D 12-lead ECG ECG Interpretation: Sinus rhythm with a rate of 79 Atrial premature complex Nonspecific intraventricular conduction delay Inferior infarct, old Time: 01:45 Interpreted by: ED physician Assessment & Plan Niall De La Rosa is a demented 71-year-old male with past medical history significant for CAD, AAA, hyperlipidemia, hypertension that presented to the ED via EMS due to an unwitnessed ground-level fall on 12/18/2016. He recently moved from home to as his was unable to care for his increasing dementia and agitation. 1. Acute Right Fracture of the femoral head, present on admission. active. - XRay of the hip show fracture likely due to GLF; formal femoral XR - Dr. Silvestre of Ortho consulted from ED; will take patient to OR for fixation - Cardiology consult ordered - Dilaudid IV 0.5mg prn q4 for pain; monitor BP/HR to assess pain as patient is uncommunicative - Limit movement as possible to avoid aggravating injury 2. Dementia with agitation, present on admission. Chronic. stable. - Pt recently moved to due to decline in function and increased agitation - Brain CT negative - Continue Risperidal 0.5mg daily for agitation - Hold seroquel for now, only was on this for 2 doses pror to admission, if night time agitation bad consider restarting low dose 3. Coronary Artery Disease s/p 3 vessel CABG, present on admission. stable. - Continue home Aspirin 81 mg daily. - Continue home Sub lingual nitro prn chest pain. 4. Hypertension, present on admission. stable. - Continue Losartan 25 mg daily. - Continue Metoprolol succinate 12.5 mg twice daily. 5. Hyperlipidemia , present on admission. stable. - Continue Rosuvastain 20 mg daily. - Continue Niacin 3000 Mg HS. 6. Depression, present on admission. stable. - Continue fluoxetine 40 mg daily 7. GERD, present on admission. stable. - Continue Lansoprazole 30 mg daily 8. Disposition; - pcp is Dr. Nguyễn - had just moved into [facility] befor this admission (3 days) Patient status: Patient is admitted under inpatient status with expected length of stay greater than 2 midnights due to severity of presenting symptoms, risk of adverse event, and complexity of treatment plan. GI Prophylaxis: Proton Pump Inhibitor VTE Prophylaxis: Sub-Q Heparin (Unfractionated) Resuscitation Status: CPR: Attempt Resuscitation Magda Medina MD Dec 20, 2016 13:30 Magda Medina MD Dec 20, 2016 13:30
[2016-12-20] MEDS ORDERED: CeFAZolin 1,000 mg Inj IV ONE (14:35)
[2016-12-20] MEDS ORDERED: CeFAZolin Inj 2 GM in IV Premix 1 EACH IV ONE (14:45)
--- NOTE | 2016-12-20 15:09 | NUR ---
Pre Op order Clarified new order for Pre op for surgery tomorrow for Ancef IV one time order.
--- NOTE | 2016-12-20 15:43 | PROG NOTE ---
[address] [address] PROGRESS NOTE PATIENT: RENETTA BLACK : 1945 MR#: [id number] ADMIT: 12/19/2016 JOB ID: [id number] DATE: 12/20/2016 SUBJECTIVE: A 71-year-old male with severe senile dementia, Alzheimer disease, with a displaced right femoral neck fracture. surgery has been postponed. We did have multiple traumas come to the emergency department and there was also an emergency appendectomy. He recently was also given some water. Cardiology did see the patient and suggested that we hold any losartan for 24 hours. His metoprolol was also held this morning since his pulse rate was down to 54. We have received preoperative medical clearance from Cardiology. PHYSICAL EXAM: Patient is lying in bed. He is confused, which is his baseline. Temperature 36.9. Pulse was 54. It is now up to 80. Respirations 15. Blood pressure 114/61, now at 130/90. Pulse ox between 92-95. Cardiology has indicated there are no acute new EKG changes. They have suggested close hemodynamic monitoring and avoid any major fluid shift. Of course we will prophylax the patient for DVT prophylaxis. Cardiac echo showed 45+ ejection fraction. PLAN: was present. I did describe to her the risks of surgery including bleeding, infection, pain, and stiffness, possibility for damage to surrounding neurovascular structures. She has also consented for proper disposal of the femoral head as needed and transfusions if needed. She is aware of the potential for DVT, pulmonary emboli, potential for OR and even stroke and/or other cardiopulmonary event. She will sign surgical consent. She has consented to the procedure as the patient cannot sign his own paperwork. Anesthesia will also have the patient's sign their surgical consent. CC: TON
--- NOTE | 2016-12-20 15:56 | NUR ---
Discussion about Buitrago Spoke with Lela (pts ) regarding possible buitrago placement d/t difficultly turning pt d/t pain. Gave Lela info regarding placing buitrago vs not placing it. Pts states she would like to hold off on it right now and just place it in surgery tomorrow. Care conts
--- NOTE | 2016-12-20 16:04 | NUR ---
Social Work: Initial Assessment/Multidisciplinary Rounds D: EMR reviewed. Please see Initial Assessment linked to this note for more information. Pt is a 71 y/o male (readmit) admitted [place] - with a readmit risk score of 3 - for unwitnessed right hip fracture per H&P. Pt's insurance is [employer] and PCP is Lennox Nguyễn. SW met with pt and spouse at bedside to conduct initial assessment. Pt not alert and oriented - not an appropriate historian due to Dementia. SW completed assessment with pt's spouse/DPKIKE De La Rosa ([phone]). SW explained role, wrote phone number on white board, provided [facility] Discharge Planning Checklist encouraged pt's spouse to contact SW for any discharge planning questions. Pt discussed in multidisciplinary rounds and is not medically stable for discharge. Pt to go to OR tomorrow at 0800 - anticipate 3-4 days before pt is ready for discharge. Pt is a readmit who was recently discharged to [facility]. SW discussed pt's fall at facility with spouse. Spouse states that pt was ambulating independently with an attendant who was called to another pt's room. Pt was left alone for a couple of minutes and suffered an unwitnessed fall. Pt's spouse states that the fall was an accident and not due to negligence. Pt's spouse stated [facility] stated [facility] will [facility] pt back and are willing to provide PT services. Pt's spouse is not sure if they have PT on-site or if this would need to be set up through home health or outpt PT. Pt's spouse stated [facility] is willing to work with pt for PT even though pt may not be able to retain information - (e.g. not skillable). Pt's spouse stated that she understands PT would be for pt's recovery and daily mobility. SW confirmed with spouse that SW will follow-up with [facility] to determine what kind of PT services they offer or if PT needs to be coordinated through an outside agency. SW to discuss this information with MD during multidisciplinary rounds to determine and coordinate care plan. Spouse agreeable. A: Pt who is not independent at baseline and who has been accepted to return to [facility]. P: SW to follow-up with [facility] to confirm pt is able to return and confirm what kind of PT services they can provide or if PT services need to be coordinated through an outside agency (e.g. home health or outpt provider). Per pt's spouse, [facility], stated they will accept pt back and are willing to provide PT services. SW will continue to follow. ALICIA Diaz Addendum: 12/20/16 at 1616 by MARCELINO BERNARD Amended: Links added.
[2016-12-20] MEDS: risperiDONE 1 mg Tablet PO SCH (17:11)
--- NOTE | 2016-12-20 18:29 | PROG NOTE ---
[address] [address] PROGRESS NOTE PATIENT: RENETTA BLACK : 1945 MR#: [id number] ADMIT: 12/19/2016 JOB ID: [id number] DATE: SUBJECTIVE: The patient is not communicative. He has significant dementia. His is with him. According to the , no new cardiac issues. He was supposed to have right hip surgery today which was postponed. I saw him yesterday. His LV ejection fraction was 45, plus/minus 5%, without any significant change from the previous study. No significant pulmonary hypertension or valvular pathology. OBJECTIVE: Blood pressure 130/90, heart rate 80, respiratory rate 20, oxygen saturation 92%. Neck: No apparent JVD. Chest: No obvious crepitation or rhonchi. CVS: S1, S2 normal. No S3, no S4. No new murmur. Abdomen: No new changes. Extremity: At present, no significant pedal edema. His troponin yesterday was normal. ASSESSMENT/PLAN: This 71-year-old, male who has a history of very advanced dementia, coronary artery disease, status post three-vessel bypass surgery in August 2009, with underlying ischemic cardiomyopathy with LV ejection fraction 45% without any significant valvular pathology, small abdominal aortic aneurysm, being planned to have right hip surgery. No new EKG changes. Troponin normal. No new significant worsening LV function. At this point of time, he may undergo this surgery as planned. He is not high risk. He falls into the intermediate risk group for perioperative cardiovascular complications. Please follow my recommendations which I am made yesterday. Consider close hemodynamic monitoring. Avoid major fluid shift. Consider pulmonary embolism and GI prophylaxis. Continue tolerable dose of beta reynaldo preoperatively. Total time spent today, about 30 minutes.
[2016-12-20 20:50] VITALS: BP 164/91; PULSE 63; RESP 22; O2SAT 95
[2016-12-20] MEDS: Haloperidol 5 mg/mL Inj IV PRN ×2 (20:50→23:16)
[2016-12-21] VITALS (12 sets, daily range): BP systolic 84–156; BP diastolic 53–80; PULSE 58–82; RESP 12–22; O2SAT 92–98
[2016-12-21] MEDS: HYDROmorphone 0.5 mg/0.5 mL iSecure Syringe IVPUSH PRN ×6 (01:23→23:10)
[2016-12-21] MEDS: Haloperidol 5 mg/mL Inj IV PRN ×4 (02:28→23:35)
--- NOTE | 2016-12-21 03:42 | NUR ---
Pain FELDT scale used to determine pt.'s pain. IV Dilaudid given for pt's pain. Pt's FELDT score has ranged from 0 to 6 tonight. Will continue to monitor.
[2016-12-21] MEDS: Dextrose 5% 0.9% NaCl 1,000 ML IV SCH (06:18)
[2016-12-21 06:59] LABS: BASOPHILS % (AUTO) 0.3 % (0-3); EOSINOPHILS % (AUTO) 3.1 % (0-5); MONOCYTES % (AUTO) 15.7 % (4-12); Mean Corpuscular Hemoglobin 32.2 pg (27.0-35.0); Mean Corpuscular Volume 89.6 fL (81-100); NEUTROPHILS % (AUTO) 70.3 % (40-74); Platelet Count 137 bil/L (150-400)
[2016-12-21] MEDS ORDERED: Lactated Ringer's 1,000 ML IV ONE ×2 (08:11→12:48)
[2016-12-21] MEDS: Heparin 5,000 Unit/mL Inj SUBQ SCH (08:15)
[2016-12-21] MEDS: Pantoprazole 40 mg ER24 Tablet PO SCH (08:15)
--- NOTE | 2016-12-21 08:55 | NUR ---
OR patient off unit to OR.
[2016-12-21] MEDS ORDERED: Dexamethasone 4 mg/mL Inj ONE (09:01)
[2016-12-21] MEDS ORDERED: Propofol 10,000 mCg/mL 20 mL Inj ONE (09:01)
[2016-12-21] MEDS ORDERED: HYDROmorphone 1 mg/mL Inj ONE (09:01)
[2016-12-21] MEDS ORDERED: Rocuronium 10 mg/mL 5 mL Inj ONE (09:01)
[2016-12-21] MEDS ORDERED: Phenylephrine/NS 100 mCg/mL 10 mL Syringe IVPUSH ONE (09:01)
[2016-12-21] MEDS ORDERED: fentaNYL-PF 50 mCg/mL 2 mL Inj ONE (09:01)
[2016-12-21] MEDS ORDERED: Ondansetron 2 mg/mL 2 mL Inj ONE (09:01)
[2016-12-21] MEDS ORDERED: Bupivacaine-MPF 0.5% 30 mL Inj INFILTRATE ONE (09:04)
[2016-12-21] MEDS ORDERED: Lactated Ringer's 1,000 ML IV SCH (09:08)
[2016-12-21] MEDS ORDERED: Lactated Ringer's 500 ML IV PRN (09:08)
--- NOTE | 2016-12-21 09:08 | PCM.HPANE ---
Patient Data Surgeon Admitting Provider:Jaziel Garcia MD Attending Provider:Jaziel Garcia MD Primary Care Physician:Lennox Nguyễn MD Other Provider:HospitalistRefugio Team Reason for Visit R Hip Fracture R HIP FRACTURE Ht/WT & BMI Height (Feet): 5 Height (Inches): 11.00 Weight (Kilograms): 87.800 Body Mass Index 27.10 Allergies Coded Allergies: codeine (Verified Allergy, Unknown, 02/23/15) Past Anesthesia History Anesthesia History: Denies:: Abnormal Airway, Anesthesia Reactions, Difficult Intubation, Fam Anesthesia Reaction, Fam Malignant Hypertherm, Malignant Hyperthermia Diabetes History Hx Diabetes?: No MRSA MRSA: No Medications Reported Medications Acetaminophen 325 Mg Iaycsz552 Mg PO Q4H PRN For Fever Ref 0 12/19/16 Magnesium Hydroxide (Milk of Magnesia)400 Mg/5 Ml Oral.umes809 Mg PO DAILY 12/19/16 Methocarbamol 750 Mg Wwqyqp280 Mg PO DAILY PRN For Spasm Ref 0 12/19/16 Lorazepam 1 Mg Tablet1 Mg PO TID PRN For Anxiety Ref 0 12/19/16 Loratadine 10 Mg Zvkcubp63 Mg PO 12/19/16 Bisacodyl (Dulcolax Rectal)10 Mg Supp.rect10 Mg RC DAILY PRN For Constipation 30 Days Ref 0 12/19/16 Quetiapine Fumarate 25 Mg Nohakx50 Mg PO DAILY Ref 0 12/19/16 Niacin ER 1,000 Mg Tablet3,000 Mg PO HS 12/04/16 [place]-3/Dha/Epa/Fish Oil (Fish Oil 1,000 mg Softgel)1 Each Capsule1 Each PO DAILY 12/04/16 Aspirin 81 Mg Phqjzz44 Mg PO DAILY 12/04/16 Losartan Potassium 25 Mg Eowskw16 Mg PO DAILY 07/28/14 Nitroglycerin SL 0.4 Mg Tab.subl0.4 Mg SL Q5MIN PRN For Chest Pain 07/28/14 Lansoprazole ODT (Prevacid ODT)30 Mg Tab.rap.dr30 Mg PO DAILY #30 TABLET Ref 0 07/28/14 Fluoxetine 20 Mg Ddkwpn68 Mg PO DAILY 30 Days Ref 0 07/28/14 Rosuvastatin Calcium (Crestor)20 Mg Aurfvx87 Mg PO DAILY 30 Days Ref 0 07/28/14 Discontinued Reported Medications Methocarbamol 750 Mg Odtecn616 Mg PO QID PRN For Spasm Ref 0 07/28/14 Metoprolol Succinate ER 50 Mg Tab.er.24h50 Mg PO DAILY 12/04/16 Rivastigmine Patch (Exelon Patch)9.5 Mg Patch9.5 Mg TRANSDERM DAILY 12/04/16 Potassium Gluconate 90 Mg Lrytdo102 Mg PO DAILY 02/23/15 Discontinued Scripts Risperidone (Risperdal)1 Mg Tablet0.5 Mg PO BID PRN Severe agitation #20 TABLET Prov:Carlos Rodríguez MD 12/16/16 Risperidone (Risperdal)1 Mg Tablet0.5 Mg PO DAILYWD #30 TABLET Prov:Carlos Rodríguez MD 12/16/16 Metoprolol Tartrate 25 Mg Jgwqqq14.5 Mg PO BID #30 TABLET Prov:Carlos Rodríguez MD 12/16/16 History History of ENT Problems?: Yes HEENT History: Positive for:: Cataracts Denture Type: None Teeth Condition: Tooth Decay Hx of Heart Problems?: Yes Cardiovascular History: Positive for:: Cardiac Surgery (cabg) Chest Pain Coronary Artery Disease Hypertension (atenolol, HCTZ) Denies:: AICD Abdominal Aortic Aneurism Atrial Fibrillation Congestive Heart Failure Edema Heart Murmur Irregular Heartbeat (palpitations) Pacemaker Peripheral Vascular Rheumatic Fever Thrombophlebitis Valvular Heart Disease Hx of Respiratory Problem?: No Respiratory History: Denies:: Tuberculosis Hx Neurologic Problems?: Yes Neurological History: Positive for:: Alzheimer's Disease Dementia Headaches Other Neurological Pertinent: aphasia, severe dementia Hx of GI Problems?: No Hx of Problems?: No HX of Peritoneal Dialysis: No Other Pertinent History: incontinent Male Hx: Denies:: Prostate Problems Scrotal Mass Testicular Surgery Hx Musculoskeletal Problems?: Yes Musculoskeletal History: Positive for:: Back Injury Hx of Psycho/Social Problems?: Yes Psycho Social History: Positive for:: Anxiety Hx Surgeries?: Yes (Cabg, retinal detachment repair) Hx Any Other Health Problems?: Yes Other History: Positive for:: Hospitalization Denies:: Cancer Thyroid Disease History Blood Transfusions: Positive for:: Accept Blood Products? Denies:: Blood Transfuse Reaction Blood Transfusions Hx Diabetes: No Hx Alcohol Use: NoHx Substance Use: No Smoking Status: Former Smoker Have You Smoked inLast 12 mo: No Stop/Bang Treated for Sleep Apnea?: No Do You Have a CPAP Machine?: No S-Snoring: Do You Snore Loudly: No T-Tired: feel tired, fatigued: No O-Obsered: Observed not breath: No P-Blood Pressure: treated: Yes B- Body Mass Index > 35 kg/m2: No A- Age over 50: Yes N- Neck Large Circumference: No G- Gender Male: Yes DEE Total Score: 2 Risk Assessment Category Category 1A: Patient has history of documented sleep apnea, and HAS NOT received any narcotic, sedative or anesthesia administration during this stay. Category 1B: Patient has history of documented sleep apnea, and HAS received any narcotic , sedative or anesthesia administration during this stay Category 2: Patient has SUSPECTED Obstructive Sleep Apnea, and HAS received any narcotic , sedative or anesthesia administration during this stay. Category 3: Patient has SUSPECTED Obstructive Sleep Apnea and HAS NOT received narcotic, sedative or anesthesia administration during this stay. Category 4: Outpatient in Procedural Areas with known sleep apnea or who screen positive for High Risk via the STOP/BANG questionnaire. Exam Exam Vital Signs Vital Signs Date Time Temp Pulse Resp B/P Pulse Ox O2 Delivery O2 Flow Rate FiO2 12/21/16 06:10 36.8 82 22 156/78 96 Room Air General Appearance: Moderate Distress, Other (Severe Alzheimers, aphasia, can' t follow commands ) HEENT/AIRWAY: MP 2 Lungs: Clear to Auscultation, Normal Air Movement Heart: Exam Unremarkable, Regular Rate/Rhythm, No Murmurs/Rubs/Gallops Meds/Labs/Diagnostics Labs Test 12/19/16 01:20 12/19/16 12:53 12/21/16 06:40 Prothrombin Time 11.2sec (8.1-12.5) Prothromb Time International Ratio 1.05ratio Total Bilirubin 0.7mg/dL (0.0-1.2) Aspartate Amino Transf (AST/SGOT) 24U/L (0-50) Alanine Aminotransferase (ALT/SGPT) 20U/L (0-44) Alkaline Phosphatase 70U/L (25-160) Total Protein 7.0g/dL (6.4-8.4) Albumin 4.4g/dL (3.4-5.0) Hold Stevenson Top Tube Received (Received) Total Creatine Kinase 131U/L (21-232) Creatine Kinase MB 2.7ng/mL (0.0-10.4) Creatine Kinase MB % % (0.0-5.0) Troponin T < 0.010ug/L (0.0-0.011) White Blood Count 6.9th/mm3 (3.8-10.1) Red Blood Count 4.51mil/mm3 (4.40-5.80) Hemoglobin 14.5g/dL (13.8-17.2) Hematocrit 40.4% (41.0-50.0) Mean Corpuscular Volume 89.6fL (81-100) Mean Corpuscular Hemoglobin 32.2pg (27.0-35.0) Mean Corpuscular Hemoglobin Concent 35.9% (32.0-37.0) Red Cell Distribution Width 12.6% (12.3-15.4) Platelet Count 137bil/L (150-400) Neutrophils (%) (Auto) 70.3% (40-74) Lymphocytes (%) (Auto) 10.3% (14-46) Monocytes (%) (Auto) 15.7% (4-12) Eosinophils (%) (Auto) 3.1% (0-5) Basophils (%) (Auto) 0.3% (0-3) Plan Impression Patient chart reviewed, patient interviewed and anesthestic plan with risks, benefits, and alternatives discussed, and informed consent obtained. NPO per Anesth. Guidelines: Yes ASA Physical Status: ASA3 Severe Disease Anesthetic Plan: GA Bene/Risks/Altern/Consents: Yes HP Complete Prior to Induction: Yes Other Dr. Dar Napier had a conversation with the patient's DPOA/ yesterday. He discussed anesthesia risks/benefits and after all questions were answered he had her sign the consent for Mr. De La Rosa. The patient is still full code. I examined the patient as best I could and reviewed the EMR/chart prior to surgery. Freddie Del Real MD Dec 21, 2016 07:53
[2016-12-21] MEDS ORDERED: Labetalol 5 mg/mL 20 mL Inj IV PRN (09:10)
[2016-12-21] MEDS ORDERED: Atropine 0.4 mg/mL Inj IVPUSH PRN (09:10)
[2016-12-21] MEDS ORDERED: Phenylephrine 10,000 mCg/mL Inj IVPUSH PRN (09:10)
[2016-12-21] MEDS ORDERED: HYDROmorphone 1 mg/mL Inj IVPUSH PRN (09:10)
[2016-12-21] MEDS ORDERED: EPHEDrine Sulfate 50 mg/mL Inj IVPUSH PRN (09:10)
[2016-12-21] MEDS ORDERED: fentaNYL-PF 50 mCg/mL 2 mL Inj IVPUSH PRN (09:10)
--- NOTE | 2016-12-21 11:39 | DRSVH ---
PROCEDURE: X-RAY PELVIS ONE OR TWO VIEWS ([id number]) INDICATIONS: TOTAL HIP ARTHROPLASTY TECHNIQUE: Intra-operative view of the pelvis and hip acquired. COMPARISON: [facility], CR, XR FEMUR 2VW RT, 12/19/2016, 2:01. [facility], C R, XR PELVIS 1 OR 2VW, 12/21/2016, 10:33. FINDINGS: Single intraoperative view of the right hip demonstrates the placement of the femoral component of th e hip prosthesis. IMPRESSION: 1. Intraoperative film obtained for surgical localization demonstrates placement of the femoral comp onent. Dictated by: Gerard Beckford M.D. on 12/21/2016 at 11:37 Approved by: Gerard Beckford M.D. on 12/21/2016 at 11:38
--- NOTE | 2016-12-21 11:40 | DRSVH ---
PROCEDURE: X-RAY PELVIS ONE OR TWO VIEWS ([id number]) INDICATIONS: INTRAOPERATIVE IMAGING FOR RIGHT TOTAL HIP TECHNIQUE: Intra-operative view of the pelvis and hip acquired. COMPARISON: [facility], CR, XR FEMUR 2VW RT, 12/19/2016, 2:01. [facility], C R, XR PELVIS 1 OR 2VW, 12/21/2016, 9:57. FINDINGS: Single intraoperative view of the right hip again demonstrates the femoral component of the hip prost hesis. There is interval slight repositioning compared to the prior study. IMPRESSION: 1. Intraoperative film obtained for surgical localization demonstrates placement of the femoral comp onent of the prosthesis. Dictated by: Gerard Beckford M.D. on 12/21/2016 at 11:38 Approved by: Gerard Beckford M.D. on 12/21/2016 at 11:39
[2016-12-21] MEDS ORDERED: 0.9% Sodium Chloride 1,000 ML IV SCH ×2 (12:08→15:45)
--- NOTE | 2016-12-21 13:13 | PCM.ANEP1 ---
Post Anesthesia PACU Phase 1 Assessment Vital Signs Vital Signs Date Time Temp Pulse Resp B/P Pulse Ox O2 Delivery O2 Flow Rate FiO2 12/21/16 13:04 62 13 90/54 98 Simple Mask 8 12/21/16 12:50 36.7 61 14 85/56 98 Simple Mask 8 12/21/16 12:40 64 14 86/55 98 Simple Mask 8 12/21/16 12:35 66 12 86/56 98 Simple Mask 8 12/21/16 12:20 64 14 84/53 97 Simple Mask 8 12/21/16 12:10 37.6 66 13 90/55 96 Simple Mask 8 12/21/16 06:10 36.8 82 22 156/78 96 Room Air Anesthetic Administered: GA Level of Alertness: Drowsy, not talking (baseline mental status) LIN's with Equal Strength: Yes Pain: Yes (RN is in the room right now) Pain Scale Score: 6 Nausea or Vomiting: No CV Function & Hydration Stable: Yes Airway Device: Oralpharangeal Airway Oxygen Delivery: Simple Mask Lungs: Clear to Auscultation, Normal Air Movement Dermatome Level: Full Sensation PACU Phase 2 Assessment Complications: No Follow up Care: N/A Patient Instructions Provided: N/A Freddie Del Real MD Dec 21, 2016 13:13
--- NOTE | 2016-12-21 13:48 | DRSVH ---
PROCEDURE: X-RAY PELVIS W/LAT HIP (RT) ([id number]) INDICATIONS: post op right total hip TECHNIQUE: AP pelvis and lateral view of the right hip acquired. COMPARISON: [facility], CR, XR FEMUR 2VW RT, 12/19/2016, 2:01. [facility], C R, XR PELVIS 1 OR 2VW, 12/21/2016, 10:33. FINDINGS: Bones: Patient is status post right hip arthroplasty, with near-anatomic alignment. No new fracture s. The pelvic ring appears intact. There is deformity of the proximal left femur are redemonstrated consistent with an exostosis. Soft tissues: Overlying postoperative changes are noted. IMPRESSION: 1. Postsurgical changes status post right hip arthroplasty with near-anatomic alignment. Dictated by: Gerard Beckford M.D. on 12/21/2016 at 13:45 Approved by: Gerard Beckford M.D. on 12/21/2016 at 13:47
--- NOTE | 2016-12-21 13:51 | NUR ---
Arrival to unit Patient arrived to unit 1320. per assessment patient is increasingly sleepy/sedated when arrived to unit and does not opens eyes when called name. No sign and symptoms of cardiac and respiratory distress noted. Tele on Sinus Joel 59-65 per auto body repair technician. spouse at bed side. BP90/57, pulse 58, oxygen 93%2L, RR16, Afebrile. Soriano in place and draining clear yellow urine. Foam wedge present in between both legs. Island dressing to right hip clean dry and intact. Fluid running as ordered. hospitalist aware.
--- NOTE | 2016-12-21 15:50 | PCM.PNMED ---
Subjective Date of Service Dec 21, 2016 Subjective Back from surgical repair of hip fracture. Little slow to wake up but all seems ok. No significant beavioral issues last night. Wif present questions answered. Exam Vital Signs Vital Sign - Last Date Time Temp Pulse Resp B/P Pulse Ox O2 Delivery O2 Flow Rate FiO2 12/21/16 13:32 37.1 58 18 90/57 93 Nasal Cannula 2.00 Intake and Output 12/20/16 12/20/16 12/21/16 Cumulative From/Thru 15:00 23:00 07:00 12/18/16 23:05 - 12/21/16 06:01 Intake Total 554 ml 574 ml 1885 ml Balance 554 ml 574 ml 1885 ml Intake Oral 0 ml 0 ml IV Total 554 ml 574 ml 1885 ml # Voids 4 12 # Bowel Movements 0 0 Exam Skin; warm and dry, no rash HENT; adequate hydration, no lesion Eyes; alysa, CV; regular, no overt murmur Resp; clear anteriorly GI; soft non acute benign Neuro; dificult to arrouse, but does, no focal defectrs, cn's appear intact good clean dressing right hip area Lab and Diagnostics Result Diagram: 12/21/16 0640 12/21/16 0640 X-Rays, CTs and MRIs Right hip x-ray 12/18/16 Broken right hip that appears to be at the surgical neck Brain CT 12/18/16 Impression: No acute intracranial traumatic abnormality. Transmitted to the ED at 00:05 by Ilana Okeefe M.D. Cervical spine CT 12/18/16 IMPRESSION: No acture fractures or malalignment in the cervical spine. Transmitted to the ED at 00:06 by Ilana Okeefe M.D 12-lead ECG ECG Interpretation: Sinus rhythm with a rate of 79 Atrial premature complex Nonspecific intraventricular conduction delay Inferior infarct, old Time: 01:45 Interpreted by: ED physician Assessment & Plan Niall De La Rosa is a demented 71-year-old male with past medical history significant for CAD, AAA, hyperlipidemia, hypertension that presented to the ED via EMS due to an unwitnessed ground-level fall on 12/18/2016. He recently moved from home to [facility] as his was unable to care for his increasing dementia and agitation. 1. Acute Right Fracture of the femoral head, present on admission. active. - surgical repair; 12/21/16 - Dilaudid IV 0.5mg prn q4 for pain - lovenox per ortho - physicial therapy 2. Dementia with agitation, present on admission. Chronic. stable. - Pt recently moved to [facility] due to decline in function and increased agitation - Brain CT negative - Continue Risperidal 0.5mg daily for agitation - Hold seroquel for now, only was on this for 2 doses prior to admission, if night time agitation bad consider restarting low dose 3. Coronary Artery Disease s/p 3 vessel CABG, present on admission. stable. - Continue home Aspirin 81 mg daily. - Continue home Sub lingual nitro prn chest pain. 4. Hypertension, present on admission. stable. - Continue Losartan 25 mg daily. - Continue Metoprolol succinate 12.5 mg twice daily. 5. Hyperlipidemia , present on admission. stable. - Continue Rosuvastain 20 mg daily. - Continue Niacin 3000 Mg HS. 6. Depression, present on admission. stable. - Continue fluoxetine 40 mg daily 7. GERD, present on admission. stable. - Continue Lansoprazole 30 mg daily 8. Disposition; - pcp is Dr. Nguyễn - had just moved into [facility] befor this admission (3 days), present plan is to discharge from hosp to [facility] Patient status: Patient is admitted under inpatient status with expected length of stay greater than 2 midnights due to severity of presenting symptoms, risk of adverse event, and complexity of treatment plan. GI Prophylaxis: Proton Pump Inhibitor VTE Prophylaxis: Sub-Q Heparin (Unfractionated) Resuscitation Status: CPR: Attempt Resuscitation Magda Medina MD Dec 21, 2016 15:50
--- NOTE | 2016-12-21 15:54 | NUR ---
Mentation Patient awakens to voice and opens eyes. Head of the bed elevated. BP 120/80, pulse 80. Stable oxygen on 2LNC. no sign and symptoms of pain noted. Hospitalist at bed side and aware of patient condition.
[2016-12-21] MEDS: CeFAZolin Inj 2 GM in IV Premix 1 EACH IV SCH (16:10)
[2016-12-21] MEDS: Sodium Chloride LOK Flush 10 mL Syringe IV SCH (16:12)
[2016-12-21] MEDS: risperiDONE 1 mg Tablet PO SCH (16:50)
--- NOTE | 2016-12-21 16:55 | OP ---
[address] [address] OPERATIVE REPORT PATIENT: RENETTA BLACK : 1945 MR#: [id number] ADMIT: 12/19/2016 JOB ID: [id number] DATE OF SURGERY: PREOPERATIVE DIAGNOSIS(ES): Displaced right femoral neck fracture. Probable pathologic fracture with underlying bony changes most consistent with multiple hereditary exostoses. POSTOPERATIVE DIAGNOSIS(ES): Displaced right femoral neck fracture. Probable pathologic fracture with underlying bony changes most consistent with multiple hereditary exostoses. PROCEDURE: Cemented right hip bipolar hemiarthroplasty. IMPLANTS UTILIZED: [place] cemented #6 stem, 12.5 mm neck and a 53 mm bipolar cup. Small femoral canal plug and 11 mm central stabilizer. SURGEON: Kermit Silvestre MD. ROUSTABOUT CREW LEADER: Brenden Escalante PA-C. Brenden Escalante was an integral portion of the procedure, helping obtain and maintain retraction and positioning to place the prosthesis. ESTIMATED BLOOD LOSS: 150 mL. ANESTHESIA: General. DRAINS: None. COMPLICATIONS: None. INDICATIONS: This is a 71-year-old male with severe Alzheimer disease with limited mobility who fell at his fpc sustaining a displaced right femoral neck fracture. Initial x-rays did show some abnormalities of the proximal aspects of both femurs as well as the distal aspect of the right femur near the knee. Bony findings were more consistent with multiple hereditary exostoses. PROCEDURE: Under general anesthetic, the patient was placed in the left lateral decubitus position. An incision was fashioned over the right hip in a posterolateral approach. Tensor fascia shelia was incised. A Charnley retractor was placed taking care to protect the sciatic nerve. Piriformis tendon was identified, tagged, and released from the proximal femur. An additional small portion of the external rotators were also tagged and released from the proximal femur. Retractors were placed under the gluteus medius muscle. The joint capsule was then incised in a T-fashion. It was tagged for later repair. The proximal femur had some abnormality with the bony changes from what appears to be most consistent with multiple hereditary exostoses. I did perform a femoral neck cut to make it slightly easier for removal of the femoral head. Femoral head corkscrew was then placed and the femoral head was removed and measured to be 53 mm. Utilizing the trial, the 53 mm bipolar cup appeared to be the best fit. Femoral elevator was then placed under the femoral neck. Some additional soft tissue was removed around the lesser trochanter to provide better exposure. The canal was then lateralized, canal finder utilized, and it was broached up to a #5 stem. A +5 neck was tried and this was found to be too loose. It was placed through range of motion. I then tried 8.5 mm neck length. This was reduced in position and placed through range of motion. X-rays were taken to further evaluate the prosthesis. It appeared that additional small amount of femoral neck needed to be cut and reposition the prosthesis. The trial components were removed. An additional small amount was trimmed from the proximal femur utilizing the oscillating saw. The canal was then again approached and this time I was able to position a #6 broach. I then tried a 12.5 mm neck length with slightly more offset and this was reduced in position with a 53 mm cup. This appeared to provide better length and better stability of the femur. X-rays were taken confirming better fit and fill with the prosthesis and better length. The temporary components were removed. The wounds were thoroughly irrigated with antibiotic solution. The canal was then plugged with a medium plug since the larger plug appeared to be too large. It was placed in the proper position and depth. The canal was then pulse lavaged and brushed. It was dried. Cement was then mixed. Low viscosity cement without antibiotic. Utilizing the cement gun, the cement was pressurized. The prosthesis was then cemented into position in the proper amount of anteversion. Any excess cement was removed. The prosthesis was held in position until the cement was dried. Again, after the prosthesis was in position and the cement had dried, any excess cement was subsequently removed. The wound was again irrigated with antibiotic solution. There was a small amount of thickened ligamentum teres in the acetabulum and this was also trimmed. The top part of the stem was then dried and the 12.5 mm neck with the 53 mm bipolar cup was then seated in position and tapped on the Roach taper fit. The hip was then reduced and placed through a range of motion. It was felt to be stable. The hip capsule was then repaired with interrupted sutures of 0 Ethibond. The piriformis was then repaired and the rest of the portion of the external rotators that were originally detached from the proximal femur with some 0 Ethibond. The wound was again irrigated with antibiotic solution. The leg was then placed on a Velasquez stand. Tensor fascia shelia was closed with interrupted nwheys-yw-oamjp sutures of #1 Vicryl. Subcutaneous layers were closed with interrupted sutures of 0 and 2-0 Vicryl. Skin was infiltrated with 0.5% plain Marcaine. The skin was then closed with pierre. A silver impregnated dressing was then placed on the hip wound as well as a dry sterile dressing. The patient was placed in his abduction pillow and carefully taken off the operating room table and placed in his bed. Postoperative x-rays in the recovery room confirmed good position of the prostheses on AP pelvis and AP and lateral hip views. PLAN: The patient has severe dementia. He should be able to weightbear as tolerated with physical therapy and a rolling walker. He needs to be careful with posterior hemiarthroplasty precautions and avoid extremes of flexion and internal rotation to avoid dislocation. The patient will be not able to follow directions very well and will need to be closely supervised. Pierre will need to be removed in two weeks. He should be seen in the office in two weeks for staple removal, wound check, and then he will be seen again in followup in six weeks. X-rays will be obtained. He will also need DVT prophylaxis. I am recommending Lovenox 40 mg subcu daily for three weeks. Since he is very forgetful and has issues perhaps with falling, I would not recommend any prolonged aspirin thereafter to avoid risk for bleeding. CC: [facility]
[2016-12-21] MEDS: 0.9% Sodium Chloride 1,000 ML IV SCH (18:20)
--- NOTE | 2016-12-21 18:30 | PROG NOTE ---
[address] [address] PROGRESS NOTE PATIENT: RENETTA BLACK : 1945 MR#: [id number] ADMIT: 12/19/2016 JOB ID: [id number] DATE: 12/21/2016 SUBJECTIVE: The patient is status post right hip surgery. According to the nurse, he tolerated the surgery. The patient is significantly demented. He is not communicative but appears to be more awake. He does not appear to be in significant distress. OBJECTIVE: Blood pressure 120/80, heart rate 76, respiratory rate 16, oxygen saturation 95%. Neck: No apparent JVD. Chest: No obvious crepitation or rhonchi. CVS: S1, S2 normal. No S3, no S4. No significant murmur. Abdomen: No new changes. Extremity: No significant pedal edema. LABORATORIES: Hemoglobin 14.5, and platelets 137 this morning. Sodium 137, potassium 4.1, BUN 9, creatinine 0.69, TSH 2.12. ASSESSMENT AND PLAN: This 71-year-old, male who has a history of very advanced dementia, coronary artery disease status post three-vessel bypass surgery in August 2009 with underlying ischemic cardiomyopathy with left ventricular ejection fraction 45% without any significant valvular pathology, small abdominal aortic aneurysm underwent right hip surgery for right femoral neck fracture. At present, he appears compensated. His troponin during admission was normal. He does not appear to be in gross volume overload, however, he is getting 100 cc normal saline. Because of underlying LV dysfunction, we will recommend decreasing to 50 cc/hour and stop once the feeding will get started. Watch carefully for symptoms and signs of volume overload. Discussed the plan with the nurse. Continue his cardiac medications. Down the road, add on losartan which he used to take at home. At this point of time, Cardiology service will sign off. Will recommend followup with his primary car whacker, Dr. Holguin, as an outpatient. TOTAL TIME SPENT: Today about 35 minutes.
--- NOTE | 2016-12-21 18:31 | NUR ---
IV fluids per uniform maker due to LVD IV NS at 100 decrease to 50cc/hour to run overnight and then discontinue IF fluids due to LVD. Phone paged Dr. mae and verbal orders received," agrees with uniform maker orders." IV NS rate changed to 50cc /hour and will report to vegetable scullion.
[2016-12-22] VITALS (8 sets, daily range): BP systolic 109–142; BP diastolic 64–82; PULSE 65–107; RESP 16–18; O2SAT 93–98
[2016-12-22] MEDS: CeFAZolin Inj 2 GM in IV Premix 1 EACH IV SCH ×2 (00:21→09:22)
[2016-12-22] MEDS: Sodium Chloride LOK Flush 10 mL Syringe IV SCH ×3 (00:25→16:13)
[2016-12-22] MEDS: HYDROmorphone 0.5 mg/0.5 mL iSecure Syringe IVPUSH PRN ×8 (01:48→22:03)
--- NOTE | 2016-12-22 03:12 | NUR ---
Pain/ Mentation Pt. more alert during shift. Not oriented due to hx of dementia. Pt. tolerating snacks and water well during NOC shift with no emesis noted. FELDT scale used to measure pain. IV Dilaudid given for pain, and effective for pain. Will continue to monitor.
[2016-12-22] MEDS: 0.9% Sodium Chloride 1,000 ML IV SCH ×2 (05:49→17:22)
[2016-12-22 06:44] LABS: BASOPHILS % (AUTO) 0.2 % (0-3); EOSINOPHILS % (AUTO) 1.9 % (0-5); MONOCYTES % (AUTO) 17.8 % (4-12); Mean Corpuscular Hemoglobin 31.9 pg (27.0-35.0); Mean Corpuscular Volume 91.3 fL (81-100); NEUTROPHILS % (AUTO) 66.1 % (40-74); Platelet Count 148 bil/L (150-400)
[2016-12-22] MEDS: Pantoprazole 40 mg ER24 Tablet PO SCH ×2 (08:30→09:22)
--- NOTE | 2016-12-22 09:31 | PCM.PNORTH ---
Subjective Date of Service: Dec 22, 2016 Visit Information: Reason for Visit R Hip Fracture Surgery/Surgery Date R HIP BIPOLAR HEMIARTHROPLASTY 12/21/16 Post-Op Day # 1 Date of Admission: Dec 19, 2016 at 01:53 Hospital Day # Subjective Patient laying in bed tugging at his IV. He does not respond to verbal commands. Postop General: No Complaints Pain Management: PO Objective Exam Objective Patient laying in bed, awake but not responsive to verbal instructions. Does not appear to be in acute distress and does not show signs of pain when moving the affected extremity. Vital Signs and I/O Vital Sign - Last Date Time Temp Pulse Resp B/P Pulse Ox O2 Delivery O2 Flow Rate FiO2 12/22/16 09:09 93 12/22/16 08:21 36.9 18 129/64 95 Room Air 12/21/16 15:49 2.00 Intake and Output 12/21/16 12/21/16 12/22/16 Cumulative From/Thru 15:00 23:00 07:00 12/18/16 23:05 - 12/22/16 06:27 Intake Total 2150 ml 501 ml 618 ml 5154 ml Output Total 325 ml 150 ml 300 ml 775 ml Balance 1825 ml 351 ml 318 ml 4379 ml Intake Oral 0 ml 10 ml 50 ml 60 ml IV Total 2150 ml 491 ml 568 ml 5094 ml Output Urine Total 175 ml 150 ml 300 ml 625 ml Estimated Blood Loss 150 ml 150 ml # Voids 2 14 # Bowel Movements 0 0 0 0 Lab & Micro Results Laboratory Tests Test 12/21/16 13:15 12/22/16 06:00 Hold Urine Received (Received) White Blood Count 8.3th/mm3 (3.8-10.1) Red Blood Count 3.92mil/mm3 (4.40-5.80) Hemoglobin 12.5g/dL (13.8-17.2) Hematocrit 35.8% (41.0-50.0) Mean Corpuscular Volume 91.3fL (81-100) Mean Corpuscular Hemoglobin 31.9pg (27.0-35.0) Mean Corpuscular Hemoglobin Concent 34.9% (32.0-37.0) Red Cell Distribution Width 12.7% (12.3-15.4) Platelet Count 148bil/L (150-400) Neutrophils (%) (Auto) 66.1% (40-74) Lymphocytes (%) (Auto) 13.8% (14-46) Monocytes (%) (Auto) 17.8% (4-12) Eosinophils (%) (Auto) 1.9% (0-5) Basophils (%) (Auto) 0.2% (0-3) Sodium Level 138mEq/L (134-144) Potassium Level 4.3mEq/L (3.5-5.2) Chloride Level 103mEq/L (97-108) Carbon Dioxide Level 20mmol/L (18-29) Blood Urea Nitrogen 14mg/dL (8-27) Creatinine 0.78mg/dL (0.76-1.27) Estimat Glomerular Filtration Rate 104mL/min (>59) Glucose Level 103mg/dL (60-99) Calcium Level 8.0mg/dL (8.5-10.1) Result Diagram: 12/22/16 0600 12/22/16 0600 Extremities: Distal Pulses Palpable, No Compartment Syndrom Noted Postop Sensory Motor: Distal Motor Intact, Movement in Toes SURGICAL WOUND : Wound Location/Description Perioperative dressing c/d/i Assessment & Plan Impression Postop day #1 right hip bipolar hemiarthroplasty Problems: Plan Weightbearing: Weightbearing as tolerated with a front-wheeled walker. Patient is demented and will need constant reminders of his posterior precautions DVT prophylaxis: Recommend Lovenox 40 mg daily 3 weeks Physical therapy for transfers, progressive ambulation, strengthening Wound care: Perioperative dressings were changed to a nylon dressing tomorrow Analgesia: Oral pain management preferably non-opioid as patient has baseline dementia. Discharge plan: Discharge SNF in 1-2 days. Follow-up plan: In 2 weeks at [facility] with ESSIE for wound check and at [address] Silvestre with x-rays Resuscitation Status: CPR: Attempt Resuscitation Stephanie Poe PA-C Dec 22, 2016 09:31
--- NOTE | 2016-12-22 09:34 | NUR ---
Medications/Pain Patient refused medications this morning by spitting them out when attempting to administer in applesauce even when crushed. Lovenox injection and IVP dilaudid for pain was given, BP WNL, and SCDs in place. When pulling patient up in bed, patient screamed out and pushed staff away. This possibly due to pain. Pain medication given to patient, ice in place, and position changes for comfort.
--- NOTE | 2016-12-22 10:25 | PCM.PNMED ---
Subjective Date of Service Dec 22, 2016 Subjective Improving, at rest, does OK but with movement or interaction by staff becomes somewhat aggitated and unhappy. No other problems noted. PT here to see patient today, post op day #2. Exam Vital Signs Vital Sign - Last Date Time Temp Pulse Resp B/P Pulse Ox O2 Delivery O2 Flow Rate FiO2 12/22/16 09:09 93 12/22/16 08:21 36.9 18 129/64 95 Room Air 12/21/16 15:49 2.00 Intake and Output 12/21/16 12/21/16 12/22/16 Cumulative From/Thru 15:00 23:00 07:00 12/18/16 23:05 - 12/22/16 06:27 Intake Total 2150 ml 501 ml 618 ml 5154 ml Output Total 325 ml 150 ml 300 ml 775 ml Balance 1825 ml 351 ml 318 ml 4379 ml Intake Oral 0 ml 10 ml 50 ml 60 ml IV Total 2150 ml 491 ml 568 ml 5094 ml Output Urine Total 175 ml 150 ml 300 ml 625 ml Estimated Blood Loss 150 ml 150 ml # Voids 2 14 # Bowel Movements 0 0 0 0 Exam Skin; warm and dry, no rash HENT; adequate hydration, no lesion Eyes; alysa, no nystagmus CV; regular, no overt murmur Resp; clear anteriorly GI; soft non acute benign Neuro; awake, confused, no focal defectrs, cn's appear intact good clean dressing right hip area Lab and Diagnostics Result Diagram: 12/22/16 0600 12/22/16 0600 X-Rays, CTs and MRIs Right hip x-ray 12/18/16 Broken right hip that appears to be at the surgical neck Brain CT 12/18/16 Impression: No acute intracranial traumatic abnormality. Transmitted to the ED at 00:05 by Ilana Okeefe M.D. Cervical spine CT 12/18/16 IMPRESSION: No acture fractures or malalignment in the cervical spine. Transmitted to the ED at 00:06 by Ilana Okeefe M.D 12-lead ECG ECG Interpretation: Sinus rhythm with a rate of 79 Atrial premature complex Nonspecific intraventricular conduction delay Inferior infarct, old Time: 01:45 Interpreted by: ED physician Assessment & Plan Niall De La Rosa is a demented 71-year-old male with past medical history significant for CAD, AAA, hyperlipidemia, hypertension that presented to the ED via EMS due to an unwitnessed ground-level fall on 12/18/2016. He recently moved from home to [facility] as his was unable to care for his increasing dementia and agitation. 1. Acute Right Fracture of the femoral head, present on admission. active. - surgical repair; 12/21/16 - Dilaudid IV 0.5mg prn q4 for pain - lovenox per ortho - physicial therapy starting today 2. Dementia with agitation, present on admission. Chronic. stable. - Pt recently moved to [facility] due to decline in function and increased agitation - Brain CT negative - see Psychiatric recommendations note (12-10-16, Dr. Moran) from last visit here will follow their recommendations: - reduce prosac to 20 - Risperidone 0.5 HS, can add during day for sever aggetation - stop seroquel - prn IV ativan for aggitation 3. Coronary Artery Disease s/p 3 vessel CABG, present on admission. stable. - Continue home Aspirin 81 mg daily. - Continue home Sub lingual nitro prn chest pain. 4. Hypertension, present on admission. stable. - Continue Losartan 25 mg daily. - Continue Metoprolol succinate 12.5 mg twice daily. 5. Hyperlipidemia , present on admission. stable. - Continue Rosuvastain 20 mg daily. - Continue Niacin 3000 Mg HS. 6. Depression, present on admission. stable. - Continue fluoxetine 40 mg daily 7. GERD, present on admission. stable. - Continue Lansoprazole 30 mg daily 8. Disposition; - pcp is Dr. Nguyễn - had just moved into [facility] befor this admission (3 days), present plan is to discharge from hosp to [facility] Patient status: Patient is admitted under inpatient status with expected length of stay greater than 2 midnights due to severity of presenting symptoms, risk of adverse event, and complexity of treatment plan. GI Prophylaxis: Proton Pump Inhibitor VTE Mechanical Devices: Intermittant Pneumatic CD Resuscitation Status: CPR: Attempt Resuscitation Magda Medina MD Dec 22, 2016 10:25
--- NOTE | 2016-12-22 11:05 | NUR ---
Evaluation completed. Please go to "Notes" then click on "Assessments and Notes" (bottom left corner of screen). Then select appropriate discipline tab on top of screen.
--- NOTE | 2016-12-22 14:12 | NUR ---
Febrile CHANGE CONTROL ANALYST reported elevated temperature of 38.7. Lung sounds are clear to auscultation, IV saline locked, and right hip dressing CDI. Tylenol given to patient. Rechecked temperature and was 38.0. Hospitalist paged. Continuing to check temperature.
--- NOTE | 2016-12-22 15:15 | NUR ---
Social Work- Continued D/C Planning/Multidisciplinary Rounds Data: EMR reviewed. PT is on day 3 of hospitalization for right hip fracture. Pt discussed in multidisciplinary rounds. Pt is not medically ready for discharge, pt is POD 1. PT attempted to mobilize pt today, pt had extreme pain and agitation. Pt is total A with all mobility at this time. 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 Encouraged pt's to contact pt's PCP for this letter for continuity of care. Pt's agreeable. Spoke with [facility] regarding pt and PT for pt at discharge. Tatyana, Model And Dye Person at [facility]. Tatyana states that PT as [facility] is usually through [facility] who come out twice weekly to work with pts. This is in place for memory care patients that are not appropriate for SNF due to difficulty retaining the teachings at [facility]. If this is appropriate for pt at discharge pt will require HHPT orders to be placed and coordination with [facility]. Tatyana also confirms that pt will require a bedside assessment prior to discharge. MELANIE discussed that pt is total assist with mobility at this time and has not even sat at the EOB. Tatyana requested clinicals be faxed to [phone]. LIZZETTE requested to fax clinicals. Due to nature of pt's fall, case screens in for RCS report. Report # Assessment: Pt who is not capable of self-care and resides at [facility]. Plan: PT to continue to mobilize pt as appropriate. [facility] contracts with [facility] services for HHPT services at their facility. MELANIE will continue to follow to coordinate the most appropriate discharge plan. Pt will require bedside assessment done by [facility] prior to discharge. ALICIA Padgett Addendum: 12/22/16 at 1537 by KELSIE SILVERIO RCA Report # is [id number]
[2016-12-22] MEDS: Haloperidol 5 mg/mL Inj IV PRN ×2 (15:36→22:04)
--- NOTE | 2016-12-22 15:42 | NUR ---
Tele certified control systems technician called to report 3.5 seconds of PSVT and then patient converted back to ST where he has been all shift. Received another call from telescope maintenance that the patient had a heart rate of 195 BPM. Patient is asymptomatic at this time and is lying in bed picking at his blankets. Hospitalist paged and aware.
--- NOTE | 2016-12-22 17:05 | DRSVH ---
PROCEDURE: X-RAY CHEST ONE VIEW, PORTABLE ([id number]) INDICATIONS: fever, cough TECHNIQUE: One view of the chest was acquired. COMPARISON: 12/18/2016 FINDINGS: Surgical changes and devices: Median sternotomy. Lungs and pleura: No pleural effusions or pneumothorax. Lungs are clear. There is elevation of the right hemidiaphragm and superimposition of bowel over the liver. Mediastinum: Mediastinal contours appear normal. Heart size is normal. Mild aortic calcifications. Bones and chest wall: No suspicious bony lesions. Overlying soft tissues appear unremarkable. IMPRESSION: No acute pulmonary abnormality Dictated by: Malik Jenkins M.D. on 12/22/2016 at 17:01 Approved by: Malik Jenkins M.D. on 12/22/2016 at 17:03
[2016-12-22] MEDS: risperiDONE 1 mg Tablet PO SCH (17:27)
[2016-12-22 17:44] LABS: APPEARANCE,URINE HAZY (CLEAR,HAZY); COLOR,URINE YELLOW (YELLOW); PH,URINE 5.5 (5.0-8.0)
[2016-12-22 17:45] LABS: OCCULT BLOOD,URINE MODERATE (NEGATIVE)
[2016-12-23] VITALS (13 sets, daily range): BP systolic 103–140; BP diastolic 60–96; PULSE 71–170; RESP 14–24; O2SAT 94–100
[2016-12-23] MEDS: Sodium Chloride LOK Flush 10 mL Syringe IV SCH ×4 (00:25→23:37)
--- NOTE | 2016-12-23 00:52 | NUR ---
Tele studio technician video operator reported episodes of ST, Hr to 150's then back down to 80's. Noted that Pt has tremors and verified appears to be in time with spikes. At 2355 monitoring tech reported Pt has onset of Afib, HR 150-180's. EKG ordered/completed and MD paged. Waiting response
[2016-12-23] MEDS ORDERED: MeTOProlol 1 mg/mL 5 mL Inj ONE ×2 (01:02→02:32)
[2016-12-23] MEDS ORDERED: Digoxin 0.25 mg/mL 2 mL Inj IV ONE (01:25)
[2016-12-23] MEDS: HYDROmorphone 0.5 mg/0.5 mL iSecure Syringe IVPUSH PRN ×5 (02:06→20:47)
[2016-12-23 03:24] LABS: BASOPHILS % (AUTO) 0.2 % (0-3); EOSINOPHILS % (AUTO) 3.1 % (0-5); MONOCYTES % (AUTO) 17.6 % (4-12); NEUTROPHILS % (AUTO) 67.2 % (40-74); Platelet Count 174 bil/L (150-400)
[2016-12-23] MEDS ORDERED: Diltiazem 5 mg/mL 5 mL Inj IV ONE (03:40)
[2016-12-23] MEDS: Diltiazem 125 mg/125 mL D5W IV SCH ×2 (03:44)
[2016-12-23] MEDS: 0.9% Sodium Chloride 1,000 ML IV SCH (03:45)
--- NOTE | 2016-12-23 04:01 | NUR ---
Transfer Pt continued in Afib HR 130-160. Metoprolol 5mg IV pushed x2 and Digoxin 5mg IV pushed. Pt rate remained uncontrolled. Pt transferred to [facility] at 0250, report given to Feli FINCH. Pt had no belongings in room. Family notified
--- NOTE | 2016-12-23 04:54 | NUR ---
Cardiac: Pt transferred to [facility] room 2025, report received prior to transfer. Pt placed on Mp30- noted to be Afib 120-160s. Discussed plan of care with Dr. Mcdonald. - order received for Cardizem 5mg IVP and then to start patient on Cardizem gtt. Med given as ordered- shortly after gtt started pt converted to SR 80-90s. Gtt continues @5mg/hr- BP 130s/90s.
[2016-12-23] MEDS: Pantoprazole 40 mg ER24 Tablet PO SCH (08:30)
--- NOTE | 2016-12-23 08:59 | NUR ---
Faxed clinicals to Tatyana at [facility] per BATTERY CONTAINER FINISHING [employer] request Addendum: 12/23/16 at 1615 by ANASTASIIA LOZANO Called and spoke with Tatyana she did receive the clinicals and she will be available on Wednesday to come in and do the bedside assessment. Patient will need to be at minimum two person assist chair before returning. They would not be able to have him return and be on bedrest. Updated [employer]ISH[employer]
--- NOTE | 2016-12-23 09:49 | PCM.PNORTH ---
Subjective Date of Service: Dec 23, 2016 Visit Information: Reason for Visit R Hip Fracture Surgery/Surgery Date R HIP BIPOLAR HEMIARTHROPLASTY 12/21/16 Post-Op Day # 2 Date of Admission: Dec 19, 2016 at 01:53 Hospital Day # Subjective Patient has severe dementia and is unable to answer questions Postop General: No Complaints Pain Management: PO Objective Exam Objective Patient is seen in bed. He is not oriented to place or time. He occasionally responds to his name. Vital Signs and I/O Vital Sign - Last Date Time Temp Pulse Resp B/P Pulse Ox O2 Delivery O2 Flow Rate FiO2 12/23/16 09:14 82 20 137/69 95 Room Air 12/23/16 03:04 37.1 12/21/16 15:49 2.00 Intake and Output 12/22/16 12/22/16 12/23/16 Cumulative From/Thru 15:00 23:00 07:00 12/18/16 23:05 - 12/23/16 06:24 Intake Total 417 ml 354 ml 572 ml 6497 ml Output Total 200 ml 600 ml 1575 ml Balance 417 ml 154 ml -28 ml 4922 ml Intake Oral 354 ml 0 ml 414 ml IV Total 417 ml 572 ml 6083 ml Output Urine Total 200 ml 600 ml 1425 ml Estimated Blood Loss 150 ml # Voids 14 # Bowel Movements 0 0 0 Lab & Micro Results Laboratory Tests Test 12/22/16 17:02 12/22/16 17:24 12/23/16 03:10 Hold Stevenson Top Tube Received (Received) Received (Received) Urine Color Yellow (YELLOW) Urine Appearance Hazy (CLEAR,HAZY) Urine pH 5.5 (5.0-8.0) Urine Specific Corbett 1.030 (1.003-1.035) Urine Protein Tracemg/dL (NEG,TRACE) Urine Glucose (UA) Negativemg/dL (NEGATIVE) Urine Ketones 15mg/dL (NEGATIVE) Urine Occult Blood Moderate (NEGATIVE) Urine Nitrite Negative (NEGATIVE) Urine Bilirubin Negative (NEGATIVE) Urine Urobilinogen 1.0mg/dL (NORMAL) Urine Leukocyte Esterase Trace (NEGATIVE) Urine RBC 3-10/hpf (0-2) Urine WBC 0-5/hpf (0-5) Urine Epithelial Cells Few/hpf (NONE-MOD) Urine Crystals None seen (NONE SEEN) Urine Bacteria Few/hpf (NONE-FEW) Urine Hyaline Casts None/lpf (NONE) Urine Granular Casts None seen (NONE SEEN) Urine Waxy Casts None seen (NONE SEEN) Urine Red Blood Cell Casts None seen (NONE SEEN) Urine White Blood Cell Casts None seen (NONE SEEN) Urine Mucus Present (None Seen) Urine Trichomonas None seen (NONE SEEN) Urine Yeast None (NONE SEEN) Urinalysis Comment None Urine Culture Reflexed Indicated White Blood Count 8.1th/mm3 (3.8-10.1) Red Blood Count 3.78mil/mm3 (4.40-5.80) Hemoglobin 12.1g/dL (13.8-17.2) Hematocrit 34.4% (41.0-50.0) Mean Corpuscular Volume 91.0fL (81-100) Mean Corpuscular Hemoglobin 32.0pg (27.0-35.0) Mean Corpuscular Hemoglobin Concent 35.2% (32.0-37.0) Red Cell Distribution Width 12.8% (12.3-15.4) Platelet Count 174bil/L (150-400) Neutrophils (%) (Auto) 67.2% (40-74) Lymphocytes (%) (Auto) 11.7% (14-46) Monocytes (%) (Auto) 17.6% (4-12) Eosinophils (%) (Auto) 3.1% (0-5) Basophils (%) (Auto) 0.2% (0-3) Sodium Level 143mEq/L (134-144) Potassium Level 4.1mEq/L (3.5-5.2) Chloride Level 107mEq/L (97-108) Carbon Dioxide Level 22mmol/L (18-29) Blood Urea Nitrogen 14mg/dL (8-27) Creatinine 0.78mg/dL (0.76-1.27) Estimat Glomerular Filtration Rate 104mL/min (>59) Glucose Level 122mg/dL (60-99) Calcium Level 8.5mg/dL (8.5-10.1) Procalcitonin 0.09ng/mL (0.00-0.08) Microbiology 12/22/16 Blood Culture, Received Pending 12/22/16 Urine Culture - Preliminary, Resulted No growth to date Result Diagram: 9/6/17 0310 9/6/17 0310 Extremities: Distal Pulses Palpable, No Compartment Syndrom Noted, Thigh & Calf Soft/Nontender Postop Sensory Motor: Distal Motor Intact, Distal Sensation Intact, NVI Distally SURGICAL WOUND : Wound Location/Description Right hip: Surgical dressing is removed. There is mild ecchymosis present. There is minimal serous drainage. There is no erythema present. The wound is closed with pierre. The wound is cleansed with hydrogen peroxide and dressed with Island dressings Activity: Activity per PT Assessment & Plan Impression POD #2 Right hip hemiarthroplasty Problems: Plan Weightbearing: Weightbearing as tolerated with walker DVT prophylaxis: Lovenox 40 mg subcutaneous 3 weeks followed by aspirin 325 mg twice a day 3 weeks Physical therapy for transfers, progressive ambulation, therapeutic exercise Wound care: dressing changed today by PA to island dressing. Change dressing every 2-3 days or sooner if saturated. Discharge plan: Discharge in 1-2 days to SNF for PT/OT, nursing care. Follow-up plan: In 2 weeks at [facility] with PA for wound check and at [address] Silvestre with x-rays Pain Management: Tylenol, Dilaudid VTE Prophylaxis: Sub-Q Enoxaparin, SCDs Resuscitation Status: CPR: Attempt Resuscitation BlackshearRaquel Marc PA-C Dec 23, 2016 09:49
--- NOTE | 2016-12-23 10:28 | NUR ---
Rounds Pt stable this am with pain controlled with dilaudid, SR 70s to 80s and stable BPs with continued dilt drip at 5mg/hr, MD aware and will continue treatment. Care team aware that patient has been bedrest with plan for PT to attempt further work with patient. Hip precautions in place to include wedge. Care team/MD notified that pt spits out whole pills, if possible to transition to meds that can be crushed. Family at bedside. WCTM.
--- NOTE | 2016-12-23 13:17 | NUR ---
NUTRITION ASSESSMENT Assess: 71 YO M admitted for R hip fracture, now POD #2 R hip hemiarthroplasty. Pt has had poor PO X 4 days. Pt with severe dementia. PMHX: CAD, hypercholesterolemia, expressive aphagia, PVD, AAA, GERD, HLD, HTN, dementia. DIET: General. PO intake mostly bites. LABS: Glu 122 MEDICATIONS: Reviewed. GI: No BM noted. SKIN: No issues noted. ANTHROPOMETRICS: Wt: 87.8 kg, BMI 27.0 kg/m2, Admit wt: 87.8 kg. ESTIMATED NEEDS: Calories: 0587-8157 kcal/day (25-30 kcal/kg BW) Protein: 88-105 g/day (1.0-1.2 g/kg BW) NUTRITION DIAGNOSIS: 1) Inadequate oral intake related to decreased ability to consume sufficient energy as evidenced by poor PO X 4 days. INTERVENTION: 1) Will add supplements to encourage adequate nutrition. MONITOR/EVALUATE: PO intake, diet tolerance, labs, weight, GI/nutrition status. Follow per moderate nutrition risk guidelines.
--- NOTE | 2016-12-23 14:16 | NUR ---
Cinthya Freeman dc'd per MD. Per MD no need for oral transition. Pt SR 72. BP stable. Family at bedside.
--- NOTE | 2016-12-23 16:09 | NUR ---
Social Work: Continued Discharge Planning/Multidisciplinary Rounds D: Pt discussed in multidisciplinary rounds; the patient is a transfer from [facility] for rate control. Pt is a resident at [facility] and has baseline dementia. Pt had a fall at [facility] resulting in a R Hip Fracture thus requiring his admission to [facility]. The patient is POD#2 and currently total assist for care. Pt's dementia and need for a sitter is a barrier to SNF discharge. Case management is working on a plan for the patient to return to [facility] with home health as pt will likely not be appropriate for SNF due to difficulty retaining the teachings at SNF. Utliziation Specialist has faxed clinicals to [facility] for review, confirmation received that they have received these. Per [facility] e learning coordinator, Tatyana, she will come to complete a bedside assessment with the patient on Wednesday12/25/16. The patient must be able to transfer 2PA from bed to chair at discharge to come back to the facility. t/c from patient's son, Sj. He is requesting update on placement for his dad. CONTINUOUS DRIER OPERATOR informed him of barriers to d/c to SNF and of the plan to get the patient back to [facility] with home health services. He agrees with this plan. A: Pt who has baseline dementia and lives at [facility]. P: Evolving; Anticipate the patient to return to [facility] pending bedside assessment (Wednesday12/25/16) and pt's clinical course. CONTINUOUS DRIER OPERATOR to continue to follow to coordinate discharge plan. ALICIA Gomez
[2016-12-23] MEDS: risperiDONE 1 mg Tablet PO SCH (17:44)
--- NOTE | 2016-12-23 19:06 | PCM.PNMED ---
Subjective Date of Service Dec 23, 2016 Subjective No overnight event. patient stable. Family at bedside, noted that patient is near baseline. Sitter and restraints has been d/c. Patient converted to normal sinus this am. Off diltiazem drip. Exam Vital Signs Vital Sign - Last Date Time Temp Pulse Resp B/P Pulse Ox O2 Delivery O2 Flow Rate FiO2 12/23/16 16:41 37.4 71 18 140/71 96 Room Air 12/21/16 15:49 2.00 Intake and Output 12/22/16 12/22/16 12/23/16 Cumulative From/Thru 15:00 23:00 07:00 12/18/16 23:05 - 12/23/16 06:24 Intake Total 417 ml 354 ml 572 ml 6497 ml Output Total 200 ml 600 ml 1575 ml Balance 417 ml 154 ml -28 ml 4922 ml Intake Oral 354 ml 0 ml 414 ml IV Total 417 ml 572 ml 6083 ml Output Urine Total 200 ml 600 ml 1425 ml Estimated Blood Loss 150 ml # Voids 14 # Bowel Movements 0 0 0 Exam General: no evident of acute distress. not tachycardia, no grimaces. HEENT: Normocephalic, atraumatic. PERRLA, EOMI, Anicteric sclerae, moist conjunctivae. Neck: No JVD, No bruits. No lymphadenopathy or thyromegaly. Cardiovascular: Regular rate and rhythm with no murmurs, rubs, or gallops appreciated Pulmonary: b/l air sound with no crackles, wheezes, or rhonchi. no use of accessory muscles. Abdomen: +Bowel sound, Soft, nontender, nondistended. Extremities: No clubbing or cyanosis, no lymphedema, no b/l lower leg edema Skin: Normal temperature, turgor, and texture; no rash. No visualized skin ulcer. Neurological: CN II-VII grossly intact, awake, eyes spontaneous open. not alert or oriented Lab and Diagnostics Result Diagram: 12/23/16 0310 12/23/16 0310 X-Rays, CTs and MRIs Right hip x-ray 12/18/16 Broken right hip that appears to be at the surgical neck Brain CT 12/18/16 Impression: No acute intracranial traumatic abnormality. Transmitted to the ED at 00:05 by Ilana Okeefe M.D. Cervical spine CT 12/18/16 IMPRESSION: No acture fractures or malalignment in the cervical spine. Transmitted to the ED at 00:06 by Ilana Okeefe M.D 12-lead ECG ECG Interpretation: Sinus rhythm with a rate of 79 Atrial premature complex Nonspecific intraventricular conduction delay Inferior infarct, old Time: 01:45 Interpreted by: ED physician Assessment & Plan Niall De La Rosa is a demented 71-year-old male with past medical history significant for CAD, AAA, hyperlipidemia, hypertension that presented to the ED via EMS due to an unwitnessed ground-level fall on 12/18/2016. He recently moved from home to [facility] as his was unable to care for his increasing dementia and agitation. Afib, present on admission, stable -likely 2nd to pain -pain control, currently in normal sinus -telemetry monitoring -consider dilt drip should patient convert to afib with RVR 110 Acute Right Fracture of the femoral head, present on admission. active. - surgical repair; 12/21/16 - Dilaudid IV 0.5mg prn q4 for pain - lovenox per ortho - physicial therapy starting today Dementia with agitation, present on admission. Chronic. stable. - Pt recently moved to [facility] due to decline in function and increased agitation - Brain CT negative - see Psychiatric recommendations note (12-10-16, Dr. Moran) from last visit here will follow their recommendations: - reduce prosac to 20 - Risperidone 0.5 HS, can add during day for sever aggetation - stop seroquel - prn IV ativan for aggitation Coronary Artery Disease s/p 3 vessel CABG, present on admission. stable. - Continue home Aspirin 81 mg daily. - Continue home Sub lingual nitro prn chest pain. Hypertension, present on admission. stable. - Continue Losartan 25 mg daily. - Continue Metoprolol succinate 12.5 mg twice daily. Hyperlipidemia , present on admission. stable. - Continue Rosuvastain 20 mg daily. - Continue Niacin 3000 Mg HS. Depression, present on admission. stable. - Continue fluoxetine 40 mg daily GERD, present on admission. stable. - Continue Lansoprazole 30 mg daily Disposition; - pcp is Dr. Nguyễn - had just moved into [facility] befor this admission (3 days), present plan is to discharge possibly [facility] Patient status: Patient is admitted under inpatient status with expected length of stay greater than 2 midnights due to severity of presenting symptoms, risk of adverse event, and complexity of treatment plan. GI Prophylaxis: Proton Pump Inhibitor VTE Prophylaxis: Sub-Q Enoxaparin, SCDs VTE Mechanical Devices: Intermittant Pneumatic CD Resuscitation Status: CPR: Attempt Resuscitation Time spent I interviewed and examined the patient on rounds today. A. fib now stabilizing. Encephalopathy seems to be improving but will impede rehabilitation efforts. We will try to avoid using sedative medications. I agree with the assessment and plan as stated above. Won Head DO Dec 23, 2016 19:06 Geovanny Hope MD Dec 24, 2016 07:54
[2016-12-24] VITALS (10 sets, daily range): BP systolic 124–151; BP diastolic 64–105; PULSE 63–160; RESP 12–24; O2SAT 95–98
[2016-12-24] MEDS: 0.9% Sodium Chloride 1,000 ML IV SCH (01:24)
[2016-12-24] MEDS: Diltiazem 125 mg/125 mL D5W IV SCH ×2 (03:29)
[2016-12-24] MEDS: HYDROmorphone 0.5 mg/0.5 mL iSecure Syringe IVPUSH PRN ×6 (03:37→23:48)
[2016-12-24 04:01] LABS: Mean Corpuscular Hemoglobin 31.7 pg (27.0-35.0); Mean Corpuscular Volume 92.2 fL (81-100)
[2016-12-24 04:21] LABS: Magnesium 2.1 mg/dL (1.6-2.6)
--- NOTE | 2016-12-24 04:51 | NUR ---
Pain/Tele Pt non-verbal and will display facial grimacing, body bracing, and moaning for s/sx of pain. FELDT pain score 3 x 2, so pt given Dilaudid IVP x 2 for pain management which appears to have reduced the distress. Pt also given senna 17.2mg for constipation, but he spit some out and will possibly need a suppository this AM if no results. Tele: SR 68. VSS. 1:1 sitter in room for safety due to impulsiveness. Care continues.
[2016-12-24] MEDS: Sodium Chloride LOK Flush 10 mL Syringe IV SCH ×3 (08:30→23:47)
--- NOTE | 2016-12-24 10:27 | NUR ---
Altagracia KENYON notified that pt would not take po meds this am, including beta reynaldo. Will monitor and address needs. requests that buitrago catheter be dc'd. Will dc today. Pt VSS, tele stable.
--- NOTE | 2016-12-24 11:12 | PCM.PNORTH ---
Subjective Date of Service: Dec 24, 2016 Visit Information: Reason for Visit R Hip Fracture Surgery/Surgery Date R HIP BIPOLAR HEMIARTHROPLASTY 12/21/16 Post-Op Day # Date of Admission: Dec 19, 2016 at 01:53 Hospital Day # Subjective Status post day #3 right hip bipolar hemiarthroplasty. Patient is noncommunicative. Patient advocate watching patient states that his pain seems to be okay today and he has been a little more compliant and not wiggling around as much as the first day or 2. Postop General: No Complaints Pain Management: PO Objective Exam Objective Patient is not alert or oriented. Severe dementia. Not answering any Answering questions. Patient is sitting up in the bed and not in acute distress today. Continuing to wear the abduction pillow Dressing is clean dry and intact. Calf is soft and nontender. Sensation and pulses intact, patient able to wiggle toes. Vital Signs and I/O Vital Sign - Last Date Time Temp Pulse Resp B/P Pulse Ox O2 Delivery O2 Flow Rate FiO2 12/24/16 07:19 36.9 72 20 151/64 98 Room Air 12/21/16 15:49 2.00 Intake and Output 12/23/16 12/23/16 12/24/16 Cumulative From/Thru 14:59 22:59 06:59 12/18/16 23:05 - 12/24/16 06:21 Intake Total 1001 ml 574 ml 8072 ml Output Total 600 ml 400 ml 2575 ml Balance 401 ml 174 ml 5497 ml Intake Oral 566 ml 50 ml 1030 ml IV Total 435 ml 524 ml 7042 ml Output Urine Total 600 ml 400 ml 2425 ml Estimated Blood Loss 150 ml # Voids 14 # Bowel Movements 0 0 0 Lab & Micro Results Laboratory Tests Test 12/24/16 03:35 White Blood Count 7.4th/mm3 (3.8-10.1) Red Blood Count 3.57mil/mm3 (4.40-5.80) Hemoglobin 11.3g/dL (13.8-17.2) Hematocrit 32.9% (41.0-50.0) Mean Corpuscular Volume 92.2fL (81-100) Mean Corpuscular Hemoglobin 31.7pg (27.0-35.0) Mean Corpuscular Hemoglobin Concent 34.3% (32.0-37.0) Red Cell Distribution Width 12.7% (12.3-15.4) Platelet Count 154bil/L (150-400) Sodium Level 141mEq/L (134-144) Potassium Level 3.9mEq/L (3.5-5.2) Chloride Level 104mEq/L (97-108) Carbon Dioxide Level 23mmol/L (18-29) Blood Urea Nitrogen 14mg/dL (8-27) Creatinine 0.57mg/dL (0.76-1.27) Estimat Glomerular Filtration Rate 149mL/min (>59) Glucose Level 114mg/dL (60-99) Calcium Level 8.3mg/dL (8.5-10.1) Magnesium Level 2.1mg/dL (1.6-2.6) Microbiology 12/22/16 Blood Culture - Preliminary, Resulted NO GROWTH AFTER 24 HOURS 12/22/16 Urine Culture - Final, Complete No growth (<1,000 organisms/mL) Result Diagram: 12/24/1633412/24/16334 Activity: Activity per PT Assessment & Plan Impression Patient is status post day #3 right hip bipolar hemiarthroplasty. Hip appears stable, wearing a hip abduction pillow. Appears to be doing okay as far as pain is concerned. Problems: Plan Weightbearing: Weightbearing as tolerated with walker DVT prophylaxis: Lovenox 40 mg subcutaneous 3 weeks followed by aspirin 325 mg twice a day 3 weeks Physical therapy for transfers, progressive ambulation, therapeutic exercise Wound care: dressing changes as needed if saturating. Orthopedics will sign off at this point. Recommendation will be to use abduction pillow in bed if not able to be watched for maintenance of posterior hip precautions at all times during the next 6 weeks. Discharge plan: Discharge to SNF for PT/OT, nursing care. Follow-up plan: In 2 weeks at [facility] with ESSIE for wound check and at [address] Silvestre with x-rays VTE Prophylaxis: Sub-Q Enoxaparin, SCDs Resuscitation Status: CPR: Attempt Resuscitation Brenden Escalante PA-C Dec 24, 2016 11:11
--- NOTE | 2016-12-24 13:36 | PCM.PNMED ---
Subjective Date of Service Dec 24, 2016 Subjective Pt slightly more alert, was observed to follow some commands. Able to recognize . Physical therapy noted however, patient continued to be verbally unintelligible and unable to follow commands. Patient has has a sitter , though has not received any sedating of medication including haloperidol for agitation. states patient had near baseline. Per nursing, patient refuses to swallow medication. Unable to complete full review of systems secondary to patient's mentation. Exam Vital Signs Vital Sign - Last Date Time Temp Pulse Resp B/P Pulse Ox O2 Delivery O2 Flow Rate FiO2 12/24/16 11:28 36.7 72 15 131/69 95 Room Air 12/21/16 15:49 2.00 Intake and Output 12/23/16 12/23/16 12/24/16 Cumulative From/Thru 15:00 23:00 07:00 12/18/16 23:05 - 12/24/16 06:21 Intake Total 1001 ml 574 ml 8072 ml Output Total 600 ml 400 ml 2575 ml Balance 401 ml 174 ml 5497 ml Intake Oral 566 ml 50 ml 1030 ml IV Total 435 ml 524 ml 7042 ml Output Urine Total 600 ml 400 ml 2425 ml Estimated Blood Loss 150 ml # Voids 14 # Bowel Movements 0 0 0 Exam General: No acute distress, appropriately interactive HEENT: Normocephalic, atraumatic. PERRLA, EOMI, Anicteric sclerae, moist conjunctivae. Neck: No JVD, No bruits. No lymphadenopathy or thyromegaly. Cardiovascular: Regular rate and rhythm with no murmurs, rubs, or gallops appreciated Pulmonary: b/l air sound with no crackles, wheezes, or rhonchi. no use of accessory muscles. Abdomen: +Bowel sound, Soft, nontender, nondistended. Extremities: No clubbing or cyanosis, no lymphedema, no b/l lower leg edema Skin: Normal temperature, turgor, and texture; no rash. No visualized skin ulcer. Neurological: CN II-VII grossly intact, alert, but is unintelligible words, cannot follow commands. No signs of acute distress or pain Lab and Diagnostics Result Diagram: 12/24/16 0335 12/24/16 033 X-Rays, CTs and MRIs Right hip x-ray 9/1/17 Broken right hip that appears to be at the surgical neck Brain CT 12/18/16 Impression: No acute intracranial traumatic abnormality. Transmitted to the ED at 00:05 by Ilana Okeefe M.D. Cervical spine CT 12/18/16 IMPRESSION: No acture fractures or malalignment in the cervical spine. Transmitted to the ED at 00:06 by Ilana Okeefe M.D 12-lead ECG ECG Interpretation: Sinus rhythm with a rate of 79 Atrial premature complex Nonspecific intraventricular conduction delay Inferior infarct, old Time: 01:45 Interpreted by: ED physician Assessment & Plan Niall De La Rosa is a demented 71-year-old male with past medical history significant for CAD, AAA, hyperlipidemia, hypertension that presented to the ED via EMS due to an unwitnessed ground-level fall on 12/18/2016. He recently moved from home to [facility] as his was unable to care for his increasing dementia and agitation. New Afib, present on admission, resolved -likely 2nd to pain -pain control, currently in normal sinus -telemetry monitoring -consider dilt drip should patient convert to afib with RVR 110 Acute Right Fracture of the femoral head, present on admission. active. - surgical repair; 12/21/16 - Dilaudid IV 0.5mg prn q4 for pain - Lovenox per ortho - physical therapy starting today Dementia with agitation, present on admission. Chronic. stable. -Severe, demonstrated end-stage 7E, unable to smile -Pt recently moved to [facility] due to decline in function and increased agitation -Brain CT negative -see Psychiatric recommendations note (12-10-16, Dr. Moran) from last visit here will follow their recommendations: -reduce prosac to 20 -Risperidone 0.5 HS, can add during day for sever aggression -stop Seroquel -prn IV Ativan for agitation -patient currently DNR, tube feed ok on polst. -palliative care consultation Coronary Artery Disease s/p 3 vessel CABG, present on admission. stable. - Continue home Aspirin 81 mg daily. - Continue home Sub lingual nitro prn chest pain. Hypertension, present on admission. stable. - Continue Losartan 25 mg daily. - Continue Metoprolol tartrate 25 mg twice daily. Hyperlipidemia , present on admission. stable. - Continue Rosuvastain 20 mg daily. - Continue Niacin 3000 Mg HS. Depression, present on admission. stable. - Continue fluoxetine 40 mg daily GERD, present on admission. stable. - Continue Lansoprazole 30 mg daily Disposition; - pcp is Dr. Nguyễn - had just moved into for this admission (3 days), difficult discharge given that patient most likely unable to participate in any self care. Ideally, patient should be admitted into a memory care. GI Prophylaxis: Proton Pump Inhibitor VTE Prophylaxis: Sub-Q Enoxaparin, SCDs VTE Mechanical Devices: Intermittant Pneumatic CD Resuscitation Status: CPR: Attempt Resuscitation Time spent 35 minutes Attending Statement I examined the patient on rounds today. I counseled his at bedside regarding prognosis of hip fracture with dementia. Encouraged her to consider palliative care consultation. I agree with the assessment and plan as stated above. Won Head DO Dec 24, 2016 13:36 Geovanny Hope MD Dec 24, 2016 16:42
[2016-12-24] MEDS: risperiDONE 1 mg Tablet PO SCH (16:36)
[2016-12-24] MEDS ORDERED: MeTOProlol 1 mg/mL 5 mL Inj IVPUSH ONE (20:40)
--- NOTE | 2016-12-24 21:15 | NUR ---
Afib RVR: P: During the initial assessment, the pt was noted to have a rapid, irregular heart beat per auscultation. I: Pt placed on a MP30 and noted to be in Afib with RVR; HR up to the 160s to 180s. ECG obtained to confirm arrhythmia. Dr. Garcia notified and new orders obtained for continued telemetry monitoring and a one time IVP of 5 mg Metoprolol. E: Pt converted back to SR with frequent PACs at approximately 2109 per teletypewriter operator. Will cont. to closely monitor.
[2016-12-25] VITALS (10 sets, daily range): BP systolic 134–147; BP diastolic 66–80; PULSE 61–79; RESP 12–23; O2SAT 94–98
[2016-12-25] MEDS: Diltiazem 125 mg/125 mL D5W IV SCH ×2 (01:10)
[2016-12-25] MEDS: HYDROmorphone 0.5 mg/0.5 mL iSecure Syringe IVPUSH PRN ×5 (03:54→23:48)
--- NOTE | 2016-12-25 06:18 | NUR ---
Rhythm and Rate/: Pt remained in a SR to SB; HR 50s to 60s with frequent PACs. Pt medicated with IV dilaudid when turning to the right side. Island dressing changed this am. Pt stable.
--- NOTE | 2016-12-25 08:39 | NUR ---
Palliative Care Palliative Care received order from Dr Head 12/24/16 (late) to assist with goals of care. Patient admitted 12/19/16. Palliative Care to follow. Spoke with this morning, FCTM set for 11 a.m. today. Traci Larson
[2016-12-25] MEDS: Sodium Chloride LOK Flush 10 mL Syringe IV SCH ×3 (10:11→23:48)
--- NOTE | 2016-12-25 10:43 | PCM.PNMED ---
Subjective Date of Service Dec 25, 2016 Subjective Patient is a 71yom w/ significant hx of severe dementia, suffered a ground level fall with Right hip fracture, received right hip replacement, developed paroxysmal afib, medically stable, pending discharge. Pleasantly confused. Patient smiled today. Over night, patient noted 1 episode of afib, 1x labetalol given with good effect. Currently on telemetry normal sinus. Nursing states patient have been refusing medication. Unable to complete a review of system due to mentation. Exam Vital Signs Vital Sign - Last Date Time Temp Pulse Resp B/P Pulse Ox O2 Delivery O2 Flow Rate FiO2 12/25/16 09:37 Supplement Oxygen 12/25/16 09:27 37.2 71 17 145/67 94 12/21/16 15:49 2.00 Intake and Output 12/24/16 12/24/16 12/25/16 Cumulative From/Thru 15:01 23:01 07:01 12/18/16 23:05 - 12/25/16 06:56 Intake Total 200 ml 100 ml 8372 ml Output Total 750 ml 3325 ml Balance -550 ml 100 ml 5047 ml Intake Oral 200 ml 100 ml 1330 ml IV Total 7042 ml Output Urine Total 750 ml 3175 ml Estimated Blood Loss 150 ml # Voids 2 3 19 # Bowel Movements 0 0 0 Exam General: No acute distress, appropriately interactive HEENT: Normocephalic, atraumatic. PERRLA, EOMI, Anicteric sclerae, moist conjunctivae. Neck: No JVD, No bruits. No lymphadenopathy or thyromegaly. Cardiovascular: Regular rate and rhythm with no murmurs, rubs, or gallops appreciated Pulmonary: b/l air sound with no crackles, wheezes, or rhonchi. no use of accessory muscles. Abdomen: +Bowel sound, Soft, nontender, nondistended. Extremities: No clubbing or cyanosis, no lymphedema, no b/l lower leg edema Skin: Normal temperature, turgor, and texture; no rash. No visualized skin ulcer. Neurological: CN II-VII grossly intact, alert, smiling, unintelligible language Lab and Diagnostics Result Diagram: 12/24/16 0335 12/25/16 0720 X-Rays, CTs and MRIs Right hip x-ray 12/18/16 Broken right hip that appears to be at the surgical neck Brain CT 12/18/16 Impression: No acute intracranial traumatic abnormality. Transmitted to the ED at 00:05 by Ilana Okeefe M.D. Cervical spine CT 12/18/16 IMPRESSION: No acture fractures or malalignment in the cervical spine. Transmitted to the ED at 00:06 by Ilana Okeefe M.D 12-lead ECG ECG Interpretation: Sinus rhythm with a rate of 79 Atrial premature complex Nonspecific intraventricular conduction delay Inferior infarct, old Time: 01:45 Interpreted by: ED physician Assessment & Plan Niall De La Rosa is a demented 71-year-old male with past medical history significant for CAD, AAA, hyperlipidemia, hypertension that presented to the ED via EMS due to an unwitnessed ground-level fall on 12/18/2016. He recently moved from home to [facility] as his was unable to care for his increasing dementia and agitation. Dementia with agitation, present on admission. Chronic. stable. -Severe, demonstrated near -Pt recently moved to [facility] due to decline in function and increased agitation -Brain CT negative -see Psychiatric recommendations note (12-10-16, Dr. Moran) from last visit here will follow their recommendations: -reduce prosac to 20 -Risperidone 0.5 HS, can add during day for sever aggression -stop Seroquel -prn IV Ativan for agitation -Per palliative care family meeting, patient placed on hospice. -awaits for hospice info visit Acute Right Fracture of the femoral head, present on admission. stable - surgical repair; 12/21/16 - Dilaudid IV 0.5mg prn q4 for pain - Per Ortho - DVT propylaxis: Lovenox 40 mg subcutaneous 3 weeks followed by aspirin 325 mg twice a day 3 weeks New Paroxysmal Afib, present on admission, on going -likely 2nd to pain -pain control, currently in normal sinus -telemetry monitoring -consider metoprolol IV push with HR >110 Coronary Artery Disease s/p 3 vessel CABG, present on admission. stable. - Continue home Aspirin 81 mg daily. - Continue home Sub lingual nitro prn chest pain. Hypertension, present on admission. stable. - Continue Losartan 25 mg daily. - Continue Metoprolol tartrate 25 mg twice daily. Hyperlipidemia , present on admission. stable. - Continue Rosuvastain 20 mg daily. - Continue Niacin 3000 Mg HS. Depression, present on admission. stable. - Continue fluoxetine 40 mg daily GERD, present on admission. stable. - Continue Lansoprazole 30 mg daily Disposition; - pcp is Dr. Nguyễn [facility] anticipate discharge to hospice, possibly home first. GI Prophylaxis: Proton Pump Inhibitor VTE Prophylaxis: Sub-Q Enoxaparin, SCDs VTE Mechanical Devices: Intermittant Pneumatic CD Resuscitation Status: CPR: Attempt Resuscitation Time spent 30 minutes Attending Statement I interviewed and examined the patient on rounds today. Mental status not sufficient for significant rehabilitation. Agree with counseling family to consider palliative care. I agree with the assessment and plan as stated above. Won Head DO Dec 25, 2016 10:43 Geovanny Hope MD Dec 25, 2016 18:26
--- NOTE | 2016-12-25 10:55 | NUR ---
spiritual care: staff/rounds introductory visit with pt and Lela. Pt calling out apparently in pain. nurse notified. family anticipating pall care visit, unsure of what to expect from this; expressed hopes for pt's improvement to return to [facility]. per , pt very adventism and would appreciate prayer when he is more comfortable.
--- NOTE | 2016-12-25 13:36 | NUR ---
Social Work: Continued Discharge Planning/Multidisciplinary Rounds D: Pt discussed in multidisciplinary rounds; the patient is not eating, refusing medications and is not participating with PT. Palliative care has been referred for goals of care. Pt has very advanced dementia and this may be an end-of-life event. Palliative care provider has met with the patient's at bedside. She is interested in a hospice informational visit. Pt has been referred to hospice for an informational visit. The info visit time has yet to be determined. ALICAI spoke with Tatyana clinical liason from [facility]. She is still very concerned about the patient returning in his present condition. TRUCK MECHANIC APPRENTICE informed her that the family is considering hospice. She agrees with this plan and states that if the patient goes on hospice they can accept him back. They are unable to admits over the weekend and will need hospice to open on the day of admission. TRUCK MECHANIC APPRENTICE will update her with the plan for this patient as soon as more information is received. A: Pt who with advanced dementia and a resident at [facility]. P: Evolving; TRUCK MECHANIC APPRENTICE to follow up with hospice to determine time for informational visit and to coordinate discharge with [facility] if the patient's family signs consents ALICIA Gomez Addendum: 12/25/16 at 1719 by ANOOP DOYLE yaima/arely from Denae at [facility]; they can do an informational visit tomorrow at 10:00am with the . They will contact her to confirm this time.
--- NOTE | 2016-12-25 16:00 | PCM.CONPAL ---
Date of Service Dec 25, 2016 Date of Hospital Admission: Dec 19, 2016 at 01:53 Date of Palliative Consult: Dec 25, 2016 Requesting Provider: Won Head DO Reason Palliative Care Consult: Goals of Care Discussion Reason for Consultation Palliative Care received order from Dr Head 12/24/16 (late) to assist with goals of care. Patient admitted 12/19/16. Palliative Care to follow. Spoke with this morning, FCTM set for 11 a.m. today. Hospital Unit @time of consult: Progressive Care (room 2025) Palliative Care Recommendation Summary of palliative recommendations: Family Conference Team Meeting: Today, Gabriel Leroy and Jono met with Mrs. Lela De La Rosa and her 's son Sj (who was on speakerphone). 1. Patient's Functional Baseline: Dr. Leroy interviewed family on timing of pt's cognitive decline (seemed to start around 2014, with speech deficits and confusion on finances, bills, check-writing) with rapid progression thereafter. He was able to walk independently prior to his 12/04 admission here. There were problems with wandering out of his house and intermittent aggression that led to his placement at a memory unit at [facility]. Lela says that in the four months this spring and summer, he has lost about 5-10lbs/month. He seems to just want to eat less. 2. Dr. Leroy spent considerable time counseling family on the natural progression of dementia and stages that represent gradually more functional loss. She showed Lela the Piyush scale that would predict her has a 40.4% chance of dying in the next six months. She explained that Mr. De La Rosa has advanced dementia at Stage 7d (not able to support himself sitting up). She also gave family the national statistic that 55% of people with advanced dementia who get hip fractures will in the following six months after their injury. Questions about dementia and prognosis were answered. This seems to be all new information for the family. 3. Dr. Leroy introduced the POLST order and gave a blank copy with pt's name labels on it. Family did not feel ready to make decisions re: not coming back to hospital or no feeding tube yet. 4. Dr. Leroy also counseled on the risks and benefits of PEG placement in dementia patients and gave family a 2 handouts on this. (A prior POLST states family was planning to place a feeding tube in the past). 5. Dr. Leroy also counseled family that Mr. De La Rosa is eligible for hospice care if the family wants to elect it. Family decided that they want to meet with hospice representatives, so Dr. Leroy alerted Case Management of their request. 6. Family also had insurance related questions that were deferred to Case Management. Palliative Care will return to speak to family more about POLST, if pt is still in hospital on Wednesday. Problems: Resuscitation Status Resuscitation Status: Limited Interventions POLST Updates/Changes Previous POLST?: Yes POLST Last Review Date: Dec 25, 2016 POLST Review Outcome: No Change . Advanced Care Planning Address: POLST Pt History History of Present Illness Niall De La Rosa is a demented 71-year-old male with past medical history significant for CAD, AAA, hyperlipidemia, hypertension that presented to the ED via EMS due to an unwitnessed ground-level fall at his facility ([facility] ) on 12/18/2016. He was recently hospitalized here for progressive dementia, agitation, and failure to thrive. At that time, he was moved from home into the [facility] facility as his could not care for him. Further HPI unobtainable due to the patient's dementia. He is unable to answer any questions or interact in any meaningful way. Hospital Course: He received surgery to repair his hip and is now POD #4 and Hospital Day #7. During this hospitalization, he developed paroxysmal afib, but is now medically stable, pending discharge. Palliative Care was asked today to meet with his family ( Lela and son Sj ) to discuss with them goals and possible transition to hospice care. Past Medical History Significant PMH Noted: Coronary artery disease status post CABG for three-vessel disease in August 2009 at [facility]. Hypercholesterolemia Expressive aphasia Peripheral vascular disease history of AAA (unknown size, actively monitored by pcp) GERD Hyperlipidemia Hypertension Surgical History CABG 3 utilizing left internal mammary artery graft to left anterior descending, saphenous vein graft to the mus intermedius, radial artery graft to the right posterior descending in August 2009 Status post cardiac catheterization for possible ST segment elevation PR - but it did not demonstrate any obvious acute ischemic substrate (he did have "mild to moderate distal left main disease and mild LAD disease, and PEREZ graft to his LAD was atretic probably related to a low-flow state chronically per the summary report") in August 2011 Retinal detachment repair Family History Unable to obtain due to patient's dementia. Social History Hx Alcohol Use: Yes (occasional wine) Hx Substance Use: No Hx Tobacco Use: Yes (Quit) Smoking Status: Former Smoker Living at [facility] (just placed there 3 days prior to this admission) Medications Current Medications: Current Medications Aspirin 81 mg DAILY PO Last administered on 12/25/16 10:11; Admin Dose 81 MG; Start 12/24/16 at 08:30 Famotidine 20 mg BID PO Last administered on 12/25/16 10:11; Admin Dose 20 MG; Start 12/23/16 at 20:30 Cyclobenzaprine HCl 5 mg Q8H PRN PO Last administered on 12/23/16 22:28; Admin Dose 5 MG; Start 12/23/16 at 19:43 Fluoxetine HCl 20 mg DAILY PO Last administered on 12/25/16 10:12; Admin Dose 20 MG; Start 12/25/16 at 08:30 Scheduled Aspirin (Aspirin) 81 Mg Tablet 81 MG PO DAILY Fluoxetine (Fluoxetine) 20 Mg Tablet 40 MG PO DAILY Lansoprazole ODT (Prevacid ODT) 30 Mg Tab.rap.dr 30 MG PO DAILY Losartan Potassium (Losartan Potassium) 25 Mg Tablet 25 MG PO DAILY Magnesium Hydroxide (Milk of Magnesia) 400 Mg/5 Ml Oral.susp 400 MG PO DAILY Niacin ER (Niacin ER) 1,000 Mg Tablet 3,000 MG PO HS [place]-3/Dha/Epa/Fish Oil (Fish Oil 1,000 mg Softgel) 1 Each Capsule 1 EACH PO DAILY Quetiapine Fumarate (Quetiapine Fumarate) 25 Mg Tablet 25 MG PO DAILY Rosuvastatin Calcium (Crestor) 20 Mg Tablet 20 MG PO DAILY Scheduled PRN Acetaminophen (Acetaminophen) 325 Mg Tablet 650 MG PO Q4H PRN PRN For Fever Bisacodyl (Dulcolax Rectal) 10 Mg Supp.rect 10 MG RC DAILY PRN PRN For Constipation Lorazepam (Lorazepam) 1 Mg Tablet 1 MG PO TID PRN PRN For Anxiety Methocarbamol (Methocarbamol) 750 Mg Tablet 750 MG PO DAILY PRN PRN For Spasm Nitroglycerin SL (Nitroglycerin SL) 0.4 Mg Tab.subl 0.4 MG SL Q5MIN PRN PRN For Chest Pain Miscellaneous Medications Loratadine (Loratadine) 10 Mg Capsule 10 MG PO Objective Findings Exam Vital Sign - Last Date Time Temp Pulse Resp B/P Pulse Ox O2 Delivery O2 Flow Rate FiO2 12/25/16 12:24 36.5 62 19 135/80 98 Room Air 12/21/16 15:49 2.00 Intake and Output 12/24/16 12/24/16 12/25/16 Cumulative From/Thru 14:59 22:59 06:59 12/18/16 23:05 - 12/25/16 06:56 Intake Total 200 ml 100 ml 8372 ml Output Total 750 ml 3325 ml Balance -550 ml 100 ml 5047 ml Intake Oral 200 ml 100 ml 1330 ml IV Total 7042 ml Output Urine Total 750 ml 3175 ml Estimated Blood Loss 150 ml # Voids 2 3 19 # Bowel Movements 0 0 0 General: Alert, Oriented, Person, No acute distress HEENT: Atraumatic, PERRLA, Scleral Anicteric, Mucous Membr Moist/[place] Heart: Regular Rate/Rhythm, Normal S1, S2, No Murmurs/Rubs/Gallops Lungs: Clear to Auscultation, Diminished Abdomen: Benign, Bowel Tones x4, Soft, Non Tender Neuro: Speech (verbal but unintelligible noises), Other (unable to follow commands) Extremities: Pulses Palpable x4, Warm, No Edema Lab/Diagnostics Lab and Imaging results reviewed in detail in EMR. Time spent Time: 70 minutes; >50% face to face with patient and/or family, providing counselling regarding plans and recommendations, and in care coordination with his/her medical teams. I also spent an additional 60 minutes counseling for advanced care planning with the patient/the patients family/the surrogate decision maker. Total time : 130 minutes. Vonda Leroy MD Dec 25, 2016 16:00
[2016-12-25] MEDS: risperiDONE 1 mg Tablet PO SCH (16:53)
--- NOTE | 2016-12-25 17:18 | NUR ---
HOSPICE INFO VISIT 10:00AM on Wednesday12/25/16 ALICIA Gomez
--- NOTE | 2016-12-25 18:57 | NUR ---
Mentation Pt has mood has been very elevated this shift. He has displayed no agitation during turns, or during linen/brief changes. Pt has been laughing has displayed symptoms of pain approximately every 6 hours. Symptoms included restlessness, furrowed brow and slight elevation of heart rate. IV 0.5mg dilaudid administered on both occasions with relief.
--- NOTE | 2016-12-25 19:45 | NUR ---
At 1930 pt was found sitting on the ground by this typewriter mechanic and day shift RN. Waffle mattress sliding off edge of bed where pt was found. Lift sheet used to transfer pt back into bed. Pt unable to state whether or not he's having pain, but is laying comfortably in bed with no agitated behavior/tachycardia. Existing scab on R knee open and bleeding, cleansed and dressing applied by this typewriter mechanic. Small amount of bloody drainage noted on R hip dressing. Otherwise no new abrasions/bruising noted. Waffle mattress removed from bed. Dr. Acuña notified at 1944, says he will be up to see pt shortly.
[2016-12-25] MEDS: oxyCODONE-Acetamin 5-325 mg Tablet PO PRN (19:57)
[2016-12-26] MEDS: HYDROmorphone 0.5 mg/0.5 mL iSecure Syringe IVPUSH PRN (02:22)
[2016-12-26] MEDS: Diltiazem 125 mg/125 mL D5W IV SCH ×4 (02:22→23:31)
[2016-12-26 03:39] VITALS: BP 129/102; PULSE 58; RESP 14; O2SAT 96
--- NOTE | 2016-12-26 04:27 | NUR ---
Shift Summary Sinus jose j 50-60's, up to 70's with pain. Frequently removes tele leads. Pt observed calling out and grimacing, dilaudid given x2 and percocet x1 with effective results. Around 0300 pt became highly agitated, yelling, combative, HR 80's with frequent PVCs. Lorazepam 0.5 mg IVP given with effective results, pt sleeping at this time. Island dressing on R hip CDI, pedal pulses 1+ bilat, cap refill 2 sec, both LE's cool to touch.
[2016-12-26 05:59] VITALS: PULSE 58
[2016-12-26] MEDS: Sodium Chloride LOK Flush 10 mL Syringe IV SCH ×3 (08:30→23:30)
[2016-12-26 09:41] VITALS: BP 164/114; PULSE 76; RESP 24; O2SAT 99
--- NOTE | 2016-12-26 11:58 | NUR ---
Hospice meeting/Family concerns Pts family had meeting this morning with hospice. No updated plan of care as of yet. Late morning after meeting family concerned about pt comfort. Adv per Eve suggestion we are trying to stay away from Narcotics and Ativan due to dementia and it can make pt worse. Pt is still getting Tylenol for pain. When this was mentioned to family they became upset. Son states, "He only has six months to live...why are they not giving him meds..." Adv I was not aware of that and if plan of care was made during meeting this morning it has not been updated yet. Family requested to speak with M.D. Dr. Hope made aware and is not speaking with family about plan of care. Addendum: 12/26/16 at 1304 by [employer] RN Plan for oral pain meds back on board. Provided pt with Percocet 5-325mg crushed with applesauce. Per family when pt is fidgety, and when he yells, he is most likely in pain. Will monitor for those sx and provide pain meds PRN. Pt has been repositioned for comfort as well. Pillow between legs.
[2016-12-26] MEDS: oxyCODONE-Acetamin 5-325 mg Tablet PO PRN ×2 (12:47→17:28)
[2016-12-26 13:50] VITALS: BP 147/98; PULSE 72; RESP 20; O2SAT 97
[2016-12-26] MEDS ORDERED: LORazepam 0.5 mg Tablet PO PRN (17:05)
--- NOTE | 2016-12-26 17:19 | NUR ---
Social Work Note: Continued Discharge Planning Data& Assessment: ACCESSIBILITY LIFT TECHNICIAN met with pt son and pt today to discuss discharge planning after hospice informational meeting. Pt family explained the visit went well and they signed consents. Per Inés with Hospice, they are able to open this Wednesday at 1000. Pt family discussed going home with private caregiving vs. Back to [facility] with Hospice. Pt family called pt's snf pension personal during this meeting and confirmed that the pension will not pay for private in home caregiving but will continue to pay for [facility]. Pt family decided they would like pt to remain at [facility] with Hospice support services. Pt family wanted to confirm this plan with [facility] themselves and to learn more about what [facility] will be able to provide for pt as his needs may evolve with Hospice coming in. ACCESSIBILITY LIFT TECHNICIAN to speak with [facility], pt family and Hospice again to confirm the discharge plan now that the decision to go on Hospice and discharge back to [facility] has officially been made. Pt family denies any other needs at this time. ACCESSIBILITY LIFT TECHNICIAN to continue to follow. Plan: Anticipated discharge back to [facility] when medically stable with Hospice to open Wednesday at 1000. ACCESSIBILITY LIFT TECHNICIAN to continue to follow. ALICIA Sanchez
[2016-12-26] MEDS: risperiDONE 1 mg Tablet PO SCH (17:28)
--- NOTE | 2016-12-26 18:55 | PCM.PNMED ---
Subjective Date of Service Dec 26, 2016 Subjective Patient is a 71yom w/ significant hx of severe dementia, suffered a ground level fall with Right hip fracture, received right hip replacement, developed paroxysmal afib, but unable to purchase. Actively and rehabilitation.. Pleasantly confused, continues to pick at bed covers and other items. Family engaged with palliative care on 12/25 and will pursue hospice. They are concerned that he may be in pain and requesting additional medications. Exam Vital Signs Vital Sign - Last Date Time Temp Pulse Resp B/P Pulse Ox O2 Delivery O2 Flow Rate FiO2 12/26/16 13:50 36.7 72 20 147/98 97 Room Air 12/21/16 15:49 2.00 Intake and Output 12/25/16 12/25/16 12/26/16 Cumulative From/Thru 15:00 23:00 07:00 12/18/16 23:05 - 12/26/16 06:10 Intake Total 1050 ml 0 ml 9422 ml Output Total 3325 ml Balance 1050 ml 0 ml 6097 ml Intake Oral 1050 ml 0 ml 2380 ml IV Total 7042 ml Output Urine Total 3175 ml Estimated Blood Loss 150 ml # Voids 4 2 25 # Bowel Movements 0 0 Exam General: Well-nourished elderly man with verbal gestures but no communication HEENT: sclerae anicteric, oral mucosa moist Neck: Supple Chest: clear to auscultation Cardiac: S1S2, no murmur Abdomen: BS normal, non-tender Extremities: No edema; hip surgery bandage without erythema or ecchymosis Neuro: Awake but not alert, cranial nerves symmetric, motor strength 5/5, somewhat restless movements but no dystonia IVs and Medications Medications Reviewed: Medications were reviewed in detail Lab and Diagnostics Result Diagram: 12/24/16 0335 12/25/16 0720 X-Rays, CTs and MRIs Right hip x-ray 12/18/16 Broken right hip that appears to be at the surgical neck Brain CT 12/18/16 Impression: No acute intracranial traumatic abnormality. Transmitted to the ED at 00:05 by Ilana Okeefe M.D. Cervical spine CT 12/18/16 IMPRESSION: No acture fractures or malalignment in the cervical spine. Transmitted to the ED at 00:06 by Ilana Okeefe M.D 12-lead ECG ECG Interpretation: Sinus rhythm with a rate of 79 Atrial premature complex Nonspecific intraventricular conduction delay Inferior infarct, old Time: 01:45 Interpreted by: ED physician Assessment & Plan Niall De La Rosa is a demented 71-year-old male with past medical history significant for CAD, AAA, hyperlipidemia, hypertension that presented to the ED via EMS due to an unwitnessed ground-level fall on 12/18/2016. He recently moved from home to [facility] as his was unable to care for his increasing dementia and agitation. Dementia with agitation, present on admission. Chronic. stable. -see Psychiatric recommendations note (12-10-16, Dr. Moran) from last visit here will follow their recommendations: -reduce prosac to 20 -Risperidone 0.5 HS, can add during day for sever aggression -No Seroquel -prn IV Ativan for agitation - Patient seems to tolerate by mouth lorazepam; which was on his medication list prior to admission - Per palliative care family meeting, patient placed on hospice. -awaits for hospice initiation Acute Right Fracture of the femoral head, present on admission. stable - surgical repair; 12/21/16 - Dilaudid IV 0.5mg prn q4 for pain; now encourage by mouth oxycodone 5 mg when necessary every 4 hours - Per Ortho - DVT propylaxis: Lovenox 40 mg subcutaneous 3 weeks followed by aspirin 325 mg twice a day 3 weeks New Paroxysmal Afib, present on admission, on going -likely 2nd to pain; now resolved -Discontinue telemetry monitoring Resolving, stable and or chronic problems: Coronary Artery Disease s/p 3 vessel CABG, present on admission. stable. - Continue home Aspirin 81 mg daily. Hypertension, present on admission. stable. - Continue Losartan 25 mg daily. - Continue Metoprolol tartrate 25 mg twice daily. Hyperlipidemia , present on admission. stable. - Continue Rosuvastain 20 mg daily. - Continue Niacin 3000 Mg HS. Depression, present on admission. stable. - Continue fluoxetine 40 mg daily GERD, present on admission. stable. - Continue Lansoprazole 30 mg daily Disposition; - pcp is Dr. Nguyễn - had just moved into [facility] befor this admission (3 days), anticipate discharge to hospice, possibly home first. GI Prophylaxis: Proton Pump Inhibitor VTE Prophylaxis: Sub-Q Enoxaparin, SCDs VTE Mechanical Devices: Intermittant Pneumatic CD Resuscitation Status: Limited Interventions Time spent 35 minutes spent in patient assessment and counseling family members at bedside regarding status of current medical condition. Geovanny Hope MD Dec 26, 2016 18:55
[2016-12-26 20:24] VITALS: BP 132/82; PULSE 101; RESP 16; O2SAT 96
[2016-12-27] MEDS: oxyCODONE-Acetamin 5-325 mg Tablet PO PRN ×2 (00:32→20:52)
[2016-12-27 02:55] VITALS: BP 137/78; PULSE 105; RESP 16; O2SAT 96
--- NOTE | 2016-12-27 06:41 | NUR ---
neuro/pain: pt. slept well most of the night, medicated x1 w/ percocet. No ativan needed for agitation. Pt. moaned w/ bed change and turning.
[2016-12-27] MEDS: Sodium Chloride LOK Flush 10 mL Syringe IV SCH ×2 (09:43→16:30)
[2016-12-27] MEDS: HYDROmorphone 0.5 mg/0.5 mL iSecure Syringe IVPUSH PRN (09:46)
[2016-12-27 11:25] VITALS: BP 128/76; PULSE 86; RESP 18; O2SAT 97
--- NOTE | 2016-12-27 12:17 | PCM.PNMED ---
Subjective Date of Service Dec 27, 2016 Subjective Patient is a 71-year-old male with history significant for severe dementia, suffered a right hip fracture status post surgical intervention and developed paroxysmal A. fib, now stabilized on hospice, pending discharge back to [facility] when Hospice opens. An awake, but not alert orientated for interview. Patient seen comfortable, blood pressure 137/78, respiratory rate 16, heart rate is a little bit elevated. No guarding noted. Exam Vital Signs Vital Sign - Last Date Time Temp Pulse Resp B/P Pulse Ox O2 Delivery O2 Flow Rate FiO2 12/27/16 04:53 Supplement Oxygen 12/27/16 02:55 37.6 105 16 137/78 96 12/21/16 15:49 2.00 Intake and Output 12/26/16 12/26/16 12/27/16 Cumulative From/Thru 15:00 23:00 07:00 12/18/16 23:05 - 12/27/16 05:00 Intake Total 190 ml 0 ml 9612 ml Output Total 3325 ml Balance 190 ml 0 ml 6287 ml Intake Oral 180 ml 0 ml 2560 ml IV Total 10 ml 7052 ml Output Urine Total 3175 ml Estimated Blood Loss 150 ml # Voids 2 2 29 # Bowel Movements 0 0 Exam General: No acute distress HEENT: Normocephalic, atraumatic. PERRLA, EOMI, Anicteric sclerae, moist conjunctivae. Neck: No JVD, No bruits. No lymphadenopathy or thyromegaly. Cardiovascular: Mild tachycardia, otherwise normal in rhythm, no rubs, or gallops appreciated Pulmonary: b/l air sound with no crackles, wheezes, or rhonchi. no use of accessory muscles. Abdomen: +Bowel sound, Soft, nontender, nondistended. Extremities: No clubbing or cyanosis, no lymphedema, no b/l lower leg edema Skin: Normal temperature, turgor, and texture; no rash. No visualized skin ulcer. Neurological: CN II-VII grossly intact, alert, smiling, unintelligible language IVs and Medications Medications Reviewed: Medications were reviewed in detail Lab and Diagnostics Result Diagram: 12/24/16 0336 12/25/16 0720 X-Rays, CTs and MRIs Right hip x-ray 12/18/16 Broken right hip that appears to be at the surgical neck Brain CT 12/18/16 Impression: No acute intracranial traumatic abnormality. Transmitted to the ED at 00:05 by Ilana Okeefe M.D. Cervical spine CT 12/18/16 IMPRESSION: No acture fractures or malalignment in the cervical spine. Transmitted to the ED at 00:06 by Ilana Okeefe M.D 12-lead ECG ECG Interpretation: Sinus rhythm with a rate of 79 Atrial premature complex Nonspecific intraventricular conduction delay Inferior infarct, old Time: 01:45 Interpreted by: ED physician Assessment & Plan Niall De La Rosa is a demented 71-year-old male with past medical history significant for CAD, AAA, hyperlipidemia, hypertension that presented to the ED via EMS due to an unwitnessed ground-level fall on 12/18/2016. He recently moved from home to [facility] as his was unable to care for his increasing dementia and agitation. Dementia with agitation, present on admission. Chronic. stable. -see Psychiatric recommendations note (8--, Dr. Moran) from last visit here will follow their recommendations: -reduce prosac to 20 -Risperidone 0.5 HS, can add during day for sever aggression -No Seroquel -prn IV Ativan for agitation - Patient seems to tolerate by mouth lorazepam; which was on his medication list prior to admission - Per palliative care family meeting, patient placed on hospice. -awaits for hospice initiation Acute Right Fracture of the femoral head, present on admission. stable - surgical repair; 12/21/16 - oxycodone 5 mg when necessary every 4 hours, d/c Dilaudid IV 0.5mg prn q4 for pain; encourage by mouth intake - Per Ortho - DVT propylaxis: Lovenox 40 mg subcutaneous 3 weeks followed by aspirin 325 mg twice a day 3 weeks New Paroxysmal Afib, present on admission, on going -likely 2nd to pain; now resolved -Discontinue telemetry monitoring Resolving, stable and or chronic problems: Coronary Artery Disease s/p 3 vessel CABG, present on admission. stable. - Continue home Aspirin 81 mg daily. Hypertension, present on admission. stable. - Continue Losartan 25 mg daily. - Continue Metoprolol tartrate 25 mg twice daily. Hyperlipidemia , present on admission. stable. - Continue Rosuvastain 20 mg daily. - Continue Niacin 3000 Mg HS. Depression, present on admission. stable. - Continue fluoxetine 40 mg daily GERD, present on admission. stable. - Continue Lansoprazole 30 mg daily Disposition; - pcp is Dr. Nguyễn - had just moved into [facility] before this admission (3 days), anticipate discharge back to [facility] with hospice on Wednesday. GI Prophylaxis: Proton Pump Inhibitor VTE Prophylaxis: Sub-Q Enoxaparin, SCDs VTE Mechanical Devices: Intermittant Pneumatic CD Resuscitation Status: Limited Interventions Time spent 25 minutes Attending Statement I interviewed and examined the patient on rounds today. I agree with the assessment and plan as stated above. Won Head DO Dec 27, 2016 12:17 Geovanny Hope MD Dec 27, 2016 16:43
--- NOTE | 2016-12-27 14:51 | NUR ---
LAYNE Signed ALICIA Sanchez
[2016-12-27 15:40] VITALS: BP 130/80; PULSE 86; RESP 18; O2SAT 96
--- NOTE | 2016-12-27 16:00 | NUR ---
Gentle care, repositioning per pt's Spouse request Pt medicated for discomfort prior to bedbath & repositioning; with partial effectiveness in reducing pain of turning. Pt able to swallow meds crushed in applesauce & ice cream. Poor appetite, though does like vanilla ice cream & raspberry sherbet, per pt's Spouse. Attentive & supportive, @ bedside much of today, encouraging pt to take small spoonfuls of ensure, ice cream, yogurt.
[2016-12-27] MEDS: risperiDONE 1 mg Tablet PO SCH (20:09)
[2016-12-27 20:10] VITALS: BP 133/74; PULSE 80; RESP 18; O2SAT 96
--- NOTE | 2016-12-27 22:02 | NUR ---
MENTATION Pt unable to communicate, only moaning and yelling, severe dementia. Repositioned slowly for comfort. No other issues noted at this time.
[2016-12-27] MEDS: Diltiazem 125 mg/125 mL D5W IV SCH ×2 (22:54)
[2016-12-27 23:37] VITALS: BP 98/57; RESP 20
[2016-12-28] MEDS: Sodium Chloride LOK Flush 10 mL Syringe IV SCH ×4 (00:01→23:08)
[2016-12-28 08:23] VITALS: BP 104/73; PULSE 96; RESP 16; O2SAT 93
[2016-12-28] MEDS: oxyCODONE-Acetamin 5-325 mg Tablet PO PRN (09:30)
--- NOTE | 2016-12-28 11:00 | NUR ---
Social Work: Readiness for Discharge/Multidisciplinary Rounds D: Pt discussed in multidisciplinary rounds; the patient has transitioned to comfort care and is a transfer back to [facility] with hospice to open on Wednesday at 10:00am. Providers are aware of this plan and will have discharge paperwork completed by 0900. Pt will likely require BLS transport due to decreased mentation and inability to safely maintain upright seated position. Wafer Production Worker is reviewing this as well. ALICIA spoke with Tatyana, Admissions/directory compiler at [facility] to update her on the plan. She understands and will expect the patient a little before 10:00am before hospice arrives. A: Pt who is comfort care. P: Anticipate pt to return to [facility] on hospice on 12/29/2016 with intake scheduled for 10:00. Wafer Production Worker is reviewing for BLS transport and will arrange for this. ALICIA Gomez
[2016-12-28] MEDS ORDERED: Morphine 20 mg/mL Oral Syringe SL/PO PRN (13:15)
--- NOTE | 2016-12-28 13:19 | PCM.PNMED ---
Subjective Date of Service Dec 28, 2016 Subjective Patient is an 71-year-old gentleman with a medical history significant for dementia, suffer from a ground-level fall with a right hip fracture status post surgical intervention, placed on hospice. Overnight events. Patient continued to mumble gibberish. Alert but unaware of person self or time. Nurse reports that patient cheeks his medication. Unable to follow commands Unable to obtain a review of system Exam Vital Signs Vital Sign - Last Date Time Temp Pulse Resp B/P Pulse Ox O2 Delivery O2 Flow Rate FiO2 12/28/16 08:33 Supplement Oxygen 12/28/16 08:23 37.2 96 16 104/73 93 Intake and Output 12/27/16 12/27/16 12/28/16 Cumulative From/Thru 15:00 23:00 07:00 12/18/16 23:05 - 12/28/16 06:21 Intake Total 60 ml 0 ml 9672 ml Output Total 3325 ml Balance 60 ml 0 ml 6347 ml Intake Oral 60 ml 2620 ml IV Total 0 ml 7052 ml Output Urine Total 3175 ml Estimated Blood Loss 150 ml # Voids 2 2 33 # Bowel Movements 1 1 Exam General: No acute distress, appropriately interactive HEENT: Normocephalic, atraumatic. PERRLA, EOMI, Anicteric sclerae, moist conjunctivae. Neck: No JVD, No bruits. No lymphadenopathy or thyromegaly. Cardiovascular: Regular rate and rhythm with no murmurs, rubs, or gallops appreciated Pulmonary: b/l air sound with no crackles, wheezes, or rhonchi. no use of accessory muscles. Abdomen: +Bowel sound, Soft, nontender, nondistended. Extremities: No clubbing or cyanosis, no lymphedema, no b/l lower leg edema. Pain with any attempt to internally rotate the right hip Skin: Normal temperature, turgor, and texture; no rash. No visualized skin ulcer. Neurological: CN II-VII grossly intact, alert, smiling, unintelligible language IVs and Medications Medications Reviewed: Medications were reviewed in detail Lab and Diagnostics Result Diagram: 12/24/16 0335 12/25/16 0720 X-Rays, CTs and MRIs Right hip x-ray 12/18/16 Broken right hip that appears to be at the surgical neck Brain CT 12/18/16 Impression: No acute intracranial traumatic abnormality. Transmitted to the ED at 00:05 by Ilana Okeefe M.D. Cervical spine CT 12/18/16 IMPRESSION: No acture fractures or malalignment in the cervical spine. Transmitted to the ED at 00:06 by Ilana Okeefe M.D 12-lead ECG ECG Interpretation: Sinus rhythm with a rate of 79 Atrial premature complex Nonspecific intraventricular conduction delay Inferior infarct, old Time: 01:45 Interpreted by: ED physician Assessment & Plan Niall De La Rosa is a demented 71-year-old male with past medical history significant for CAD, AAA, hyperlipidemia, hypertension that presented to the ED via EMS due to an unwitnessed ground-level fall on 12/18/2016. He recently moved from home to [facility] as his was unable to care for his increasing dementia and agitation. Dementia with agitation, present on admission. Chronic. stable. -see Psychiatric recommendations note (12-10-16, Dr. Moran) from last visit here will follow their recommendations: -reduce prosac to 20 -Risperidone 0.5 HS, can add during day for sever aggression -No Seroquel -prn IV Ativan for agitation - Patient seems to tolerate by mouth lorazepam; which was on his medication list prior to admission - Per palliative care family meeting, patient placed on hospice. -awaits for hospice initiation Acute Right Fracture of the femoral head, present on admission. stable - surgical repair; 12/21/16 - oxycodone 5 mg when necessary every 4 hours. d/c Dilaudid IV 0.5mg prn q4 for pain; encourage by mouth intake -added oxycodone oral conc per palliative care - Per Ortho - DVT propylaxis: Lovenox 40 mg subcutaneous 3 weeks followed by aspirin 325 mg twice a day 3 weeks New Paroxysmal Afib, present on admission, on going -likely 2nd to pain; now resolved -Discontinue telemetry monitoring Resolving, stable and or chronic problems: Coronary Artery Disease s/p 3 vessel CABG, present on admission. stable. - Continue home Aspirin 81 mg daily. Hypertension, present on admission. stable. - Continue Losartan 25 mg daily. - Continue Metoprolol tartrate 25 mg twice daily. Hyperlipidemia , present on admission. stable. - Changed Rosuvastain 20 mg Q2days. to minimized medication administration. consider d/c as risk outweigh benefits. - Continue Niacin 3000 Mg HS. Depression, present on admission. stable. - Continue fluoxetine 40 mg daily GERD, present on admission. stable. - Continue Lansoprazole 30 mg daily Disposition; - pcp is Dr. Nguyễn - had just moved into [facility] before this admission (3 days), anticipate discharge back to [facility] with hospice on Wednesday. GI Prophylaxis: Proton Pump Inhibitor VTE Prophylaxis: Sub-Q Enoxaparin, SCDs VTE Mechanical Devices: Intermittant Pneumatic CD Resuscitation Status: Limited Interventions Time spent 20 minutes Attending Statement I examined the patient on rounds today. I agree with the assessment and plan as stated above. Won Heda DO Dec 28, 2016 13:19 Geovanny Hope MD Dec 28, 2016 17:54
--- NOTE | 2016-12-28 13:27 | PCM.PALLBR ---
Palliative Care Recommendation Summary of palliative recommendations: 12/28: Over the weekend, family met with hospice and signed paperwork. The plan is for Hospice to open patient's case on Friday 12/[address] [facility]. Pain: Dr. Leroy changed him over to liquid oxycodone concentrate today, as he seemed to have more problem with pills crushed in applesauce/ice cream. His orders are: oxycodone 5mg po d3pfynp scheduled and q 4 hours prn breakthrough pain. Restlessness/Agitation: Dr. Leroy d/c'd ativan and asked RN to use prn risperdal for restlessness/agitation, if needed. His orders are: risperdal 0.5mg po BID scheduled and q 6 hours prn breakthrough restlessness/agitation. It is possible that hospice may need to titrate this medications down once pt settled at his facility; he has had some night agitation and breakthough pain observed here in the hospital, which is why the dosing was scheduled. Monday 12/25: Family Conference Team Meeting-- Gabriel Leroy and Jono met with Mrs. Lela De La Rosa and her 's son Sj (who was on speakerphone). 1. Patient's Functional Baseline: Dr. Leroy interviewed family on timing of pt's cognitive decline (seemed to start around 2014, with speech deficits and confusion on finances, bills, check-writing) with rapid progression thereafter. He was able to walk independently prior to his 12/04 admission here. There were problems with wandering out of his house and intermittent aggression that led to his placement at a memory unit at [facility]. Lela says that in the four months this spring and summer, he has lost about 5-10lbs/month. He seems to just want to eat less. 2. Dr. Leroy spent considerable time counseling family on the natural progression of dementia and stages that represent gradually more functional loss. She showed Lela the Piyush scale that would predict her has a 40.4% chance of dying in the next six months. She explained that Mr. De La Rosa has advanced dementia at Stage 7d (not able to support himself sitting up). She also gave family the national statistic that 55% of people with advanced dementia who get hip fractures will in the following six months after their injury. Questions about dementia and prognosis were answered. This seems to be all new information for the family. 3. Dr. Leroy introduced the POLST order and gave a blank copy with pt's name labels on it. Family did not feel ready to make decisions re: not coming back to hospital or no feeding tube yet. 4. Dr. Leroy also counseled on the risks and benefits of PEG placement in dementia patients and gave family a 2 handouts on this. (A prior POLST states family was planning to place a feeding tube in the past). 5. Dr. Leroy also counseled family that Mr. De La Rosa is eligible for hospice care if the family wants to elect it. Family decided that they want to meet with hospice representatives, so Dr. Leroy alerted Case Management of their request. 6. Family also had insurance related questions that were deferred to Case Management. Palliative Care will return to speak to family more about POLST, if pt is still in hospital on Wednesday. Problems: Resuscitation Status Resuscitation Status: Limited Interventions POLST Updates/Changes Previous POLST?: Yes POLST Last Review Date: Dec 25, 2016 POLST Review Outcome: No Change . Symptom management: Agitation, Pain Total time 35 minutes; >50% face to face with patient and/or family, providing counselling regarding plans and recommendations, and in care coordination with his/her medical teams. Palliative Brief Note Date of Service Dec 28, 2016 . Patient Identification: Niall De La Rosa is a severely demented 71-year-old male with past medical history significant for CAD, AAA, hyperlipidemia, hypertension that presented to the ED via EMS due to an unwitnessed ground-level fall at his facility ([facility] ) on 12/18/2016. He was recently hospitalized here for progressive dementia, agitation, and failure to thrive. At that time, he was moved from home into the [facility] facility as his could not care for him. Further HPI unobtainable due to the patient's vascular dementia. He is unable to answer any questions or interact in any meaningful way. Hospital Course: He received surgery to repair his hip and is now POD #7 and Hospital Day #10. During this hospitalization, he developed paroxysmal afib, but is now medically stable, pending discharge. Palliative Care met initially with his family 12/25 to discuss their hopes for his future management outside the hospital and general expectations of his disease progression as a vascular dementia patient. Please see PLAN. Subjective: pt unable to verbalize his needs. He speaks incoherently and currently appears somewhat restless, moving his hands about slightly in the air , as if speaking to someone (not present). Exam: General: brow furrows at times, (I have returned and seen him smiling while babbling at the air today, also) HEENT: christian wasting, face thin. Lungs: clear Heart: S1,S2, rrr, no murmur Abdomen: nondistended Ext: no Vonda Stephenson MD Dec 28, 2016 13:27
--- NOTE | 2016-12-28 13:43 | NUR ---
Scheduled BLS transport via [facility] and poultry picking machine tender is 915AM. Patient will be opening with Hospice at 10am. Updated AUTOMOTIVE CONSULTANT
--- NOTE | 2016-12-28 13:58 | NUR ---
NUTRITION FOLLOW-UP: Assess: 71 YO M admitted for R hip fracture, now POD #7 R hip hemiarthroplasty. Pt with severe dementia. His PO intake has been poor at only bites. He does seem to like sweet foods. Pt has been eating Ensure, ice cream, yogurt, sherbet, etc. Plan is to d/c with hospice tomorrow. Wt has been stable throughout hospital stay. PMHX: CAD, hypercholesterolemia, expressive aphagia, PVD, AAA, GERD, HLD, HTN, dementia. DIET: General. PO intake mostly bites. LABS: head operator .74, glu 116, ca 8.4 MEDICATIONS: Reviewed. GI: BMx1 12/28 SKIN: No issues noted. ANTHROPOMETRICS: Wt: 88.6kg, BMI 27.2 kg/m2, Admit wt: 87.8 kg. ESTIMATED NEEDS: Calories: 1401-7979 kcal/day (25-30 kcal/kg BW) Protein: 88-105 g/day (1.0-1.2 g/kg BW) NUTRITION DIAGNOSIS: 1) Inadequate oral intake related to decreased ability to consume sufficient energy as evidenced by poor PO X 4 days. --PERISTS INTERVENTION: 1) Continue current supplements and food preferences as tolerated MONITOR/EVALUATE: PO intake, diet tolerance, labs, weight, GI/nutrition status. Follow per moderate nutrition risk guidelines.
[2016-12-28] MEDS ORDERED: risperiDONE 1 mg Tablet PO PRN (14:30)
[2016-12-28] MEDS: oxyCODONE 20 mg/mL Oral Concentration PO PRN (17:10)
--- NOTE | 2016-12-28 18:15 | NUR ---
Pain Cardiac: No Tele. HR 50-70 Resp: no s/s of SOB GI/: Incontinent. No signs/symptoms of N/V. Did oral care on pt at beginning of shift. Pt thirsty and able to drink water. Pills crushed in pudding. Pt was not inclined to swallow and held pudding in his mouth for a few minutes. Unable to assess how much of the medication was swallowed. Palliative Called and meds changed to be easier to swallow and scheduled for better pain and anxiety control. Neuro: Dementia, non-verbal, yells and moans at times. Ativan given this morning when pt was yelling. He does not appear to be in pain when he is at rest, but becomes very agitated and yells when he is moved even a bit.
[2016-12-28 20:00] VITALS: BP 117/76; PULSE 98; RESP 22; O2SAT 98
[2016-12-28] MEDS: risperiDONE 1 mg Tablet PO SCH (21:37)
[2016-12-28 23:06] VITALS: BP 115/71; PULSE 69; RESP 16; O2SAT 97
[2016-12-28] MEDS: Diltiazem 125 mg/125 mL D5W IV SCH ×2 (23:08)
[2016-12-28] MEDS: oxyCODONE 20 mg/mL Oral Concentration PO SCH (23:42)
[2016-12-29 04:33] VITALS: PULSE 68; O2SAT 95
[2016-12-29] MEDS: oxyCODONE 20 mg/mL Oral Concentration PO PRN (04:33)
--- NOTE | 2016-12-29 05:43 | NUR ---
Pain / Mentation / Dressing Pt medicated with Liquid Oxycodone 5mg at HS and an additional dose X1 for pain control overnight. Pt restless at times, mostly non-verbal, speaks incoherently at times and uses hand gestures and arm movements in the air, like he sees something that isn't there. Pt does not respond to questions. Scheduled Risperdal administered at HS. Right hip dressing CDI with small amount of old shadow drainage noted on dressing. VS stable and afebrile. No Tele.
[2016-12-29] MEDS ORDERED: METO25TA6 PO (07:02)
[2016-12-29] MEDS ORDERED: POLY17PO6 PO (07:02)
[2016-12-29] MEDS ORDERED: ENOX40DI8 SUBQ (07:02)
[2016-12-29] MEDS ORDERED: OXYC20OR15 PO ×2 (07:02→13:27)
[2016-12-29] MEDS ORDERED: ASPI325T32 PO (07:02)
[2016-12-29] MEDS ORDERED: SENN-133 PO (07:02)
[2016-12-29] MEDS ORDERED: RISP1TAB90 PO ×2 (07:02)
--- NOTE | 2016-12-29 07:04 | PCM.DIMED ---
Won Head DO 12/29/16 0704: Discharge Instructions Date of Service Dec 29, 2016 Dates of Hospitalization Dec 19, 2016 at 01:53 Discharge Diagnosis Discharge Diagnosis Dementia with agitation, stage 7D, present on admission. Chronic. stable. Acute Closed Right Fracture of the femoral head, present on admission. stable New Paroxysmal Afib, present on admission, on going Resolving, stable and or chronic problems: Coronary Artery Disease s/p 3 vessel CABG, present on admission. stable. Hypertension, present on admission. stable. Hyperlipidemia , present on admission. stable. Depression, present on admission. stable. GERD, present on admission. stable. Patient discharged to assisted living on comfort care with hospice at 10-10: 30am today (12/29). Medication Instructions Additional med instructions Few medication changes to home regimen For your hip fracture: -Oxycodone concentrated 20mg/ml, 5mg PO ever 6hr as needed for pain For your severe Alzheimer dementia: -Discontinue Seroquel -Continue taking risperidone 0.5 mg bid -Risperidone 0.5 mg every 6 hours as needed for severe agitation For your dyslipidemia: -Discontinue taking niacin ER 3000 mg nightly -Discontinue taking omega-3 fatty acid -Discontinued taking Crestor 20 mg daily Can continue to take all other home medication Diet Discharge Diet: No restrictions Activity Discharge Activity: No restrictions, Other (Limited,patient unable to support self or follow instructions due to advanced dementia) Patient Instructions Patient Instructions You were admitted due to a ground-level fall resulting in a right hip fracture. This has been surgically amended. In the course of ER stay, you developed an irregular heartbeat. This too, has been medicated and stable. You are medically stable for discharge from this hospitalization. Best wishes, Follow-up with PCP in: 1 week Geovanny Hope MD 12/29/16 1421: Discharge Instructions Attending's Statement I examined the patient on rounds today. I agree with the assessment and plan as stated above. Won Head DO Dec 29, 2016 07:04 Geovanny Hope MD Dec 29, 2016 14:21
--- NOTE | 2016-12-29 08:19 | NUR ---
Called and confirmed with [facility], they have a 915AM pick out hand scheduled for return to [facility]. Updated MD on pick out hand time and remind about completing discharge.
--- NOTE | 2016-12-29 08:20 | NUR ---
Social Work: Discharge D: Pt discussed with attending and resident providers. The patient is medically stable for discharge and transfer to [facility]. BLS has been arranged for 9:15 this morning. [facility] staff is aware of this and hospice has confirmed they are opening at 10:00am. ALICIA spoke with pts Lela via telephone to update her on discharge plan. She is aware of BLS transport and states she understands the potential for out of pocket expense if denied by Medicare. She agrees with this plan and will be coming to the hospital to assist with transfer/discharge. She identifies no other concerns or needs at this time. Bedside RN aware of this plan A: Pt who is on comfort care P: Pt to discharge back to [facility] with Hospice to open at 10:00am. BLS transport to arrive at 9:15. ALICIA Gomez
[2016-12-29 08:30] VITALS: BP 130/61; PULSE 76; RESP 16; O2SAT 95
[2016-12-29] MEDS: oxyCODONE 20 mg/mL Oral Concentration PO SCH (08:35)
[2016-12-29] MEDS: risperiDONE 1 mg Tablet PO SCH (08:36)
[2016-12-29] MEDS: Sodium Chloride LOK Flush 10 mL Syringe IV SCH (08:37)
--- NOTE | 2016-12-29 09:56 | NUR ---
Discharge Patient left back to [facility] via EMS services with . Foam wedge placed for hip precautions prior to transport, island dressing in place with minimal brown drainage. No tele to remove, IV DC'd intact, all personal belongings with . Packet with new prescriptions and discharge instructions sent with EMS services. Report called to wen Mills RN at [facility]. Patient meeting with hospice at 1000. No questions from family or EMS services at time of DC.
--- NOTE | 2016-12-29 14:02 | NUR ---
Palliative care note (late note for 12/28/16) D/A: Phone call to [facility] and discuss with Kayla at [facility]. She confirms that pt is on the schedule for [facility] open for Wednesday12/29/[address] Leroy aware. P: Palliative care to follow. Inés GREEN, CCM
--- NOTE | 2016-12-29 17:21 | PCM.DC.MED ---
Discharge Summary Date of Service Dec 29, 2016 Dates of Hospitalization Date of Hospital Admission Dec 19, 2016 at 01:53 Date of Discharge: Dec 29, 2016 Providers: Admitting Physician: Jaziel Garcia MD Primary Care Physician: Lennox Nguyễn MD Attending Physician: Geovanny Hope MD Diagnosis at Time of Discharge Diagnosis at Time of Discharge Dementia with agitation, stage 7D, present on admission. Chronic. stable. Acute Closed Right Fracture of the femoral head, present on admission. stable New Paroxysmal Afib, present on admission, on going Resolving, stable and or chronic problems: Coronary Artery Disease s/p 3 vessel CABG, present on admission. stable. Hypertension, present on admission. stable. Hyperlipidemia , present on admission. stable. Depression, present on admission. stable. GERD, present on admission. stable. Patient discharged to assisted living on comfort care with hospice at 10-10: 30am today (12/29). Consultations Orthopedic surgery Cardiology Procedures XRay, CTs & MRIs Right hip x-ray 12/18/16 Broken right hip that appears to be at the surgical neck Brain CT 12/18/16 Impression: No acute intracranial traumatic abnormality. Transmitted to the ED at 00:05 by Ilana Okeefe M.D. Cervical spine CT 12/18/16 IMPRESSION: No acture fractures or malalignment in the cervical spine. Transmitted to the ED at 00:06 by Ilana Okeefe M.D ECG 12 Lead ECG Interpretation: Sinus rhythm with a rate of 79 Atrial premature complex Nonspecific intraventricular conduction delay Inferior infarct, old Time: 01:45 Interpreted by: ED physician Brief History Niall De La Rosa is a demented 71-year-old male with past medical history significant for CAD, AAA, hyperlipidemia, hypertension that presented to the ED via EMS due to an unwitnessed ground-level fall on 12/18/2016. He was recently hospitalized here for progressive dementia, agitation, and failure to thrive. At that time, he was moved from home into the [facility] facility as his could not care for him. Further HPI unobtainable due to the patient's dementia. He is unable to answer any questions or interact in any meaningful way. Hospital Course Patient is an 71-year-old gentleman from [facility] care, suffered from a ground- level fall with a right hip fracture status post surgical intervention, placed on hospice due to severity of his severe senile dementia. Dementia with agitation, present on admission. Chronic. stable. -D/c home on: -Risperidone 0.5 HS, can add PRN during day for sever aggression -No Seroquel -prn IV Ativan for agitation -Discussion with palliative care, family has agreed to place patient on hospice care due to severe nature of patient's advanced dementia, fast score 7D Displaced right femoral neck fracture - surgical repair; 12/21/16 right hip bipolar hemiarthroplasty -oxycodone oral conc for pain -added miralax for constipation New Paroxysmal Afib, present on admission, on going -likely 2nd to pain; now resolved Resolving, stable and or chronic problems: Coronary Artery Disease s/p 3 vessel CABG, present on admission. stable. - Discontinued aspirin 81 mg daily Hypertension, present on admission. stable. - Continue Losartan 25 mg daily. - Continue Metoprolol tartrate 25 mg twice daily. Hyperlipidemia , present on admission. stable. -Discontinue statin and niacin as risk outweigh benefits Depression, present on admission. stable. - Continue fluoxetine 40 mg daily GERD, present on admission. stable. - Continue Lansoprazole 30 mg daily Exam Vital Signs (Last) Date Time Temp Pulse Resp B/P Pulse Ox O2 Delivery O2 Flow Rate FiO2 12/29/16 08:30 36.5 76 16 130/61 95 Room Air Exam General: No acute distress, appropriately interactive HEENT: Normocephalic, atraumatic. PERRLA, EOMI, Anicteric sclerae, moist conjunctivae. Neck: No JVD, No bruits. No lymphadenopathy or thyromegaly. Cardiovascular: Regular rate and rhythm with no murmurs, rubs, or gallops appreciated Pulmonary: b/l air sound with no crackles, wheezes, or rhonchi. no use of accessory muscles. Abdomen: +Bowel sound, Soft, nontender, nondistended. Extremities: No clubbing or cyanosis, no lymphedema, no b/l lower leg edema. Pain with any attempt to internally rotate the right hip Skin: Normal temperature, turgor, and texture; no rash. No visualized skin ulcer. Neurological: CN II-VII grossly intact, alert, smiling, unintelligible language Test 12/19/16 01:20 12/19/16 12:53 12/21/16 06:40 12/21/16 13:15 Prothrombin Time 11.2sec (8.1-12.5) Prothromb Time International Ratio 1.05ratio Total Bilirubin 0.7mg/dL (0.0-1.2) Aspartate Amino Transf (AST/SGOT) 24U/L (0-50) Alanine Aminotransferase (ALT/SGPT) 20U/L (0-44) Alkaline Phosphatase 70U/L (25-160) Total Protein 7.0g/dL (6.4-8.4) Albumin 4.4g/dL (3.4-5.0) Total Creatine Kinase 131U/L (21-232) Creatine Kinase MB 2.7ng/mL (0.0-10.4) Creatine Kinase MB % % (0.0-5.0) Troponin T < 0.010ug/L (0.0-0.011) Thyroid Stimulating Hormone (TSH) 2.120uIU/mL (0.450-4.500) Free Thyroxine 1.20ng/dL (0.82-1.77) Hold Urine Received (Received) Test 12/22/16 17:24 12/23/16 03:10 12/24/16 03:35 12/25/16 07:20 Urine Color Yellow (YELLOW) Urine Appearance Hazy (CLEAR,HAZY) Urine pH 5.5 (5.0-8.0) Urine Specific [place] 1.030 (1.003-1.035) Urine Protein Tracemg/dL (NEG,TRACE) Urine Glucose (UA) Negativemg/dL (NEGATIVE) Urine Ketones 15mg/dL (NEGATIVE) Urine Occult Blood Moderate (NEGATIVE) Urine Nitrite Negative (NEGATIVE) Urine Bilirubin Negative (NEGATIVE) Urine Urobilinogen 1.0mg/dL (NORMAL) Urine Leukocyte Esterase Trace (NEGATIVE) Urine RBC 3-10/hpf (0-2) Urine WBC 0-5/hpf (0-5) Urine Epithelial Cells Few/hpf (NONE-MOD) Urine Crystals None seen (NONE SEEN) Urine Bacteria Few/hpf (NONE-FEW) Urine Hyaline Casts None/lpf (NONE) Urine Granular Casts None seen (NONE SEEN) Urine Waxy Casts None seen (NONE SEEN) Urine Red Blood Cell Casts None seen (NONE SEEN) Urine White Blood Cell Casts None seen (NONE SEEN) Urine Mucus Present (None Seen) Urine Trichomonas None seen (NONE SEEN) Urine Yeast None (NONE SEEN) Urinalysis Comment None Urine Culture Reflexed Indicated Neutrophils (%) (Auto) 67.2% (40-74) Lymphocytes (%) (Auto) 11.7% (14-46) Monocytes (%) (Auto) 17.6% (4-12) Eosinophils (%) (Auto) 3.1% (0-5) Basophils (%) (Auto) 0.2% (0-3) Procalcitonin 0.09ng/mL (0.00-0.08) Hold [place] Top Tube Received (Received) White Blood Count 7.4th/mm3 (3.8-10.1) Red Blood Count 3.57mil/mm3 (4.40-5.80) Hemoglobin 11.3g/dL (13.8-17.2) Hematocrit 32.9% (41.0-50.0) Mean Corpuscular Volume 92.2fL (81-100) Mean Corpuscular Hemoglobin 31.7pg (27.0-35.0) Mean Corpuscular Hemoglobin Concent 34.3% (32.0-37.0) Red Cell Distribution Width 12.7% (12.3-15.4) Platelet Count 154bil/L (150-400) Magnesium Level 2.1mg/dL (1.6-2.6) Sodium Level 141mEq/L (134-144) Potassium Level 4.1mEq/L (3.5-5.2) Chloride Level 104mEq/L (97-108) Carbon Dioxide Level 23mmol/L (18-29) Blood Urea Nitrogen 15mg/dL (8-27) Creatinine 0.74mg/dL (0.76-1.27) Estimat Glomerular Filtration Rate 111mL/min (>59) Glucose Level 116mg/dL (60-99) Calcium Level 8.4mg/dL (8.5-10.1) Discharge Medications Discharge Medications Fluoxetine (Fluoxetine) 20 Mg Tablet 40 MG PO DAILY (Reported) Lansoprazole ODT (Prevacid ODT) 30 Mg Tab.rap.dr 30 MG PO DAILY (Reported) Losartan Potassium (Losartan Potassium) 25 Mg Tablet 25 MG PO DAILY (Reported) Magnesium Hydroxide (Milk of Magnesia) 400 Mg/5 Ml Oral.susp 400 MG PO DAILY ( Reported) Metoprolol Tartrate (Metoprolol Tartrate) 25 Mg Tablet 25 MG PO BID Prescribed by: EDWIGE HEAD DO Risperidone (Risperdal) 1 Mg Tablet 0.5 MG PO BID Prescribed by: EDWIGE HEAD DO As needed Acetaminophen (Acetaminophen) 325 Mg Tablet 650 MG PO Q4H PRN PRN For Fever ( Reported) Bisacodyl (Dulcolax Rectal) 10 Mg Supp.rect 10 MG RC DAILY PRN PRN For Constipation (Reported) Lorazepam (Lorazepam) 1 Mg Tablet 1 MG PO TID PRN PRN For Anxiety (Reported) Methocarbamol (Methocarbamol) 750 Mg Tablet 750 MG PO DAILY PRN PRN For Spasm ( Reported) Nitroglycerin SL (Nitroglycerin SL) 0.4 Mg Tab.subl 0.4 MG SL Q5MIN PRN PRN For Chest Pain (Reported) Polyethylene Glycol 3350 (Miralax) 17 Gm Powd.pack 17 GM PO DAILY PRN PRN For Constipation Prescribed by: EDWIGE HEAD DO Risperidone (Risperdal) 1 Mg Tablet 0.5 MG PO Q6H PRN PRN Severe agitation Prescribed by: EDWIGE HEAD DO Sennosides (Senna) 8.6 Mg Tablet 17.2 MG PO BID PRN PRN For Constipation Prescribed by: EDWIGE HEAD DO oxyCODONE Concentrate (oxyCODONE Concentrate) 20 Mg/1 Ml Oral.conc 5 MG PO Q4H PRN PRN For Pain Prescribed by: EDWIGE HEAD DO Miscellaneous Medications Loratadine (Loratadine) 10 Mg Capsule 10 MG PO (Reported) Additional med instructions Few medication changes to home regimen For your hip fracture: -Oxycodone concentrated 20mg/ml, 5mg PO ever 6hr as needed for pain For your severe Alzheimer dementia: -Discontinue Seroquel -Continue taking risperidone 0.5 mg bid -Risperidone 0.5 mg every 6 hours as needed for severe agitation For your dyslipidemia: -Discontinue taking niacin ER 3000 mg nightly -Discontinue taking omega-3 fatty acid -Discontinued taking Crestor 20 mg daily Can continue to take all other home medication Followup Plan Discharge Diet: No restrictions Discharge Activity: No restrictions, Other (Limited,patient unable to support self or follow instructions due to advanced dementia) Patient Instructions You were admitted due to a ground-level fall resulting in a right hip fracture. This has been surgically amended. In the course of ER stay, you developed an irregular heartbeat. This too, has been medicated and stable. You are medically stable for discharge from this hospitalization. Best wishes, Follow-up with PCP in: 1 week Time spent 35 minutes Attending Statement I interviewed and examined the patient on the day of discharge. I agree with the assessment and plan as stated above. copies to: Lennox Nguyễn MD Head,Edwige H Dec 29, 2016 17:21 Geovanny Hope MD Jan 04, 2017 17:56
--- NOTE | 2017-01-04 08:46 | PATH ---
SURGICAL PATHOLOGY Attending Physician:Park Archuleta CASE STATUS: Signed Out PATIENT NAME: RENETTA BLACK PID: [id number] : 1945 DATE COLLECTED:12/21/2016 00:00 SPECIMEN: Bone, Pathologic Fracture CLINICAL HISTORY: RIGHT HIP FRACTURE, ABNORMAL BONE CW MULTIPLE HEREDITARY EXOSTOSES IN RIGHT PROXIMAL AND DISTAL FEMUR 1). RIGHT PROXIMAL FEMUR (TIME IN FORMALIN 1107) FINAL DIAGNOSIS: Right Proximal Femur, Resection: - Articular cartilage with degenerative changes comprising of irregular thinning and Fragmentation, suggestive of degenerative joint disease. - The resection margin demonstrates marrow hemorrhage with fat necrosis and devitalized and remodelling bone. - No evidence of malignancy. - Additional sections examined. ICD10: S72.00 GROSS DESCRIPTION: The specimen is received in formalin, labeled with the patient's name, sublabeled as right proximal femur, and consists of a femoral head (5.1 x 4.8 x 4.8 cm) with an irregular jagged hemorrhagic resection margin. The articular surface is duff-yellow smooth and shiny with focal eburnation. An area (4.8 x 2.0 cm) of apparent thick bony growth is identified along the resection margin. No nodules, masses or lesions are identified. Ink code: black-resection margin. Section code: (A-D, E-H) femoral head, serially sectioned, 2 full quartered cross-sections. 12/25/16 Additional sections: (I-L, M-P, Q-T) 3 additional full quartered cross-sections. 12/30/16 ICD-9 CODES: CPT CODES: 1: 94656, 69663 Electronically Signed Out Terence Williamson MD [facility] [address], [place] [address] Technical component performed at [facility], [facility] [address], [place], [address]
== END 2016-12-29 09:30 | disposition hospice, inpatient (51) | DRG 470 ==
LOC: SED 23:00 → OSC 12-19 01:53 → PCC 12-23 02:43
PROVIDERS: ADMIT Hospitalist; ATTEND Hospitalist
PROC: 0SRR0J9 Replacement of Right Hip Joint, Femoral Surface with Synthetic Substitute, Cemented, Open Approach (ICD-10-PCS; principal; 2016-12-21 08:00)
DX: S72.011A Unspecified intracapsular fracture of right femur, initial encounter for closed fracture (principal); F03.91 Unspecified dementia, unspecified severity, with behavioral disturbance; I10 Essential (primary) hypertension; E78.5 Hyperlipidemia, unspecified; I25.10 Atherosclerotic heart disease of native coronary artery without angina pectoris; Z95.1 Presence of aortocoronary bypass graft; Z87.891 Personal history of nicotine dependence; W18.30XA Fall on same level, unspecified, initial encounter; Y92.199 Unspecified place in other specified residential institution as the place of occurrence of the external cause; S09.90XA Unspecified injury of head, initial encounter; K21.9 Gastro-esophageal reflux disease without esophagitis; I48.0 Paroxysmal atrial fibrillation